=== PATIENT | female | born 1945 | race Caucasian/White ===

== ENCOUNTER 2017-07-15 04:22 | Emergency (ER) | payer MEDICARE ==
[~2017-07-15] VITALS: Ht 165.1 cm; Wt 88.9 kg
[~2017-07-15 04:22] MED LIST: AMLODIPINE BESYL5 MG PO; ATENOLOL100 MG PO; BETIMOL5 M1 OP; CARAFATE1 GM/10 ML PO; DAPSONE25 MG PO; IBUPROFEN800 MG PO; IRBESARTAN-HCT1 EAC1 PO; JANUMET 50-1,01 EACH PO; JANUMET XR 50-1 EAC1 PO; LANTUS SOL100 UNIT/1 SQ; LATANOPROST2.5 ML OP; NORCO 5-325 TA1 EACH PO; PROTONIX40 MG PO; SYNTHROID88 MCG PO; VITAMIN D5000 UNIT PO; VYTORIN 10-401 EACH PO; ZANTAC150 MG PO; [UNRECOGNIZED DRUG - OTHER] TP
--- NOTE | 2017-07-15 16:53 | EKG ---
[facility] [address] [facility] [place], [place] [address] Signed Sinus rhythm with 1st degree AV block ST elevation, consider inferior injury or acute infarct ACUTE SC / STEMI Consider right ventricular involvement in acute inferior infarct Abnormal ECG No previous ECGs available Confirmed by GEOVANNI DAWSON MD ([id number]) on 07/15/2017 4:53:02 PM Electronically Signed By: GEOVANNI DAWSON MD 07/15/17 1653 PATIENT NAME: ADE DUMONT Electrocardiogram DATE OF : 43 PHYSICIAN: GEOVANNI DAWSON MD REPORT #: [id number] REPORT IS CONFIDENTIAL AND NOT TO BE RELEASED WITHOUT AUTHORIZATION
== END 2017-07-15 05:17 | disposition short-term general hospital (02) ==
LOC: ED 04:22
DX: I21.3 ST elevation (STEMI) myocardial infarction of unspecified site (principal); E03.9 Hypothyroidism, unspecified; E11.9 Type 2 diabetes mellitus without complications; Z88.8 Allergy status to other drugs, medicaments and biological substances; Z88.1 Allergy status to other antibiotic agents; Z79.899 Other long term (current) drug therapy; Z79.4 Long term (current) use of insulin
CPT/HCPCS: 71045; 80053; 84484; 85025; 93005; 93010; 96374; 99285; J1644

== ENCOUNTER 2018-07-19 02:43 | Emergency (ER) | payer MEDICARE ==
[~2018-07-19] VITALS: Ht 165.1 cm; Wt 90.7 kg
--- OUTSIDE RECORDS SUMMARY | ~2018-07-19 | XMS | Encounter Summary ---
Demographics + + + | Address | [address] | | | [place] [address] | + + + | Home Phone | | + + + | Preferred Language | Unknown | + + + | Marital Status | Single | + + + | Tenriism Affiliation | PEN | + + + | Race | White | + + + | Ethnic Group | Not or | + + + Author + + + | Author | [facility] | + + + | Organization | [facility] | + + + | Address | Unknown | + + + | Phone | Unavailable | + + + Support + + + + + | Name | Relationship | Address | Phone | + + + + + | Kenton Arshad | [address] | [address] | | | | | [place] | | | | | [address] | | + + + + + Care Team Providers + +------+ + | Care Staffing Operations Manager Name | Role | Phone | + +------+ + | Kaleb Ryder DO | PCP | | + +------+ + Encounter Details +--------+ + + + + | Date | Type | Department | Care Team | Description | +--------+ + + + + | 05/21/ | Orders Only | Dermatology | Radha Barillas MD | | | 2014 | | Medical at [facility] 16th | [address] | | | | | Floor [address] | [place], [place] | | | | | Michelle Mail Code: | [address] | | | | | [facility] | [phone] | | | | | Health and Healing, | | | | | | 16th floor | | | | | | [place], [place] | | | | | | [address] | | | | | | [phone] | | | +--------+ + + + + Social History + +-------+ +--------+------+ | Tobacco Use | Types | Packs/Day | Years | Date | | | | | Used | | + +-------+ +--------+------+ | Never Smoker | | | | | + +-------+ +--------+------+ + + +---------+ + | Alcohol Use | Drinks/Week | oz/Week | Comments | + + +---------+ + | Yes | | | | + + +---------+ + + + + | Sex Assigned at | Date Recorded | | | | + + + | Not on file | | + + + + + + + | Job Start Date | Occupation | Industry | + + + + | Not on file | Not on file | Not on file | + + + + + + + + | Travel History | Travel Start | Travel End | + + + + + + | No recent travel history available. | + + documented as of this encounter Plan of Treatment Not on filedocumented as of this encounter Visit Diagnoses Not on filedocumented in this encounter"
--- OUTSIDE RECORDS SUMMARY | ~2018-07-19 | XMS | Encounter Summary ---
Demographics + + + | Address | [address] | | | [place] [address] | + + + | Home Phone | | + + + | Preferred Language | Unknown | + + + | Marital Status | Single | + + + | Mandaen Affiliation | PEN | + + + | Race | White | + + + | Ethnic Group | Not or | + + + Author + + + | Author | [facility] | + + + | Organization | [facility] | + + + | Address | Unknown | + + + | Phone | Unavailable | + + + Support + + + + + | Name | Relationship | Address | Phone | + + + + + | Kenton Arshad | [address] | [address] | | | | | [place] | | | | | [address] | | + + + + + Care Team Providers + +------+ + | Care Carrier Packer Name | Role | Phone | + +------+ + | Aleksey Kaleb | PCP | | + +------+ + Reason for Visit + + + | Reason | Comments | + + + | Prior Authorization | [facility]uxan | | Request | | + + + Encounter Details +--------+ + + + + | Date | Type | Department | Care Team | Description | +--------+ + + + + | 12/26/ | Documentati | Dermatology | Radha Barillas MD | Prior Authorization | | 2016 | on | Medical at [facility] [address] | [address] | Request (rituxan) | | | | Floor [address] | [place], [place] | | | | | Ave Mail Code: | [address] | | | | | [address] [facility] | [phone] | | | | | Health and Healing, | | | | | | 16 floor | | | | | | [place], [place] | | | | | | [address] | | | | | | [phone] | | | +--------+ + + + [...] + + +---------+ + | Yes | 1 Standard drinks | 0.6 | | | | or equivalent | | | + + +---------+ + [...]
--- OUTSIDE RECORDS SUMMARY | ~2018-07-19 | XMS | Encounter Summary ---
Demographics + + + | Address | [address] | | | [place] [address] | + + + | Home Phone | | + + + | Preferred Language | Unknown | + + + | Marital Status | Single | + + + | Restorationism Affiliation | PEN | + + + | Race | White | + + + | Ethnic Group | Not or | + + + Author + + + | Author | [facility] | + + + | Organization | [facility] | + + + | Address | Unknown | + + + | Phone | Unavailable | + + + Support + + + + + | Name | Relationship | Address | Phone | + + + + + | Kenton Arshad | [address] | [address] | | | | | [place] | | | | | [address] | | + + + + + Care Team Providers + +------+ + | Care Photolithographer Name | Role | Phone | + +------+ + | Kaleb Ryder DO | PCP | | + +------+ + Encounter Details +--------+ + + + + | Date | Type | Department | Care Team | Description | +--------+ + + + + | 09/17/ | Documentati | Dermatology | Kaleb Ryder DO | | | 2016 | on | Medical at [facility] 16th | [facility] | | | | | Floor [address] | Internal Medicin | | | | | Ave Mail Code: | [address] [facility] | | | | | [address] Center for | [place] [address] | | | | | Health and Healing, | [phone] | | | | | 16th floor | | | | | | [place], [place] | | | | | | [address] | | | | | | [phone] | | | +--------+ + + + [...]
--- OUTSIDE RECORDS SUMMARY | ~2018-07-19 | XMS | Encounter Summary ---
Demographics + + + | Address | [address] | | | [place] [address] | + + + | Home Phone | | + + + | Preferred Language | Unknown | + + + | Marital Status | Single | + + + | Anglican Affiliation | PEN | + + + | Race | White | + + + | Ethnic Group | Not or | + + + Author + + + | Author | [facility] | + + + | Organization | [facility] | + + + | Address | Unknown | + + + | Phone | Unavailable | + + + Support + + + + + | Name | Relationship | Address | Phone | + + + + + | Kenton Arshad | [address] | [address] | | | | | [place] | | | | | [address] | | + + + + + Care Team Providers + +------+ + | Care Ripening Room Attendant Name | Role | Phone | + +------+ + | Kaleb Ryder DO | PCP | | + +------+ + Encounter Details +--------+ + + + + | Date | Type | Department | Care Team | Description | +--------+ + + + + | 09/17/ | Documentati | Dermatology | Kaleb Ryder DO | | | 2016 | on | Medical at [facility] 16th | [facility] | | | | | Floor [address] | Internal Medicin | | | | | Ave Mail Code: | [address] [facility] | | | | | [address] Center for | [place] [address] | | | | | Health and Healing, | [phone] | | | | | 16th floor | | | | | | [place], [place] | | | | | | [address] | | | | | | [phone] | | | +--------+ + + + [...]
--- OUTSIDE RECORDS SUMMARY | ~2018-07-19 | XMS | Encounter Summary ---
Demographics + + + | Address | [address] | | | [place] [address] | + + + | Home Phone | | + + + | Preferred Language | Unknown | + + + | Marital Status | Single | + + + | Sikhism Affiliation | PEN | + + + | Race | White | + + + | Ethnic Group | Not or | + + + Author + + + | Author | [facility] | + + + | Organization | [facility] | + + + | Address | Unknown | + + + | Phone | Unavailable | + + + Support + + + + + | Name | Relationship | Address | Phone | + + + + + | Kenton Arshad | [address] | [address] | | | | | [place] | | | | | [address] | | + + + + + Care Team Providers + +------+ + | Care Furnace Repairer Helper Name | Role | Phone | + +------+ + | Kaleb Ryder DO | PCP | | + +------+ + Encounter Details +--------+ + + + + | Date | Type | Department | Care Team | Description | +--------+ + + + + | 12/07/ | Documentati | Dermatology | Radha Barillas MD | | | 2014 | on | Medical at [facility] 16th | [address] | | | | | Floor [address] | [place], [place] | | | | | Michelle Mail Code: | [address] | | | | | [address] [facility] | [phone] | | | | | Health and Healing, | | | | | | 16th floor | | | | | | [place], [place] | | | | | | [address] | | | | | | [phone] | | | +--------+ + + + [...] | Yes | 1 Standard drinks | 0.5 | | | | or equivalent | [...]
--- OUTSIDE RECORDS SUMMARY | ~2018-07-19 | XMS | Encounter Summary ---
Demographics + + + | Address | [address] | | | [place] [address] | + + + | Home Phone | | + + + | Preferred Language | Unknown | + + + | Marital Status | Single | + + + | Pentecostalism Affiliation | PEN | + + + | Race | White | + + + | Ethnic Group | Not or | + + + Author + + + | Author | [facility] | + + + | Organization | [facility] | + + + | Address | Unknown | + + + | Phone | Unavailable | + + + Support + + + + + | Name | Relationship | Address | Phone | + + + + + | Kenton Arshad | [address] | | | | | [place] | | | | | [address] | | + + + + + Care Team Providers + +------+ + | Care Flexographic Printing Machinist Name | Role | Phone | + +------+ + | Aleksey Kaleb | PCP | | + +------+ + Reason for Visit + + + | Reason | Comments | + + + | Examination Of Skin | f/up oral BP | + + + Encounter Details +--------+---------+ + + + | Date | Type | Department | Care Team | Description | +--------+---------+ + + + | 08/15/ | Office | Dermatology | Radha Barillas MD | Bullous pemphigoid | | 2016 | Visit | Medical at [facility] [address] | [address] | (Primary Dx); | | | | Floor [address] | [place], [place] | Medication | | | | Ave Mail Code: | [id number] | monitoring | | | | [facility] | [phone] | encounter; | | | | Health and Healing, | | Lichenification and | | | | 16th floor | | lichen simplex | | | | [place], [place] | | chronicus; | | | | [address] | | Seborrheic | | | | [phone] | | keratoses, inflamed; | | | | | | Personal history of | | | | | | malignant melanoma | | | | | | of skin; Skin exam | | | | | | for malignant | | | | | | neoplasm; Other | | | | | | specified conditions | | | | | | influencing health | | | | | | status(V49.89) | +--------+---------+ + + + Social History + +-------+ [...] + + documented as of this encounter Last Filed Vital Signs + +---------+ + + | Vital Sign | Reading | Time Taken | Comments | + +---------+ + + | Blood Pressure | 142/88 | 08/16/2015 1:35 PM | | | | | PDT | | + +---------+ + + | Pulse | 64 | 08/16/2015 1:35 PM | | | | | PDT | | + +---------+ + + | Temperature | - | - | | + +---------+ + + | Respiratory Rate | 14 | 08/16/2015 1:35 PM | | | | | PDT | | + +---------+ + + | Oxygen Saturation | - | - | | + +---------+ + + | Inhaled Oxygen | - | - | | | Concentration | | | | + +---------+ + + | Weight | - | - | | + +---------+ + + | Height | - | - | | + +---------+ + + | Body Mass Index | - | - | | + +---------+ + + documented in this encounter Patient Instructions Patient Instructions Radha Barillas MD - 08/16/2015 2:00 PM PDT1.) increased dapsone to 1 50 mg (1.5 tabs) per day 2.) get labs in 1 month (CBC and CMP to monitor for dapsone side effects) 3.) injection into spot on buttock 4.) repeat freezing of right forearm DAPSONE Dermatology patient information How does this medication work? Dapsone inhibits the movement of Neutrophils, a type of white blood cells, into your skin. What is this medication commonly used for? ? It is used to treat dermatitis herpetiformis ? It is used to treat bullous pemphigoid and pemphigus ? It is used to treat lichen planus ? It is used to treat bullous lupus ? It is used to treat neutrophilic dermatoses What are some things I need to know, or do, while I am on this medication? ? Dapsone can cause very low blood counts in people who are deficient in an enzyme called G mnpkpy-4-Dbybtqvdp-Dehydrogenase (G6PD). We will test your enzyme level before starting the medication. ? Use control you trust to avoid getting while on this medication. ? Tell your provider if you are . ? Talk to your provider before starting any other prescription and/or over the counter medi cations while using this drug. What are some side effects of this medication? ? Headaches, dizziness, and nausea are common. Take your medication with food and notify y our provider if the symptoms persist. ? Sensitivity to sunlight. Use sunscreen and avoid prolonged sun exposure. ? Weakness of the hands or feet. This is usually reversible when the medication is stopped . ? Low blood counts are possible, so we will monitor your blood cell levels while you are on this medication. ? If you feel feverish, weak, or develop symptoms of a cold that do not improve during the first few weeks of taking the Dapsone, stop the medication immediately and call the clinic. ? Notify your provider if you develop yellowing of the skin or eyes, or if you develop unus ual bruising. Please notify your provider with questions or concerns. Please also refer to the medicatio n package insert for additional information. and ca documented in this encounter Progress Notes Radha Barillas MD - 08/18/2015 8:49 AM PDTI have reviewed the above note and edited the h istory, ROS, exam and the assessment and plan in the above scribed note of my visit with nakia s patient recorded by Ericka Wilson. Radha Barillas MD MSCE Flight Engineer Instructor of Dermatology [facility] arstephiestacey Ericka - 0 08/16/2015 1:44 PM PDT I, Ericka Wilson ([facility]), am functioning as a scribe for Radha Barillas M.D., Professor, [employer]. DERMATOLOGY FOLLOW UP PATIENT VISIT Last Appointment in [facility] was 05/24/2015 with Radha Barillas MD. Dx/Rx: BP/MMP --s/p MMF 1 gram BID (start date 11/2014 d/c 04/2015 due to cost and did not see improvemen t) --s/p methotrexate 20mg q week (increased to 20 mg weekly July of 2014- d/c 11/2014) --fluocinonide ointment PRN --s/p minocycline 100mg BID (took from 05/2014 - July 2014, then d/c'd due to no improvemen t) --s/p IVIG x 3 doses. Skin improvement without MM improvement --rituxan June of 2014 -- had hives on face and stopped. Given in home town. -- started dapsone 06/2015 after normal G6PD at 100 mg daily. 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 female who presents for follow up for bullous pemphigoid/mu cous membrane pemphigoid overlap and a skin full body check. Since last visit and normal G6P D (05/24/2015) patient has been taking dapsone 100 mg daily. Tolerating this dose of dapsone well. She denies hand or foot weakness or changes in sensation. Her H and H was normal on last check. She does not feel tired. She reports that her oral blisters are still present and she has a hard time swallowing. She reports that maybe her throat is less sore. Patient has a history of melanoma. Her melanoma occurred in 1960. She reports that she wo re boots while riding horses and developed an area that bleed. It was treated with excision and skin graft. She has never had a recurrent. She reports active areas of BP on her posterior neck and her right buttock. No other areas active. Today she has a concerning spot on the right arm that was previously treated with LN2 at [facility] last office. She would like to have this spot retreated. No other skin or systemic complaints. ROS: +dysphagia, odynophagia, weight loss (stable since last appointment), low appetite. Initial visit Started May of 2013 initially on her lower legs, chest and back. Biopsy was done of R tib ia and H&E and DIF was consistent with bullous pemphigoid. States that eventually she de veloped lesion in her mouth and nose. This started approximately Fall 2013 after a dental cl eaning. She was on prednisone in the very beginning of her course 2 years ago. Doesn't remem jarred dosing. Denies being clear from the prednisone. Was transitioned to MTX. started on IVIG Dec 2013. States that her skin has improved but her mouth and throat has continued to break out. Uses fluocinonide ointment as needed on her skin. Has tried lidocaine for her mouth ulc ers, doesn't help very much. She denies any redness of her eyes, gritty feeling or erosions. Does get nose bleeds and ulcers in her nose. Does have dysphagia and odynophagia. Has lost 30 lbs over the last 2 years. Has hx of one genital erosion. Denies nausea, vomitting, GI pa in, fever, chills, malaise or other systemic symptoms. Oral biopsy 05/21/2014 confirm MMP PAST MEDICAL HISTORY: - diabetes mellitus - hypertension - hypothyroidism - h/o MRSA neck abscess - melanoma age 15 unknown depth - glaucoma - vit D deficiency - primary hyperparathyroidism - last DEXA T score -1.5 SOCIAL HISTORY: First grandchild born spring 2014 in [place] Lives in [facility] and enjoys the annual round up MEDICATIONS: Current Medication List Name Sig ATENOLOL 50 MG TABLET ATORVASTATIN 10 MG TABLET Take 10 mg by mouth once daily. VITAMIN D-3 ORAL Take 1,000 Units by mouth. CLONIDINE 0.2 MG/24 HR WEEKLY TRANSDERMAL PATCH CLONIDINE HCL 0.1 MG TABLET Take 0.1 mg by mouth two times daily. CLOTRIMAZOLE 10 MG KRUNAL Take 1 tablet by mouth three times daily. Allow to dissolve for 1 5-30 minutes. DAPSONE 100 MG TABLET Take 1 tablet by mouth once daily. DEXAMETHASONE 0.5 MG/5 ML ORAL ELIXIR Swish and spit for 2 minutes three times per day FLUOCINONIDE 0.05 % TOPICAL OINTMENT Apply to affected area two times daily. Apply a thin layer to affected area. INSULIN GLARGINE 100 UNIT/ML (3 ML) SUBCUTANEOUS PEN Inject 42 Units under the skin (SUBC) once daily at bedtime. LATANOPROST 0.005 % EYE DROPS 1 drop once daily in the evening. LEVOTHYROXINE 88 MCG TABLET Take 88 mcg by mouth once daily. RANITIDINE 300 MG TABLET Take 300 mg by mouth two times daily. SUCRALFATE 100 MG/ML ORAL SUSPENSION Take by mouth once daily. TIMOLOL MALEATE 0.5 % EYE DROPS 1 drop two times daily. ALLERGIES: No Known Allergies PHYSICAL EXAMINATION: BP 142/88 | Pulse 64 | RR 14 The patient is a well appearing female who is alert with normal mood and affect. Awake, a lert and oriented xs 3. Pleasant and cooperative mood. A skin examination was performed including the scalp, face, eyelids, ears, lips, neck, ches t, back, abdomen, buttocks, R+L arms and hands, R+L legs and feet, and nails. Findings were within normal limits except for the following: -- 3 lichenified papules on the posterior neck -- right buttock there is a 5 mm lichenified papule -- 1 cm bulla vertex scalp -- right forearm with stuck on white verrucous papule -- left foot, between 1st and 2nd toes is a 4 mm light brown papule with scattered brown ma cules within - patient reports decades of stability -- left medial foot with a well healed scar without evidence of recurrence -- Normal # of nevi, the signature nevus is a 2-4 mm medium brown symmetric macule with a r eticulated pigment network on dermoscopy -- the gingiva and buccal mucosa are erythematous and desquamating. There is no normal muc marcela on the gingiva or the buccal mucosa 05/21/2014 DIF: FINDINGS: There is moderately intense linear deposition of both IgG and C3 found along the basement membrane zone. Additionally, there is patchy linear deposition of fibrinogen found at the basement membrane zone as well. There is no shaggy morphology to the deposition of fibrinogen. There is no specific deposition of IgM or IgA identified in these sections. COMMENTS/DIAGNOSIS: The above findings are consistent with a diagnosis of pemphigoid. It is not possible to separate cicatricial vs bullous pemphigoid on immunopathologic specimens. There are no findings to support a diagnosis of lichen planus in these sections. ASSESSMENT AND PLAN: 1. BP/MMP overlap, with poorly controlled oral disease. She has failed several medications and is unable to afford to continue the MMF solution. She is now using dapsone 100mg daily for her oral disease, but with no improvement. She is using fluocinonide as needed for her s kin lesions prn. -- Increase dapsone from 100mg to 150 mg PO pending G6PD level today. -- Ok to continue topical fluocinonide twice a day to spots on your body. -- Labs from 08/05 - WNL. Will have repeat CBC and CMP in one month to monitor for dapsone s nery effects. External order slip given. If H and H still normal and no improvement in disea se, consider increase to 200 mg daily of dapsone 2. Hx of melanoma, unknown depth, left medial foot -- No evidence of recurrence -- UV min reviewed -- ABCDEs reviewed 3. Inflamed Seborrheic keratosis, right arm (previously frozen, but did not resolve) Procedure: Liquid Nitrogen application Prior to beginning the procedure, PARQ were discussed. Liquid nitrogen was applied for 6-1 0 seconds with 2 freeze/thaw cycles to a total of 1 lesion. The expected blistering or scab doug reaction, as well as the possibility of hyperpigmented or hypopigmented scars was expla ined to the patient. The patient was counseled to return for further evaluation if lesion f ails to fully resolve after healing. 4. 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 All equipment required was ready a nd available. The patient was positioned appropriately. After PARQ addressed and scar facto rs discussed, the area was prepped with an isopropyl alcohol pad. 0.2 mls of 10 mg/ml kenalo g was injected. Blood loss was minimal. Patient reports no pain after the procedure. RETURN VISIT: 3-4 months or sooner if needed Ericka Wilson CMA Department of Dermatology [facility] 08/16/2015 documented i n this encounter Plan of Treatment Not on filedocumented as of this encounter Procedures + +--------+ + + + | Procedure Name | Priori | Date/Time | Associated Diagnosis | Comments | | | ty | | | | + +--------+ + + + | WA DESTRUC BENIGN | Routin | 08/18/2015 | Seborrheic | | | LESION, UP TO 14 | e | 9:04 AM | keratoses, inflamed | | | LESIONS | | PDT | Other specified | | | | | | conditions | | | | | | influencing health | | | | | | status(V49.89) | | + +--------+ + + + | WA INJ INTO SKIN | Routin | 08/16/2015 | Lichenification | | | LESIONS, UP TO AND | e | 2:02 PM | and lichen simplex | | | INCLUDE 7 LESIONS | | PDT | chronicus | | + +--------+ + + + documented in this encounter Visit Diagnoses + + | Diagnosis | + + | Bullous pemphigoid - Primary Pemphigoid | + + | Medication monitoring encounter Encounter for therapeutic drug monitoring | + + | Lichenification and lichen simplex chronicus | + + | Seborrheic keratoses, inflamed | + + | Personal history of malignant melanoma of skin | + + | Skin exam for malignant neoplasm Screening for malignant neoplasm of the skin | + + | Other specified conditions influencing health status(V49.89) Other specified | | conditions influencing health status | + + documented in this encounter Administered Medications + +--------+ + +------+---------+ | Medication Order | MAR | Action | Dose | Rate | Site | | | Action | Date | | | | + +--------+ + +------+---------+ | Triamcinolone Acetonide 10 | Given | 08/16/2015 | 10 mg/mL | | Right | | Mg/ml Intralesional | | 14:17 | | | Buttock | | | | PDT | | | | + +--------+ + +------+---------+ +---+---+ | | | +---+---+ documented in this encounter"
--- OUTSIDE RECORDS SUMMARY | ~2018-07-19 | XMS | Encounter Summary ---
Demographics + + + | Address | [address] | | | [place] [address] | + + + | Home Phone | | + + + | Preferred Language | Unknown | + + + | Marital Status | | + + + | Christian Affiliation | [id number] | + + + | Race | Unknown | + + + | Ethnic Group | Unknown | + + + Author + + + | Author | [facility] | | | and [place] | + + + | Organization | [facility] | | | and [place] | + + + | Address | Unknown | + + + | Phone | Unavailable | + + + Support + + +---------+ + | Name | Relationship | Address | Phone | + + +---------+ + | Marcelo Arshad | ECON | Unknown | | + + +---------+ + Care Team Providers + +------+ + | Care Director Of Channel Marketing Name | Role | Phone | + +------+ + | Kaleb Ryder DO | PCP | | + +------+ + Reason for Visit + + + | Reason | Comments | + + + | Medication Refill | | + + + Encounter Details +--------+--------+ + + + | Date | Type | Department | Care Team | Description | +--------+--------+ + + + | 05/30/ | Refill | [facility] | Vern Valdivia MD | Medication Refill | | 2018 | | CARDIOLOGY [address] | | | | | | [place], | | | | | | [place] [address] | | | | | | [phone] | | | +--------+--------+ + + + Social History + +-------+ +--------+------+ | Tobacco Use | Types | Packs/Day | Years | Date | | | | | Used | | + +-------+ +--------+------+ | Never Smoker | | | | | + +-------+ +--------+------+ + +---+---+---+ | Smokeless Tobacco: | | | | | Never Used | | | | + +---+---+---+ + + + | Sex Assigned at [...] + + documented as of this encounter Functional Status + + + + | Functional Status | Response | Date of Assessment | + + + + | Are you deaf or do you have serious | No | 07/16/2017 | | difficulty hearing? | | | + + + + | Are you blind or do you have serious | No | 07/16/2017 | | difficulty seeing, even when wearing | | | | glasses? | | | + + + + | Do you have serious difficulty walking or | No | 07/16/2017 | | climbing stairs? (5 years old or older) | | | + + + + | Do you have difficulty dressing or bathing? | No | 07/16/2017 | | (5 years old or older) | | | + + + + | Because of a physical, mental, or emotional | No | 07/16/2017 | | condition, do you have difficulty doing | | | | errands alone such as visiting a doctor's | | | | office or shopping? [15 years old or | | | | older)] | | | + + + + + + + + | Cognitive Status | Response | Date of Assessment | + + + + | Because of a physical, mental, or emotional | No | 07/16/2017 | | condition, do you have serious difficulty | | | | concentrating, remembering, or making | | | | decisions? (5 years old or older) | | | + + + + documented as of this encounter Plan of Treatment Not on filedocumented as of this encounter Visit Diagnoses Not on filedocumented in this encounter"
--- OUTSIDE RECORDS SUMMARY | ~2018-07-19 | XMS | Encounter Summary ---
Demographics + + + | Address | [address] | | | [place] [address] | + + + | Home Phone | | + + + | Preferred Language | Unknown | + + + | Marital Status | | + + + | Gnosticist Affiliation | 1028 | + + + | Race | Unknown | + + + | Ethnic Group | Unknown | + + + Author + + + | Author | [facility] | | | and Tomana | + + + | Organization | [facility] | | | and [...] Team Providers + +------+ + | Care Storage Solutions Architect Name | Role | Phone | + +------+ + | Kaleb Ryder DO | PCP | | + +------+ + Reason for Visit + + + | Reason | Comments | + + + | Follow-up | | + + + Encounter Details +--------+---------+ + + + | Date | Type | Department | Care Team | Description | +--------+---------+ + + + | 04/26/ | Office | [facility] | Vern Valdivia MD | Dyslipidemia | | 2019 | Visit | CARDIOLOGY [address] | | (Primary Dx); | | | | [place], | | Essential | | | | [place] [address] | | hypertension | | | | [phone] | | | +--------+---------+ + + + Social History [...] this encounter Last Filed Vital Signs + + + + | Vital Sign | Reading | Time Taken | + + + + | Blood Pressure | 140/80 | 04/26/2018912 PDT | + + + + | Pulse | 74 | 04/26/2018912 PDT | + + + + | Temperature | - | - | + + + + | Respiratory Rate | 18 | 04/26/2018912 PDT | + + + + | Oxygen Saturation | - | - | + + + + | Inhaled Oxygen | - | - | | Concentration | | | + + + + | Weight | 90 kg (198 lb 6.6 | 04/26/2018912 PDT | | | oz) | | + + + + | Height | 165.1 cm (5' 5") | 04/26/2018912 PDT | + + + + | Body Mass Index | 33.02 | 04/26/2018912 PDT | + + + + documented in this encounter Functional Status + + + [...] + + documented as of this encounter Patient Instructions Patient Instructions Shreya Clarke RN - 04/26/2018 9:30 PDT Blood test: Non-fasting Date Due: today Where to go for labs: [facility]- [address] [facility] Blood test: Fasting- 12 hours prior to test, no food, no caffiene, water is ok Date Due: 8 weeks, middle of June Where to go for labs: Lab of your choice, please see lab orders, take them with you to the lab. Increase atorvastatin to 40 mg one daily Stop clopidogrel (Plavix) on August 08, 2018 Follow up appointment: 6 months Provider: Vern Valdivia MD Date: Check-In Time: documented in this encounter Progress Notes Vern Valdivia MD - 04/26/2018 0930 PDT PATIENT NAME: Matilda Arshad : 1945: AGE: 72 y.o. PRIMARY CARE: Kaleb Ryder DO CARDIOLOGY CLINIC PROGRESS NOTE Ms. Arshad presents for clinic follow-up. Since her previous visit of 12/28/17, she is doi ng well from a cardiac viewpoint without complaints of chest pain. Her blood pressure had b een elevated and after calling our office we added hydrochlorothiazide 25 mg daily and her b lood pressure control had improved. Her LDL cholesterol on 02/25/18 was 85 on her increased dose of atorvastatin 20 mg daily. She has not noticed worsening myalgia on the higher dose of atorvastatin. MEDICATIONS: Current Outpatient Prescriptions Medication Sig Dispense Refill aspirin 81 mg chewable tablet Take 1 tablet by mouth Daily. 90 tablet 3 atorvaSTATin (LIPITOR) 40 mg tablet Take 1 tablet by mouth nightly. 30 tablet 5 brimonidine (ALPHAGAN) 0.2% ophthalmic solution Cholecalciferol (VITAMIN D3) 2000 units CHEW Take 2,000 Units by mouth Daily. clopidogrel (PLAVIX) 75 mg tablet Take 1 tablet by mouth Daily. Stop clopidogrel on 08/08 60 tablet 0 hydroCHLOROthiazide 25 mg tablet Take 1 tablet by mouth Daily. 30 tablet 3 insulin aspart (NOVOLOG FLEXPEN) 100 units/mL injection pen Inject 5-10 Units under the skin 3 times daily (before meals). insulin glargine (LANTUS SOLOSTAR) 100 units/mL injection (pen) Inject 58 Units under t he skin nightly. latanoprost (XALATAN) 0.005% ophthalmic solution Place 1 drop into both eyes nightly. levothyroxine (SYNTHROID) 88 mcg tablet Take 88 mcg by mouth every morning (before chad kfast). metoprolol succinate (TOPROL-XL) 100 mg ER tablet Take 100 mg by mouth Daily. nitroglycerin (NITROSTAT) 0.4 mg SL tablet Take one tablet under tongue as needed for c hest pain, may repeat every 5 minutes up to 3 doses. If no relief after 3rd dose, call 911. 25 tablet 11 telmisartan (MICARDIS) 80 MG tablet Take 1 tablet by mouth Daily. 90 tablet 3 timolol maleate (TIMOPTIC) 0.5% ophthalmic solution Place 1 drop into both eyes 2 times daily. No current facility-administered medications for this visit. ALLERGIES Allergies Allergen Reactions Ciprofloxacin Rash Shellfish Other (See Comments) and Sensitivity Sneezed and turns red. PHYSICAL EXAM Vital signs: Vitals: 04/26/18 0913 BP: 140/80 Pulse: 74 Resp: 18 Admit Weight: Weight: 90 kg (198 lb 6.6 oz) Current weight: Weight: 90 kg (198 lb 6.6 o z) Body mass index is 33.02 kg/m. General: Alert, resting comfortably Chest: Clear Cardiovascular: Nondisplaced apical impulse, regular rhythm, S4 present, no S3, jugular kranthi ous pressure normal Gastrointestinal: Abdomen soft, non-tender, normal bowel sounds, no organomegaly nor masses . Extremities: No edema Neuro: within normal LABS: Appointment on 04/26/2018 Component Date Value Ref Range Status Na 04/26/2018 137 136 - 145 mmol/L Final K 04/26/2018 4.1 3.4 - 5.1 mmol/L Final Cl 04/26/2018 101 98 - 107 mmol/L Final CO2 04/26/2018 27 20 - 31 mmol/L Final Anion Gap 04/26/2018 9 3 - 16 mmol/L Final Glucose 04/26/2018 241* 60 - 106 mg/dL Final BUN 04/26/2018 14 9 - 23 mg/dL Final Creatinine 04/26/2018 1.15* 0.55 - 1.02 mg/dL Final eGFR if not 04/26/2018 46* >=60 mL/min/1.73m2 Final Ca 04/26/2018 10.8* 8.7 - 10.4 mg/dL Final BUN/Creatinine Ratio 04/26/2018 12.2 Final IMAGING: No results found. DIAGNOSES AND ASSESSMENTS: 1. Coronary atherosclerosis: Patient has no angina, she is status post RCA PCI in July 2017 . She continues on dual antiplatelet therapy 2. Dyslipidemia: LDL remains above target, will increase atorvastatin dose 3. Hypertension: Blood pressure control improved with addition of hydrochlorothiazide PLAN OR RECOMMENDATIONS: [facility] today Increase atorvastatin 40 mg daily Fasting lipid profile, ALT 8 weeks Discontinue clopidogrel August 08, 2018 Clinic follow-up 6 months or sooner as needed Recommend whole food plant-based diet, increase aerobic activity I appreciate the opportunity of participating in the care of this patient. Vern Valdivia MD,[facility], 04/27/2018 11:27 documented in this encoun ter Plan of Treatment + +--------+ + + | Name | Priori | Associated Diagnoses | Order Schedule | | | ty | | | + +--------+ + + | Lipid Panel | Routin | Dyslipidemia | Expected: | | | e | | 05/27/2018, Expires: | | | | | 04/26/2019 | + +--------+ + + | ALT | Routin | Dyslipidemia | Expected: | | | e | | 05/27/2018, Expires: | | | | | 04/27/2019 | + +--------+ + + documented as of this encounter Results Basic Metabolic Panel (04/26/2018 10:35 PDT) + + + + + + | Component | Value | Ref Range | Performed | Pathologist | | | | | At | Signature | + + + + + + | Na | 137 | 136 - 145 | [facility] | | | | | mmol/L | [facility] | | | | [facility] | [facility] | | | | | | LABORATORY | | + + + + + + | K | 4.1 | 3.4 - 5.1 | [facility] | | | | | mmol/L | [facility] | | | | | | [facility] | | | | | | [facility] - | | | | | | LABORATORY | | + + + + + + | Cl | 101 | 98 - 107 mmol/L | [facility] | | | | | | [facility] | | | | | | [facility] | | | | | [facility] - | | | | | | LAB[facility]ATORY | | + + + + + + | CO2 | 27 | 20 - 31 mmol/L | [facility] | | | | | | [facility] | | | | | | [facility] | | | | [facility] - | | | | | | LAB[facility]ATORY | | + + + + + + | Anion Gap | 9 | 3 - 16 mmol/L | [facility] | | | | | | [facility] | | | | | | [facility] | | | | [facility] - | | | | | | LAB[facility]ATORY | | + + + + + + | Glucose | 241 (H) | 60 - 106 mg/dL | [facility] | | | | | | [facility] | | [facility] | | | [facility] | | | | | | [facility] - | | | | | | LABORATORY | | + + + + + + | BUN | 14 | 9 - 23 mg/dL | [facility] | | | | | | [facility] | | | | | | [facility] | | | | | [facility] - | | | | | | LABORATORY | | + + + + + + | Creatinine | 1.15 (H) | 0.55 - 1.02 | [facility] | | | | | mg/dL | [facility] | [facility] | | | | | | [facility] - | | | | | | LABORATORY | | + + + + + + | eGFR if not | 46 (L) | >=60 | [facility] | | | | | mL/min/1.73m2 | [facility] | | [facility] | | | | | | [facility] - | | | | | | LABORATORY | | + + + + + + | Ca | 10.8 (H) | 8.7 - 10.4 | [facility] | | | | | mg/dL | [facility] | | | | | | [facility] | | | | | | [facility] - | | | | | | LABORATORY | | + + + + + + | BUN/Creatin | 12.2 | | [facility] | | | ine Ratio | | | [facility] | | | | | | [facility] | | | | | | [facility] - | | | | | | LABORATORY | | + + + + + + + + | Specimen | + + | Blood | + + + + + + + | Performing | Address | City/State/Zipcode | Phone Number | | Organization | | | | + + + + + | [facility] | [address] | [place] | [phone] | | [facility] | | [address] | | | - LABORATORY | | | | + + + + + documented in this encounter Visit Diagnoses + + | Diagnosis | + + | Dyslipidemia - Primary Other and unspecified hyperlipidemia | + + | Essential hypertension Unspecified essential hypertension | + + documented in this encounter
--- OUTSIDE RECORDS SUMMARY | ~2018-07-19 | XMS | Encounter Summary ---
Demographics + + + | Address | [address] | | | [place] [address] | + + + | Home Phone | | + + + | Preferred Language | Unknown | + + + | Marital Status | Single | + + + | Roman Catholic Affiliation | PEN | + + + | Race | White | + + + | Ethnic Group | Not or | + + + Author + + + | Author | [facility] | + + + | Organization | [facility] | + + + | Address | Unknown | + + + | Phone | Unavailable | + + + Support + + + + + | Name | Relationship | Address | Phone | + + + + + | Kenton Arshad | [address] | [address] | | | | | [place] | | | | | [address] | | + + + + + Care Team Providers + +------+ + | Care Motor And Generator Assembler Name | Role | Phone | + +------+ + | Kaleb Ryder DO | PCP | | + +------+ + Reason for Visit + + + | Reason | Comments | + + + | Discussion | | + + + Encounter Details +--------+ + + + + | Date | Type | Department | Care Team | Description | +--------+ + + + + | 12/03/ | Telephone | Dermatology | Radha Barillas MD | Discussion | | 2014 | | Medical at [facility] 16 | [address] | | | | | Floor [address] | [place], [place] | | | | | Ave Mail Code: | [address] | | | | | [address] [facility] | [phone] | | | | | Health and Healing, | | | | | | 16 floor | | | | | | [place], [place] | | | | | | [address] | | | | | | [phone] | | | +--------+ + + + [...]
--- OUTSIDE RECORDS SUMMARY | ~2018-07-19 | XMS | Encounter Summary ---
Demographics + + + | Address | [address] | | | [place] [address] | + + + | Home Phone | | + + + | Preferred Language | Unknown | + + + | Marital Status | Single | + + + | Anabaptism Affiliation | PEN | + + + | Race | White | + + + | Ethnic Group | Not or | + + + Author + + + | Author | [facility] | + + + | Organization | [facility] | + + + | Address | Unknown | + + + | Phone | Unavailable | + + + Support + + + + + | Name | Relationship | Address | Phone | + + + + + | Kenton Arshad | [address] | [address] | | | | | [place] | | | | | [address] | | + + + + + Care Team Providers + +------+ + | Care Health And Safety Specialist Name | Role | Phone | + +------+ + | Aleksey Kaleb DO | PCP | | + +------+ + Reason for Visit + + + | Reason | Comments | + + + | Test Results | | + + + Encounter Details +--------+ + + + + | Date | Type | Department | Care Team | Description | +--------+ + + + + | 05/29/ | Telephone | Dermatology | Radha Barillas MD | Test Results | | 2014 | | Medical at [facility] 16th | [address] | | | | | Floor [address] | [place], [place] | | | | | Ave Mail Code: | [address] | | | | | [facility] | [phone] | | | | | Health and Healing, | | | | | | 16th floor | | | | | | [place], [place] | | | | | | [address] | | | | | | [phone] | | | +--------+ + + + [...]
--- OUTSIDE RECORDS SUMMARY | ~2018-07-19 | XMS | Encounter Summary ---
Demographics + + + | Address | [address] | | | [place] [address] | + + + | Home Phone | | + + + | Preferred Language | Unknown | + + + | Marital Status | Single | + + + | Methodist Affiliation | PEN | + + + | Race | White | + + + | Ethnic Group | Not or | + + + Author + + + | Author | [facility] | + + + | Organization | [facility] | + + + | Address | Unknown | + + + | Phone | Unavailable | + + + Support + + + + + | Name | Relationship | Address | Phone | + + + + + | Kenton Arshad | [address] | [address] | | | | | [place] | | | | | [address] | | + + + + + Care Team Providers + +------+ + | Care Entry Level Financial Analyst Name | Role | Phone | + [...] | +--------+ + + + + | 12/11/ | Telephone | Dermatology | Radha Barillas MD | Discussion | | 2015 | | Medical at [facility] 16 | [address] | | | | | Floor [address] | [place], [place] | | | | | Ave Mail Code: | [address] | | | | | [facility] | [phone] | | | | | Health and Healing, | | | | | | 16 floor | | | | | | [place], [place] | | | | | | [address] | | | | | | [phone] | | | +--------+ + + + [...]
--- OUTSIDE RECORDS SUMMARY | ~2018-07-19 | XMS | Encounter Summary ---
Demographics + + + | Address | [address] | | | [place] [address] | + + + | Home Phone | | + + + | Preferred Language | Unknown | + + + | Marital Status | Single | + + + | Zoroastrianism Affiliation | PEN | + + + | Race | White | + + + | Ethnic Group | Not or | + + + Author + + + | Author | [facility] | + + + | Organization | [facility] | + + + | Address | Unknown | + + + | Phone | Unavailable | + + + Support + + + + + | Name | Relationship | Address | Phone | + + + + + | Kenton Arshad | [address] | [address] | | | | | [place] | | | | | [address] | | + + + + + Care Team Providers + +------+ + | Care Absorption Plant Operator Name | Role | Phone | + +------+ + | Kaleb Ryder | PCP | | + +------+ + Reason for Visit + + + | Reason | Comments | + + + | Care Coordination | | + + + Encounter Details +--------+ + + + + | Date | Type | Department | Care Team | Description | +--------+ + + + + | 07/10/ | Telephone | Dermatology | Radha Barillas MD | Care Coordination | | 2014 | | Medical at [facility] 16th | [address] | | | | | Floor [address] | [place], [place] | | | | | Ave Mail Code: | [address] | | | | | [address] [facility] | [phone] | | | | | Health and Healing, | | | | | | 16 floor | | | | | | [place], [place] | | | | | | [address] | | | | | | [phone] | | | +--------+ + + + [...]
--- OUTSIDE RECORDS SUMMARY | ~2018-07-19 | XMS | Encounter Summary ---
Demographics + + + | Address | [address] | | | [place] [address] | + + + | Home Phone | | + + + | Preferred Language | Unknown | + + + | Marital Status | Single | + + + | Quaker Affiliation | PEN | + + + | Race | White | + + + | Ethnic Group | Not or | + + + Author + + + | Author | [facility] | + + + | Organization | [facility] | + + + | Address | Unknown | + + + | Phone | Unavailable | + + + Support + + + + + | Name | Relationship | Address | Phone | + + + + + | Kenton Arshad | [address] | [address] | | | | | [place] | | | | | [address] | | + + + + + Care Team Providers + +------+ + | Care Flooring Installer Name | Role | Phone | + [...] | | 2015 | | Medical at [facility] 16 | [address] | | | | | Floor [address] | [place], [place] | | | | | Ave Mail Code: | [address] | | | | | [address] [facility] | [phone] | | | | | Health and Healing, | | | | | | 16 floor | | | | | | [place], [place] | | | | | | [address] | | | | | | [phone] | | | +--------+ + + + [...]
--- OUTSIDE RECORDS SUMMARY | ~2018-07-19 | XMS | Encounter Summary ---
Demographics + + + | Address | [address] | | | [place] [address] | + + + | Home Phone | | + + + | Preferred Language | Unknown | + + + | Marital Status | Single | + + + | Hinduism Affiliation | PEN | + + + [...] [place] | | | | | [address] | | + + + + + Care Team Providers + +------+ + | Care Commercial Leasing Agent Name | Role | Phone | + [...] | +--------+ + + + + | 11/05/ | Telephone | Dermatology | Radha Barillas MD | Discussion | | 2014 | | Medical at [facility] 16 | [address] | | | | | Floor [address] | [place], [place] | | | | | Ave Mail Code: | [address] | | | | | [facility] | [phone] | | | | | Health and Healing, | | | | | | 16 floor | | | | | | [place], [place] | | | | | | [address] | | | | | | [phone] | | | +--------+ + + + [...]
--- OUTSIDE RECORDS SUMMARY | ~2018-07-19 | XMS | Encounter Summary ---
Demographics + + + | Address | [address] | | | [place] [address] | + + + | Home Phone | | + + + | Preferred Language | Unknown | + + + | Marital Status | Single | + + + | Presybeterian Affiliation | PEN | + + + | Race | White | + + + | Ethnic Group | Not or | + + + Author + + + | Author | [facility] | + + + | Organization | [facility] | + + + | Address | Unknown | + + + | Phone | Unavailable | + + + Support + + + + + | Name | Relationship | Address | Phone | + + + + + | Kenton Arshad | [address] | [address] | | | | | [place] | | | | | [address] | | + + + + + Care Team Providers + +------+ + | Care Typewriters Functional Tester Name | Role | Phone | + +------+ + | Kaleb Ryder DO | PCP | | + +------+ + Encounter Details +--------+ + + + + | Date | Type | Department | Care Team | Description | +--------+ + + + + | 12/07/ | Documentati | Dermatology | Radha Barillas MD | | | 2014 | on | Medical at [facility] 16th | [address] | | | | | Floor [address] | [place], [place] | | | | | [place] Mail Code: | [address] | | | | | [facility] | [phone] | | | | | Health and Healing, | | | | | | 16th floor | | | | | | [place], [place] | | | | | | [address] | | | | | | [phone] | | | +--------+ + + + [...]
--- OUTSIDE RECORDS SUMMARY | ~2018-07-19 | XMS | Encounter Summary ---
Demographics + + + | Address | [address] | | | [place] [address] | + + + | Home Phone | | + + + | Preferred Language | Unknown | + + + | Marital Status | Single | + + + | Orthodox Affiliation | PEN | + + + | Race | White | + + + | Ethnic Group | Not or | + + + Author + + + | Author | [facility] | + + + | Organization | [facility] | + + + | Address | Unknown | + + + | Phone | Unavailable | + + + Support + + + + + | Name | Relationship | Address | Phone | + + + + + | Kenton Arshad | [address] | [address] | | | | | [place] | | | | | [address] | | + + + + + Care Team Providers + +------+ + | Care Signal Tower Director Name | Role | Phone | + +------+ + | Aleksey Kaleb | PCP | | + +------+ + Reason for Visit + + + | Reason | Comments | + + + | Examination Of Skin | follow-up bullous pemphigoid - problematic areas: arms and mouth | + + + Encounter Details +--------+---------+ + + + | Date | Type | Department | Care Team | Description | +--------+---------+ + + + | 08/17/ | Office | Dermatology | Radha Barillas MD | Bullous pemphigoid | | 2014 | Visit | Medical at [facility] [address] | [address] | (Primary Dx); Mucous | | | | Floor [address] | [place], [place] | membrane | | | | Ave Mail Code: | [id number] | pemphigoid; | | | | [address] for | [phone] | Encounter for | | | | Health and Healing, | | long-term (current) | | | | 16th floor | | use of other | | | | [place], [place] | | medications | | | | [address] | | | | | | [phone] | | | +--------+---------+ + + + [...] +---------+ + + | Blood Pressure | 152/92 | 08/17/2014 4:01 PM | | | | | PDT | | + +---------+ + + | Pulse | 84 | 08/17/2014 4:01 PM | | | | | PDT | | + +---------+ + + | Temperature | - | - | | + +---------+ + + | Respiratory Rate | - | - | | + [...] in this encounter Patient Instructions Patient Instructions Ree Aranda MD - 08/17/2014 4:36 PM PDTPLAN: --stop minocycline --continue methotrexate 20mg (4 on Wednesday, 4 on Wednesday) once per week. Options in the futu re include increasing dose to 25mg per week vs switching to injection form. Other medication s we can consider if methotrexate does not help include azathioprine or mycophenolate mofeti l. --continue folic acid 1mg once daily --start prednisone taper to see if we can get oral disease under better control. Take 4 tab lets daily for 1 week, then 3 tablets daily for 1 week, then 2 tablets daily for 1 week, the n 1 tablet daily for 1 week --start dexamethasone swish and spit 3 times per day --start clotrimazole troches 3 times a day while using the dexamethasone to prevent yeast g rowth in the mouth --ok to use topical fluocinonide twice a day to spots on your body. Return in 3-4 weeks. OK to double book on Wednesday in September. documented in this encounter Progress Notes Radha Barillas MD - 08/17/2014 6:29 PM PDTI personally interviewed the patient, performed the pertinent parts of the physical examination and personally formulated the plan with the resident. I agree with the residents documentation and have documented any additions or ex ceptions. Radha Barillas MD Baggage Security Checker of Dermatology [facility] Ree Carrillo MD - 0 08/17/2014 4:25 PM PDT DERMATOLOGY Follow Up PATIENT VISIT Last Office Visit in [facility] was on 05/21/14 at 2:15 pm with Radha Barillas MD. Dx/Rx: BP/MMP --methotrexate 20mg q week (increased to 20 mg weekly July of 2014) --minocycline 100mg BID (took from 05/2014 - July 2014, then d/c'd) --fluocinonide ointment PRN --s/p IVIG x 3 doses. Skin improvement without MM improvement -- rituxan June of 2014 -- had hives on face and stopped. Given in home town. HISTORY OF PRESENT ILLNESS: Matilda Arshad is a 68 y.o. female who presents for follow up for bullous pemphigoid/mu cous membrane pemphigoid overlap. She was last seen in 05/2014. At that visit, minocycline 10 0mg BID was added to methotrexate 15mg q weekly. She was set up to have rituximab infusions done locally (near [place]). While receiving her first infusion on 07/04/2014, she develope d hives, facial flushing and elevated blood pressure so infusion was discontinued prematurel y. She did not have any angioedema, shortness of breath or chest pain. She did not have any subsequent infusions as she was afraid of the hives/flushing recurring. Dr. Barillas was alerted of this occurrence and subsequently increased her methotrexate to 20mg once weekly. She has completed three weeks on this dose. She also has been taking the minocycline 100mg 1-2 time s daily. She has a difficult time swallowing the minocycline due to large size so occasional ly coughs it up. She feels that her scalp and nasal disease has cleared, however her mouth i s still very inflamed. She has many oral ulcers, pain with swallowing, bleeding gums with ea ting and brushing teeth. She also had a small skin break out of itchy bumps on her right arm and left elbow. She uses fluocinonide ointment which she does not think helps very much. Sh mynor is not using anything topically in her mouth. ROS: +dysphagia, odynophagia, weight loss, low appetite PAST MEDICAL HISTORY: - diabetes mellitus - hypertension - hypothyroidism - h/o MRSA neck abscess - melanoma age 16 unknown depth - glaucoma - vit D deficiency - primary hyperparathyroidism - last DEXA T score -1.5 SOCIAL HISTORY: First grandchild born 3 months ago in [place] MEDICATIONS: Current Medication List Name Sig ATENOLOL 100 MG TABLET Take 100 mg by mouth once daily. ATORVASTATIN 10 MG TABLET Take 10 mg by mouth once daily. VITAMIN D-3 ORAL Take 1,000 Units by mouth. CLONIDINE HCL 0.1 MG TABLET Take 0.1 mg by mouth two times daily. FLUOCINONIDE 0.05 % TOPICAL OINTMENT Apply to affected area two times daily. Apply a thin layer to affected area. FOLIC ACID 1 MG TABLET Take 1 tablet by mouth once daily. INSULIN GLARGINE 100 UNIT/ML (3 ML) SUBCUTANEOUS PEN Inject 42 Units under the skin (SUBC) once daily at bedtime. LEVOTHYROXINE 88 MCG TABLET Take 88 mcg by mouth once daily. METHOTREXATE SODIUM 2.5 MG TABLET 4 on Mondays, and 4 on Tuesdays. MINOCYCLINE 100 MG CAPSULE Take 1 capsule by mouth every twelve hours. RANITIDINE 300 MG TABLET Take 300 mg by mouth two times daily. SUCRALFATE 100 MG/ML ORAL SUSPENSION Take by mouth once daily. TIMOLOL MALEATE 0.5 % EYE DROPS 1 drop two times daily. ALLERGIES: No Known Allergies PHYSICAL EXAMINATION: BP 152/92 | Pulse 84 Well-developed, well-nourished female in no acute distress. Awake, alert and oriented. Pl easant and cooperative mood. A complete skin examination was performed including the scalp/hair, head/face, eyelids/conj unctivae, lips, teeth, gums, oropharynx, neck, chest, back, abdomen, buttocks, bilateral arm s and legs, bilateral hands and feet, and nails. 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 PTH: 96 (H) Calcium: 10.2 Vitamin D: 21 (L) 05/21/2014 DIF: FINDINGS: There is moderately intense [...] these sections. ASSESSMENT AND PLAN: 1. BP/MMP overlap. Oral disease is poorly controlled. She has taken 3 weeks of methotrexat e at increased dose of 20mg per week. Discussed that medication needs at least 8 weeks to ta ke effect. --discussed that the symptoms of hives and facial flushing that occured during her rituxima b infusion are not life threatening and should not preclude her from receiving the infusion again in the future. If we decide to try rituximab again in the future, will [facility]. --stop minocycline --continue methotrexate 20mg (4 on Wednesday, 4 on Wednesday) once per week. Options in the futu re include increasing dose to 25mg per week vs switching to injection form. --Other medications we can consider if methotrexate does not help include azathioprine or m ycophenolate mofetil. --continue folic acid 1mg once daily --start prednisone taper to see if we can get oral disease under better control. Take 4 tab lets daily for 1 week, then 3 tablets daily for 1 week, then 2 tablets daily for 1 week, the n 1 tablet daily for 1 week. Reviewed side effects: When used for short periods (2-3 weeks) , side effects are self-limited and reversible with discontinuation of the drug. These inclu de increased appetite, changes in mood or behavior, hyperglycemia, hypertension or hypokalem ia. With supraphysiologic doses for longer periods (>4 weeks), there is an increased risk fo r more serious complications. These include osteoporosis, bone necrosis, glaucoma, cataracts , gastritis, peptic ulcers, infections, growth retardation, delayed healing, striae, muscle atrophy. Another potential very serious risk with alf use is steroid withdrawal syndro me or adrenal crisis. --start dexamethasone swish and spit 3 times per day --start clotrimazole troches 3 times a day while using the dexamethasone to prevent yeast g rowth in the mouth --ok to use topical fluocinonide twice a day to spots on your body. --labs ok this month. Will check CBC and CMP again in 3 months. 2. Hx of melanoma, unknown depth. Not addressed today 3. Elevated PTH --currently being worked up by rail track maintainer. RETURN VISIT: Return in 3-4 weeks. OK to double book on Wednesday afternoon in September. REE ARANDA MD Resident, Department of Dermatology [facility] and [facility] [place] documented in this enc ounter Plan of Treatment Not on filedocumented as of this encounter Procedures + +--------+ + + + | Procedure Name | Priori | Date/Time | Associated Diagnosis | Comments | | | ty | | | | + +--------+ + + + | CBC, WITH | Routin | 08/09/2014 | | Results for this | | DIFFERENTIAL | e | | | procedure are in the | | | | | | results section. | + +--------+ + + + | COMPLETE METABOLIC | Routin | 08/09/2014 | | Results for this | | SET | e | | | procedure are in the | | (NA,K,CL,CO2,BUN,CRE | | | | results section. | | AT,GLUC,CA,AST,ALT,B | | | | | | TRACI TOTAL,ALK | | | | | | PHOS,ALB,PROT TOTAL) | | | | | + +--------+ + + + documented in this encounter Results COMPLETE METABOLIC SET (NA,K,CL,CO2,BUN,CREAT,GLUC,CA,AST,ALT,BILI TOTAL,ALK PHOS,ALB,PROT TOTAL) (08/09/2014) + +-------+ + + + | Component | Value | Ref Range | Performed | Pathologist | | | | | At | Signature | + +-------+ + + + | GLUCOSE, | 83 | 65 - 110 mg/dL | [facility] | | | PLASMA | | | LABORATORY | | | (LAB) | | | - | | | | | | [facility] | | + +-------+ + + + | BUN, PLASMA | 13 | mg/dL | [facility] | | | (LAB) | | | LABORATORY | | | | | | - | | | | | | [facility] | | + +-------+ + + + | CREATININE | 0.65 | mg/dL | [facility] | | | PLASMA | | | LABORATORY | | | (LAB) | | | - | | | | | | [facility] | | + +-------+ + + + | TOTAL | 6.2 | g/dL | [facility] | | | PROTEIN, | | | LABORATORY | | | PLASMA | | | - | | | (LAB) | | | [facility] | | + +-------+ + + + | ALBUMIN, | 3.8 | g/dL | [facility] | | | PLASMA | | | LABORATORY | | | (LAB) | | | - | | | | | | [facility] | | + +-------+ + + + | CALCIUM, | 10.2 | mg/dL | [facility] | | | PLASMA | | | LABORATORY | | | (LAB) | | | - | | | | | | [facility] | | + +-------+ + + + | BILIRUBIN | 1 | Transcutaneous | [facility] | | | TOTAL | | Bilirubinometer | LABORATORY | | | | | | - | | | | | | [facility] | | + +-------+ + + + | ALK PHOS | 91 | U/L | [facility] | | | | | | LABORATORY | | | | | | - | | | | | | [facility] | | + +-------+ + + + | AST(SGOT) | 42 | U/L | [facility] | | | | | | LABORATORY | | | | | | - | | | | | | [facility] | | + +-------+ + + + | SODIUM, | 43 | mmol/L | [facility] | | | PLASMA | | | LABORATORY | | | (LAB) | | | - | | | | | | [facility] | | + +-------+ + + + | POTASSIUM, | 4.3 | mmol/L | [facility] | | | PLASMA | | | LABORATORY | | | (LAB) | | | - | | | | | | [facility] | | + +-------+ + + + | CHLORIDE, | 105 | mmol/L | [facility] | | | PLASMA | | | LABORATORY | | | (LAB) | | | - | | | | | | [facility] | | + +-------+ + + + | TOTAL CO2, | 27 | mmol/L | [facility] | | | PLASMA | | | LABORATORY | | | (LAB) | | | - | | | | | | [facility] | | + +-------+ + + + | ALT (SGPT) | 43 | U/L | [facility] | | | | | | LABORATORY | | | | | | - | | | | | | [facility] | | + +-------+ + + + + + | Specimen | + + | Blood - Blood | + + + +---------+ + + | Performing | Address | City/State/Zipcode | Phone Number | | Organization | | | | + +---------+ + + | [facility] | | | [phone] | | LABORATORY - | | | | | [facility] | | | | + +---------+ + + CBC, WITH DIFFERENTIAL (08/09/2014) + +-------+ + + + | Component | Value | Ref Range | Performed | Pathologist | | | | | At | Signature | + +-------+ + + + | WHITE CELL | 5.5 | K/cu mm | [facility] | | | COUNT | | | LABORATORY | | | | | | - | | | | | | [facility] | | + +-------+ + + + | RED CELL | 3.93 | M/cu mm | [facility] | | | COUNT | | | LABORATORY | | | | | | - | | | | | | [facility] | | + +-------+ + + + | HEMOGLOBIN | 12.6 | 12.1999 - 15 | [facility] | | | | | g/dL | LABORATORY | | | | | | - | | | | | | [facility] | | + +-------+ + + + | HEMATOCRIT | 37.3 | % | [facility] | | | | | | LABORATORY | | | | | | - | | | | | | [facility] | | + +-------+ + + + | MCV | 95.1 | fL | [facility] | | | | | | LABORATORY | | | | | | - | | | | | | [facility] | | + +-------+ + + + | MCH | 32 | pg | [facility] | | | | | | LABORATORY | | | | | | - | | | | | | [facility] | | + +-------+ + + + | MCHC | 34 | g/dL | [facility] | | | | | | LABORATORY | | | | | | - | | | | | | [facility] | | + +-------+ + + + | PLATELET | 205 | K/cu mm | [facility] | | | COUNT | | | LABORATORY | | | | | | - | | | | | | [facility] | | + +-------+ + + + | NEUTROPHIL | 69.1 | % | [facility] | | | % | | | LABORATORY | | | | | | - | | | | | | [facility] | | + +-------+ + + + | LYMPHOCYTE | 22 | % | [facility] | | | % | | | LABORATORY | | | | | | - | | | | | | [facility] | | + +-------+ + + + | MONOCYTE % | 3 | % | [facility] | | | | | | LABORATORY | | | | | | - | | | | | | [facility] | | + +-------+ + + + | EOS % | 5.1 | % | [facility] | | | | | | LABORATORY | | | | | | - | | | | | | [facility] | | + +-------+ + + + | BASO % | 0.8 | % | [facility] | | | | | | LABORATORY | | | | | | - | | | | | | [facility] | | + +-------+ + + + + + | Specimen | + + | Blood - Blood | + + + +---------+ + + | Performing | Address | City/State/Zipcode | Phone Number | | Organization | | | | + +---------+ + + | [facility] | | | [phone] | | LABORATORY - | | | | | [facility] | | | | + +---------+ + + documented in this encounter Visit Diagnoses + + | Diagnosis | + + | Bullous pemphigoid - Primary Pemphigoid | + + | 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
--- OUTSIDE RECORDS SUMMARY | ~2018-07-19 | XMS | Encounter Summary ---
Demographics + + + | Address | [address] | | | [place] [address] | + + + | Home Phone | | + + + | Preferred Language | Unknown | + + + | Marital Status | | + + + | Bahai Affiliation | [id number] | + + + | Race | Unknown | + + + | Ethnic Group | Unknown | + + + Author + + + | Author | [facility] | | | and [place] | + + + | Organization | [facility] | | | and [place] | [...] Team Providers + +------+ + | Care Dialysis Biomed Technician Name | Role | Phone | + +------+ + | Kaleb Ryder DO | PCP | | + +------+ + Reason for Visit +---------+ + | Reason | Comments | +---------+ + | Results | | +---------+ + Encounter Details +--------+ + + + + | Date | Type | Department | Care Team | Description | +--------+ + + + + | 04/28/ | Telephone | [facility] | Vern Valdivia MD | Results | | 2019 | | CARDIOLOGY [address] | | | | | | [place], | | | | | | [place] [address] | | | | | | [phone] | | | +--------+ + + + [...]
--- OUTSIDE RECORDS SUMMARY | ~2018-07-19 | XMS | Encounter Summary ---
Demographics + + + | Address | [address] | | | [place] [address] | + + + | Home Phone | | + + + | Preferred Language | Unknown | + + + | Marital Status | Single | + + + | Mandaeism Affiliation | PEN | + + + | Race | White | + + + | Ethnic Group | Not or | + + + Author + + + | Author | [facility] | + + + | Organization | [facility] | + + + | Address | Unknown | + + + | Phone | Unavailable | + + + Support + + + + + | Name | Relationship | Address | Phone | + + + + + | Kenton Arshad | [address] | [address] | | | | | [place] | | | | | [address] | | + + + + + Care Team Providers + +------+ + | Care Animal Biologist Name | Role | Phone | + [...] at [facility] [address] | [address] | | | | | Floor [address] | [place], [place] | | | | | Ave Mail Code: | [address] | | | | | [facility] | [phone] | | | | | Health and Healing, | | | | | | 16 floor | | | | | | [place], [place] | | | | | | [address] | | | | | | [phone] | | | +--------+ + + + [...]
--- OUTSIDE RECORDS SUMMARY | ~2018-07-19 | XMS | Encounter Summary ---
Demographics + + + | Address | [address] | | | [place] [address] | + + + | Home Phone | | + + + | Preferred Language | Unknown | + + + | Marital Status | Single | + + + | Zoroastrian Affiliation | PEN | + + + | Race | White | + + + | Ethnic Group | Not or | + + + Author + + + | Author | [facility] | + + + | Organization | [facility] | + + + | Address | Unknown | + + + | Phone | Unavailable | + + + Support + + + + + | Name | Relationship | Address | Phone | + + + + + | Kenton Arshad | [address] | [address] | | | | | [place] | | | | | [address] | | + + + + + Care Team Providers + +------+ + | Care Cloth Laminating Supervisor Name | Role | Phone | + [...] | +--------+ + + + + | 05/26/ | Telephone | Dermatology | Radha Barillas MD | Test Results | | 2016 | | Medical at [facility] [address] | [address] | | | | | Floor [address] | [place], [place] | | | | | Ave Mail Code: | [address] | | | | | [facility] | [phone] | | | | | Health and Healing, | | | | | | 16th floor | | | | | | [place], [place] | | | | | | [address] | | | | | | [phone] | | | +--------+ + + + [...]
--- OUTSIDE RECORDS SUMMARY | ~2018-07-19 | XMS | Encounter Summary ---
Demographics + + + | Address | [address] | | | [place] [address] | + + + | Home Phone | | + + + | Preferred Language | Unknown | + + + | Marital Status | | + + + | Jew Affiliation | 1028 | + + + | Race | Unknown | + + + | Ethnic Group | Unknown | + + + Author + + + | Author | [facility] | | | and [place] | + + + | Organization | [facility] | | | and Tomana [...] Team Providers + +------+ + | Care Software Applications Developer Name | Role | Phone | + +------+ + | Kaleb Ryder DO | PCP | | + +------+ + Encounter Details +--------+ + + + + | Date | Type | Department | Care Team | Description | +--------+ + + + + | 07/14/ | Abstract | [facility] | Vern Valdivia MD | | | 2018 | | CARDIOLOGY [address] | | | | | | [address], | | | | | | [place] [address] | | | | | | [phone] | | | +--------+ + + + [...] | + +--------+ + + + | EXTERNAL LAB: BUN | Routin | 07/08/2018 | | Results for this | | | e | | | procedure are in the | | | | | | results section. | + +--------+ + + + | EXTERNAL LAB: | Routin | 07/08/2018 | | Results for this | | GLUCOSE | e | | | procedure are in the | | | | | | results section. | + +--------+ + + + | EXTERNAL LAB: MARTHA | Routin | 07/08/2018 | | Results for this | | | e | | | procedure are in the | | | | | | results section. | + +--------+ + + + | EXTERNAL LAB: CRISTOPHER | Routin | 07/08/2018 | | Results for this | | | e | | | procedure are in the | | | | | | results section. | + +--------+ + + + | EXTERNAL LAB: | Routin | 07/08/2018 | | Results for this | | ALKALINE PHOSPHATASE | e | | | procedure are in the | | | | | | results section. | + +--------+ + + + | EXTERNAL LAB: | Routin | 07/08/2018 | | Results for this | | BILIRUBIN, TOTAL | e | | | procedure are in the | | | | | | results section. | + +--------+ + + + | EXTERNAL LAB: | Routin | 07/08/2018 | | Results for this | | ALBUMIN | e | | | procedure are in the | | | | | | results section. | + +--------+ + + + | EXTERNAL LAB: | Routin | 07/08/2018 | | Results for this | | PROTEIN, TOTAL | e | | | procedure are in the | | | | | | results section. | + +--------+ + + + | EXTERNAL LAB: | Routin | 07/08/2018 | | Results for this | | CALCIUM | e | | | procedure are in the | | | | | | results section. | + +--------+ + + + | EXTERNAL LAB: CARBON | Routin | 07/08/2018 | | Results for this | | DIOXIDE | e | | | procedure are in the | | | | | | results section. | + +--------+ + + + | EXTERNAL LAB: | Routin | 07/08/2018 | | Results for this | | CHLORIDE | e | | | procedure are in the | | | | | | results section. | + +--------+ + + + | EXTERNAL LAB: | Routin | 07/08/2018 | | Results for this | | POTASSIUM | e | | | procedure are in the | | | | | | results section. | + +--------+ + + + | EXTERNAL LAB: SODIUM | Routin | 07/08/2018 | | Results for this | | | e | | | procedure are in the | | | | | | results section. | + +--------+ + + + | EXTERNAL LAB: SHO | Routin | 07/08/2018 | | Results for this | | | e | | | procedure are in the | | | | | | results section. | + +--------+ + + + | EXTERNAL LAB: ADRIANA | Routin | 07/08/2018 | | Results for this | | | e | | | procedure are in the | | | | | | results section. | + +--------+ + + + | EXTERNAL LAB: | Routin | 07/08/2018 | | Results for this | | TRIGLYCERIDES | e | | | procedure are in the | | | | | | results section. | + +--------+ + + + | EXTERNAL LAB: | Routin | 07/08/2018 | | Results for this | | CHOLESTEROL, HDL | e | | | procedure are in the | | | | | | results section. | + +--------+ + + + | EXTERNAL LAB: | Routin | 07/08/2018 | | Results for this | | CHOLESTEROL, TOTAL | e | | | procedure are in the | | | | | | results section. | + +--------+ + + + | EXTERNAL LAB: | Routin | 07/08/2018 | | Results for this | | CHOLESTEROL, LDL | e | | | procedure are in the | | | | | | results section. | + +--------+ + + + | EXTERNAL LAB: EGFR | Routin | 07/08/2018 | | Results for this | | | e | | | procedure are in the | | | | | | results section. | + +--------+ + + + | EXTERNAL LAB: | Routin | 07/08/2018 | | Results for this | | CREATININE | e | | | procedure are in the | | | | | | results section. | + +--------+ + + + | LIPID PANEL | Routin | 07/08/2018 | | Results for this | | | e | | | procedure are in the | | | | | | results section. | + +--------+ + + + | HEMOGLOBIN A1C | Routin | 07/08/2018 | | Results for this | | | e | | | procedure are in the | | | | | | results section. | + +--------+ + + + documented in this encounter Results Lipid Panel (07/08/2018) + +-------+ + + + | Component | Value | Ref Range | Performed | Pathologist | | | | | At | Signature | + +-------+ + + + | BUN/Creatin | 21.0 | 6.0 - 28.6 | | | | ine Ratio | | | | | + +-------+ + + + | Globulin | 3.1 | 1.8 - 3.5 | | | + +-------+ + + + | Albumin/Elida | 1.3 | 1.1 - 2.4 | | | | bulin Ratio | | | | | + +-------+ + + + | MCH, POC | 33 | 27 - 33 | | | + +-------+ + + + | MCHC, POC | 34 | 30 - 36 | | | + +-------+ + + + | % Basophils | 1.3 | 0.0 - 2.0 % | | | + +-------+ + + + + + | Specimen | + + | Blood | + + Hemoglobin A1C (07/08/2018) + +-------+ + + + | Component | Value | Ref Range | Performed | Pathologist | | | | | At | Signature | + +-------+ + + + | Hemoglobin | 12.3 | % | | | | A1c | | | | | + +-------+ + + + + + | Specimen | + + | Blood | + + External Lab: BUN (07/08/2018) + +-------+ + + + | Component | Value | Ref Range | Performed | Pathologist | | | | | At | Signature | + +-------+ + + + | BUN, | 21 | 6 - 23 | | | | External | | | | | + +-------+ + + + External Lab: Glucose (07/08/2018) + +---------+ + + + | Component | Value | Ref Range | Performed | Pathologist | | | | | At | Signature | + +---------+ + + + | Glucose, | 244 (A) | 70 - 100 | | | | External | | | | | + +---------+ + + + External Lab: ALT (07/08/2018) + +-------+ + + + | Component | Value | Ref Range | Performed | Pathologist | | | | | At | Signature | + +-------+ + + + | ALT, | 28 | 7 - 52 | | | | External | | | | | + +-------+ + + + External Lab: AST (07/08/2018) + +-------+ + + + | Component | Value | Ref Range | Performed | Pathologist | | | | | At | Signature | + +-------+ + + + | AST, | 20 | 13 - 39 | | | | External | | | | | + +-------+ + + + External Lab: Alkaline Phosphatase (07/08/2018) + +-------+ + + + | Component | Value | Ref Range | Performed | Pathologist | | | | | At | Signature | + +-------+ + + + | ALP, | 71 | 31 - 130 | | | | External | | | | | + +-------+ + + + External Lab: Bilirubin, Total (07/08/2018) + +-------+ + + + | Component | Value | Ref Range | Performed | Pathologist | | | | | At | Signature | + +-------+ + + + | Bilirubin, | 0.7 | 0 - 1.2 | | | | Total, | | | | | | External | | | | | + +-------+ + + + External Lab: Albumin (07/08/2018) + +-------+ + + + | Component | Value | Ref Range | Performed | Pathologist | | | | | At | Signature | + +-------+ + + + | Albumin, | 4.0 | 3.5 - 5 | | | | External | | | | | + +-------+ + + + External Lab: Protein, Total (07/08/2018) + +-------+ + + + | Component | Value | Ref Range | Performed | Pathologist | | | | | At | Signature | + +-------+ + + + | Protein, | 7.1 | 6 - 8.3 | | | | Total, | | | | | | External | | | | | + +-------+ + + + External Lab: Calcium (07/08/2018) + + + + + + | Component | Value | Ref Range | Performed | Pathologist | | | | | At | Signature | + + + + + + | Calcium, | 11.1 (A) | 8.5 - 10.3 | | | | External | | | | | + + + + + + External Lab: Carbon Dioxide (07/08/2018) + +-------+ + + + | Component | Value | Ref Range | Performed | Pathologist | | | | | At | Signature | + +-------+ + + + | Carbon | 26 | 19 - 31 | | | | Dioxide, | | | | | | External | | | | | + +-------+ + + + External Lab: Chloride (07/08/2018) + +-------+ + + + | Component | Value | Ref Range | Performed | Pathologist | | | | | At | Signature | + +-------+ + + + | Chloride, | 103 | 95 - 112 | | | | External | | | | | + +-------+ + + + External Lab: Potassium (07/08/2018) + +-------+ + + + | Component | Value | Ref Range | Performed | Pathologist | | | | | At | Signature | + +-------+ + + + | Potassium, | 4.3 | 3.6 - 5.1 | | | | External | | | | | + +-------+ + + + External Lab: Sodium (07/08/2018) + +-------+ + + + | Component | Value | Ref Range | Performed | Pathologist | | | | | At | Signature | + +-------+ + + + | Sodium, | 142 | 132 - 143 | | | | External | | | | | + +-------+ + + + External Lab: CBC (07/08/2018) + +-------+ + + + | Component | Value | Ref Range | Performed | Pathologist | | | | | At | Signature | + +-------+ + + + | WBC, | 7.9 | 4.5 - 11 | | | | External | | | | | + +-------+ + + + | HGB, | 14.4 | 12 - 16 | | | | External | | | | | + +-------+ + + + | HCT, | 42.2 | | | | | External | | | | | + +-------+ + + + | PLT, | 217 | 140 - 440 | | | | External | | | | | + +-------+ + + + | Neutrophils | 52.0 | 39 - 80 | | | | %, | | | | | | External | | | | | + +-------+ + + + | Lymphocytes | 35.2 | 24 - 44 | | | | %, | | | | | | External | | | | | + +-------+ + + + | Monocytes | 7.4 | 0 - 12 | | | | %, External | | | | | + +-------+ + + + | Eosinophils | 4.1 | 0 - 6 | | | | %, | | | | | | External | | | | | + +-------+ + + + | RBC, | 4.42 | 3.8 - 5.1 | | | | External | | | | | + +-------+ + + + | MCV, | 96 | 81 - 99 | | | | External | | | | | + +-------+ + + + | RDW, | 13.4 | 10.5 - 15 | | | | External | | | | | + +-------+ + + + External Lab: ADRIANA (07/08/2018) + +-------+ + + + | Component | Value | Ref Range | Performed | Pathologist | | | | | At | Signature | + +-------+ + + + | TSH, | 2.75 | 0.27 - 4.2 | | | | External | | | | | + +-------+ + + + + + | Specimen | + + | Blood | + + External Lab: Triglycerides (07/08/2018) + +---------+ + + + | Component | Value | Ref Range | Performed | Pathologist | | | | | At | Signature | + +---------+ + + + | Triglycerid | 218 (A) | 30 - 150 | | | | es, | | | | | | External | | | | | + +---------+ + + + + + | Specimen | + + | Blood | + + External Lab: Cholesterol, HDL (07/08/2018) + +-------+ + + + | Component | Value | Ref Range | Performed | Pathologist | | | | | At | Signature | + +-------+ + + + | HDL | 30.4 | mg/dl | | | | Cholesterol | | | | | | , External | | | | | + +-------+ + + + + + | Specimen | + + | Blood | + + External Lab: Cholesterol, Total (07/08/2018) + +-------+ + + + | Component | Value | Ref Range | Performed | Pathologist | | | | | At | Signature | + +-------+ + + + | Cholesterol | 151 | mg/dl | | | | , Total, | | | | | | External | | | | | + +-------+ + + + + + | Specimen | + + | Blood | + + External Lab: Cholesterol, LDL (07/08/2018) + +-------+ + + + | Component | Value | Ref Range | Performed | Pathologist | | | | | At | Signature | + +-------+ + + + | LDL | 77 | | | | | Cholesterol | | | | | | , External | | | | | + +-------+ + + + + + | Specimen | + + | Blood | + + External Lab: eGFR (07/08/2018) + +-------+ + + + | Component | Value | Ref Range | Performed | Pathologist | | | | | At | Signature | + +-------+ + + + | eGFR, | 54 | | | | | External | | | | | + +-------+ + + + + + | Specimen | + + | Blood | + + External Lab: Creatinine (07/08/2018) + +-------+ + + + | Component | Value | Ref Range | Performed | Pathologist | | | | | At | Signature | + +-------+ + + + | Creatinine, | 1.00 | 0.7 - 1.18 | | | | External | | | | | + +-------+ + + + + + | Specimen | + + | Blood | + + documented in this encounter Visit Diagnoses Not on filedocumented in this encounter"
--- OUTSIDE RECORDS SUMMARY | ~2018-07-19 | XMS | Encounter Summary ---
Demographics + + + | Address | [address] | | | [place] [address] | + + + | Home Phone | | + + + | Preferred Language | Unknown | + + + | Marital Status | Single | + + + | Muslim Affiliation | PEN | + + + | Race | White | + + + | Ethnic Group | Not or | + + + Author + + + | Author | [facility] | + + + | Organization | [facility] | + + + | Address | Unknown | + + + | Phone | Unavailable | + + + Support + + + + + | Name | Relationship | Address | Phone | + + + + + | Kenton Arshad | [address] | [address] | | | | | [place] | | | | | [address] | | + + + + + Care Team Providers + +------+ + | Care Line Appliance Assembler Name | Role | Phone | + +------+ + | Benmelinda Kaleb | PCP | | + +------+ + Reason for Visit + + + | Reason | Comments | + + + | Examination Of Skin | Bullous Pemphigoid | + + + Encounter Details +--------+---------+ + + + | Date | Type | Department | Care Team | Description | +--------+---------+ + + + | 05/21/ | Office | Dermatology | Radha Barillas MD | Bullous pemphigoid | | 2015 | Visit | Medical at [facility] 16 | [address] | (Primary Dx); | | | | Floor [address] | [place], [place] | Encounter for | | | | Ave Mail Code: | [address] | long-term (current) | | | | [facility] for | [phone] | use of other | | | | Health and Healing, | | medications | | | | 16 floor | | | | | | [place], [place] | | | | | | [address] | | | | | | [phone] | | | +--------+---------+ + + + [...] +---------+ + + | Blood Pressure | 140/86 | 05/21/2014 1:39 PM | | | | | PDT | | + +---------+ + + | Pulse | 60 | 05/21/2014 1:39 PM | | | | | PDT | | + +---------+ + + | Temperature | - | - | | + +---------+ + + | Respiratory Rate | 16 | 05/21/2014 1:39 PM | | | | | PDT [...] in this encounter Patient Instructions Patient Instructions Ericka Wilson - 05/21/2014 1:48 PM PDT Instructions: - We will work on getting you rituximab - start minocycline 100mg twice daily - continue methotrexate 15mg weekly with folic acid daily - stop IVIG SUNSCREEN APPLICATION AND UV PROTECTION Exposure to ultraviolet radiation is the leading cause of premature aging, and skin cance rs including melanoma. The [place] [employer] (AAD) recommends you wear a wide-brimmed hat, sun gla sses and sun protective clothing. If you must be in the sun, it is recommended to use a Bro ad spectrum sunscreen (blocking both UVA and UVB) with a sun protection factor (SPF) of 30+ (even on cloudy days) and reapply every two hours, or after swimming or heavy perspiration. Sunscreens should be applied generously and evenly. One fluid ounce (or the equivalent o f a full shot glass) is the approximate amount of sunscreen required for each person each ti me sunscreen is applied. Sunscreens have an expiration date and once that date is reached, they may lose effective ness and should be discarded. Sunscreen is also important for blocking reflected UVR (Ultraviolet Radiation). Sand, con crete, snow, water, and other surfaces reflect UVR which has the same effect to your skin as direct sunlight. THE "ABCDE" RULE AND MELANOMA DETECTION Asymmetry - compare one half of the growth to the other half to determine if the halves are equal in size. Border - If the mole's border is irregular, notched, scalloped, or indistinct, it should be checked by a doctor. Color - Variation of color (e.g., more than one color or shade) within a mole is a suspicio us finding. Diameter - Any mole that has a diameter larger than a pencil's eraser should be checked by a doctor. Evolving - If a mole is changing in size, shape, color, elevation, surface texture or becom es itchy or painful, it should be checked by a doctor. Additional sunscreen and melanoma information is available at the following websites: http://www.[facility]/xd/health/services/dermatology/for-patients/health_info.cfm - [facility] Derm atology http://www.aad.org/public/sun/smart.html - AAD Website documented in this encounter Progress Notes Radha Barillas MD - 05/21/2014 5:38 PM PDTATTENDING PHYSICIAN ATTESTATION I saw and examined the patient and discussed the case with the Fellow/Resident. I agree wi th their findings and plan as written. 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 Consider PNP, b ut lips not involved and denies "B" symptoms other than weight loss, which she reports is 2/ 2 not being able to eat 2/2 pain. Biopsy of oral mucosa for DIF. If also consistent with B P, will proceed with rituxan. Continue methotrexate until then. Mild increase in transamin ases, so hold dose. Start minocycline for possible extra anti-inflammatory help. I was present for shave biopsy of the mucosa. Follow up with depend on results and if we c an get rituxan covered. 42 minutes were spent with the patient, greater than half of which was in counseling re: ri sk and benefits of additional therapeutic options. Radha aBrillas MD Wire Splicer of Dermatology [facility] oLuli frederick MD - 05/21/2014 1:47 PM PDT DERMATOLOGY NEW PATIENT VISIT Primary Care Provider: Kaleb Ryder DO Referring Provider: No Referring Provider Per Patient CHIEF COMPLAINT: bullous pemphigoid HISTORY OF PRESENT ILLNESS: Matilda Arshad is a 68 y.o. female who presents with bullous pemphigoid. Symptom onset /first noted: 2 years ago (May 2013). Started initially on her lower legs, chest and back . Biopsy was done of R tibia and H&E and DIF was consistent with bullous pemphigoid. States that eventually she developed lesion in her mouth and nose. This started approximately Fall 2013 after a dental cleaning. She was on prednisone in the very beginning of her course 2 ye ars ago. Doesn't remember dosing. Denies being clear from the prednisone. Was transitioned t o MTX. Currently on 15mg of MTX weekly with folic acid daily. It has been at this dose for m any months. Has not been higher than this. States that she was still breaking out despite th e MTX and therefore she was started on IVIG Dec 2013. Has had 3 doses thus far. States that her skin has improved but her mouth and throat has continued to breakout. Uses fluocinonide ointment as needed on her skin. Has tried lidocaine for her mouth ulcers, doesn't help very much. She denies any redness of her eyes, gritty feeling or erosions. Does get nose bleeds a nd ulcers in her nose. Does have dysphagia and odynophagia. Has lost 30 lbs over the last 2 years. Has hx of one genital erosion. Denies nausea, vomitting, GI pain, fever, chills, melissa ise or other systemic symptoms. Also notes a hx of Melanoma on her L medial ankle when she was 16. She is unsure of the dep th but states that it was excised. States it started as a bleeding papule. Denies any other atypical nevi or skin cancers. Occasionally wears sunscreens. Does examine her skin periodic ally. Bravo skin type II. The patient's dermatology intake form was reviewed, signed, and dated. Her relevant PMH, F H, and SH includes: PAST MEDICAL HISTORY: - diabetes mellitus - hypertension - hypothyroidism - h/o MRSA neck abscess - melanoma age 16 unknown depth - glaucoma - vit D deficiency - primary hyperparathyroidism - last DEXA T score -1.5 FAMILY HISTORY: No history of melanoma or non-melanoma skin cancer. SOCIAL HISTORY: EtOH: has no history of alcohol use. Tobacco: has never smoked MEDICATIONS: Current Medication List Name Sig ATENOLOL [...] FOLIC ACID 1 MG TABLET Take 1 mg by mouth once daily. FOLIC ACID 1 MG TABLET Take 1 tablet by mouth once daily. INSULIN GLARGINE 100 UNIT/ML (3 ML) SUBCUTANEOUS PEN Inject 42 Units under the skin (SUBC) once daily at bedtime. LEVOTHYROXINE 88 MCG TABLET Take 88 mcg by mouth once daily. METHOTREXATE SODIUM 2.5 MG TABLET 4 on Mondays, and 2 on Tuesdays. MINOCYCLINE 100 MG CAPSULE Take 1 capsule by mouth every twelve hours. RANITIDINE 300 MG TABLET Take 300 mg by mouth two times daily. SUCRALFATE 100 MG/ML ORAL SUSPENSION Take by mouth once daily. TIMOLOL MALEATE 0.5 % EYE DROPS 1 drop two times daily. ALLERGIES: No Known Allergies REVIEW OF SYSTEMS: Please see HPI and PMH. In addition, she denies fever, chills, sweats, weight loss or loss of appetite, and has no further skin complaints. PHYSICAL EXAMINATION: BP 140/86 | Pulse 60 | RR 16 Well-developed, well-nourished female in no acute distress. Awake, alert and oriented. Pl easant and cooperative mood. A complete skin examination was performed including the scalp/hair, head/face, eyelids/conj unctivae, lips, teeth, gums, oropharynx, neck, chest, back, abdomen, buttocks, bilateral arm s and legs, bilateral hands and feet, and nails. Findings were within normal limits except for the following: - occipital scalp with eroded erythematous papules - nasal bridge with ill defined erythematous thin plaque with some superficial erosions - R nasal mucosa with erosion - eyes clear - upper and lower gingiva with moderate-severe erythema and scattered erosions/ulcerations, R>L buccal mucosa with moderate erythema and ulcerations, tongue clear - upper back, chest and arms with healing pink papules (areas of prior lesions), no intact bullae - R and L tibia with healing pink papules - R medial ankle with well healed scar with no nodularity or re-pigmentation - trunk and extremities with multiple well circumscribed uniformly pigmented <6mm macules a nd thin papules CBC and CMP reviewed under media tab 02/22 - CBC normal, CMP with AST 59 and ALT 71 otherwis e within normal limits ASSESSMENT AND PLAN: 1. Biopsy proven bullous pemphigoid. Her cutaneous skin are relatively well controlled, h owever, still has severe disease in her nasal and oral mucosa. Currently on 15mg weekly of M TX and IVIG (3 doses). Given her skin has responded but not her mucosal lesions would like t o ensure that her mouth is also bullous pemphigoid and not cicatricial pemphigoid or erosive lichen planus and therefore a biopsy for DIF will be obtained. Given her significant weight loss due to dysphagia/odynophagia would like to get her into better control and therefore d iscussed various tx options including increasing her MTX to 25mg weekly, starting MCN, start ing dapsone, or starting rituximab. - stop IVIG given she has not seen very much improvement especially in her mouth - will do biopsy of R buccal mucosa for DIF - if bx positive for BP, we will plan to start rituximab, will work on getting her this ([facility] - where she is getting her IVIG, her PCP is Kaleb Ryder DO Internal Med pending sale to [facility] #[id number], [address] [place] [address]) - start minocycline 100mg BID - continue methotrexate 15mg qweekly with folic acid daily Procedure Note - Biopsy by Shave Technique Prior to beginning the procedure the team paused to verify the patient's identity, as well as the procedure to be performed and the biopsy site. All equipment required was ready and available. The patient was positioned appropriately. After PARQ addressed and scar factors discussed, the area was prepped with an isopropyl alcohol pad. Anesthesia was obtained by griffiths bcutaneous infusion of buffered 1% lidocaine with 1:100,000 epinephrine. A shave biopsy was performed and hemostasis obtained with 25% aluminum chloride and pressure. Blood loss was minimal. The site was dressed with white petrolatum jelly and a bandage. Verbal and written wound care instructions were given to the patient. Patient reports no pain after the proce dure Discussed RBA of minocycline. The most common side effects are dizziness, headache, vertigo , GI upset and hyperpigmentation (of skin, mucosa, nails and/or teeth). Deposition of tetrac yclines in the teeth and bones occurs in children, causing discoloration and hypoplasia of t he teeth (deciduous and permanent) and occasionally temporarily stunting growth. Although ra re, minocycline can cause allergic reactions, including DRESS that often includes pneumoniti s as well as hepatitis. Discussed the RBA of methotrexate. The most common side effects are leukopenia, nausea, vom itting, elevated liver enzymes, photosensitivty, and oral ulcers. These are most often rever sible with discontinuation of the drug. Explained the most important side effects are pancy topenia, hepatotoxicity and infections. Pancytopenia typically develops early in treatment a nd is unpredictable. The risk for hepatotoxicity increases with the cumulative dose, previou s or current excessive alcohol intake, persistent abnormal liver chemistries, a history of l iver disease (including hepatitis B and C viral infections), family history of inheritable l iver disease, diabetes mellitus, obesity, and a history of significant exposure to hepatotox ic drugs or chemicals. Less common side effects include pneumonitis, pulmonary fibrosis, acc elerated rheumatoid (cutaneous) nodulosis and reversible lymphoproliferative disorders.The i mportance of interval bloodwork while on this medication was addressed. 2. Hx of melanoma, unknown depth -- NER --reviewed ABCDEs of melanoma --Encouraged routine use of sunscreen and skin-protective clothing --Recommend monthly self-examination when possible --RTC for any new or changing lesions RETURN VISIT: Will call her with bx results, plan to start rituximab and will f/u with her after her [facility] Department of Dermatology [facility] 05/21/2014 documented in this e ncounter Plan of Treatment Not on filedocumented as of this encounter Procedures + +--------+ + + + | Procedure Name | Priori | Date/Time | Associated Diagnosis | Comments | | | ty | | | | + +--------+ + + + | LA BIOPSY OF SKIN | Routin | 05/21/2014 | Bullous pemphigoid | | | LESION | e | 5:43 PM | | | | | | PDT | | | + +--------+ + + + | IMMUNOFLUORESCENCE | Routin | 05/21/2014 | Bullous pemphigoid | Results for this | | STUDY | e | | | procedure are in the | | | | | | results section. | + +--------+ + + + documented in this encounter Results IMMUNOFLUORESCENCE STUDY (05/21/2014) + + + + + + | Component | Value | Ref Range | Performed | Pathologist | | | | | At | Signature | + + + + + + | IMMUNOFLUOR | SOURCE OF SPECIMEN:A Rt. | | [facility] | | | ESCENCE | buccal mucosa, scissor | | DERMATOPATH | | | STUDY | biopsy DIF | | OLOGY | | | | CLINICAL INFORMATION:On | | | | | | May 21, 2014, a snip | | | | | | biopsy was taken from | | | | | | the right buccal mucosa | | | | | | fordirect | | | | | | immunofluorescence | | | | | | studies from a patient | | | | | | with bullous | | | | | | pemphigoidwho now has | | | | | | ulcerations and their | | | | | | gingiva and buccal | | | | | | mucosa to R/O | | | | | | BullousPemphigoid vs | | | | | | Cicatricial Pemphigoid | | | | | | or Lichen | | | | | | Planus. TISSUE | | | | | | PROCESSING:On May 21, | | | | | | 2014, a 2 x 1mm red | | | | | | fragment of tissue was | | | | | | received in | | | | | | directimmunofluorescence | | | | | | holding | | | | | | solution. After | | | | | | washing, the tissue was | | | | | | frozenin OCT, and | | | | | | cryosectioned onto five | | | | | | separate slides. The | | | | | | sections werethen | | | | | | stained with fluorescein | | | | | | isothiocyanate | | | | | | conjugated anti-human | | | | | | IgG,IgA, IgM, C3, and | | | | | | fibrinogen, | | | | | | respectively. | | | | | | FINDINGS:There is | | | | | | moderately intense | | | | | | linear deposition of | | | | | | both IgG and C3 | | | | | | foundalong the basement | | | | | | membrane | | | | | | zone. Additionally, | | | | | | there is patchy | | | | | | lineardeposition of | | | | | | fibrinogen found at the | | | | | | basement membrane zone | | | | | | as well.There is no | | | | | | shaggy morphology to the | | | | | | deposition of | | | | | | fibrinogen. There is | | | | | | nospecific deposition of | | | | | | IgM or IgA identified | | | | | | in these | | | | | | sections. | | | | | | COMMENTS/DIAGNOSIS:The | | | | | | above findings are | | | | | | consistent with a | | | | | | diagnosis of | | | | | | pemphigoid. It isnot | | | | | | possible to separate | | | | | | cicatricial vs bullous | | | | | | pemphigoid | | | | | | onimmunopathologic | | | | | | specimens. There are | | | | | | no findings to support a | | | | | | diagnosisof lichen | | | | | | planus in these | | | | | | sections. | | | | | | Testing was performed | | | | | | with an appropriate | | | | | | positive and negative | | | | | | control foreach | | | | | | imunoreactant.[facility]:[id number] | | | | | | 015 My | | | | | | electronic signature | | | | | | indicates that I have | | | | | | personally reviewed | | | | | | alldiagnostic slides, | | | | | | the gross and/or | | | | | | microscopic portion of | | | | | | thisreport and | | | | | | formulated the final | | | | | | diagnosis. | | | | | | Rendering | | | | | | Diagnostician: Mariana | | | | | | H Juan Alberto | | | | | | Fawadi | | | | | | rosemarie Signed 05/28/2014 | | | | | | 12:59PM | | | | + + + + + + + + | Specimen | + + | Biopsy | + + + + + + + | Performing | Address | City/State/Zipcode | Phone Number | | Organization | | | | + + + + + | [facility] | Mailcode [facility], [address] | [place] [address] | | | DERMATOPATHOLOGY | [address] | | | + + + + + documented in this encounter Visit Diagnoses + + | Diagnosis | + + | Bullous pemphigoid - Primary Pemphigoid | + + | Encounter for long-term (current) use of other medications | + + documented in this encounter
--- OUTSIDE RECORDS SUMMARY | ~2018-07-19 | XMS | Encounter Summary ---
Demographics + + + | Address | [address] | | | [place] [address] | + + + | Home Phone | | + + + | Preferred Language | Unknown | + + + | Marital Status | Single | + + + | Cheondoism Affiliation | PEN | + + + | Race | White | + + + | Ethnic Group | Not or | + + + Author + + + | Author | [facility] | + + + | Organization | [facility] | + + + | Address | Unknown | + + + | Phone | Unavailable | + + + Support + + + + + | Name | Relationship | Address | Phone | + + + + + | Kenton Arshad | [address] | [address] | | | | | [place] | | | | | [address] | | + + + + + Care Team Providers + +------+ + | Care Application Software Developer Name | Role | Phone | [...] | +--------+ + + + + | 05/24/ | Telephone | Dermatology | Radha Barillas MD | Discussion | | 2014 | | Medical at [facility] 16 | [address] | | | | | Floor [address] | [place], [place] | | | | | Ave Mail Code: | [address] | | | | | [facility] | [phone] | | | | | Health and Healing, | | | | | | 16 floor | | | | | | [place], [place] | | | | | | [address] | | | | | | [phone] | | | +--------+ + + + [...]
--- OUTSIDE RECORDS SUMMARY | ~2018-07-19 | XMS | Encounter Summary ---
Demographics + + + | Address | [address] | | | [place] [address] | + + + | Home Phone | | + + + | Preferred Language | Unknown | + + + | Marital Status | Single | + + + | Baptist Affiliation | PEN | + + + [...] [place] | | | | | [address] | | + + + + + Care Team Providers + +------+ + | Care Senior Art Director Name | Role | Phone | [...] | 2016 | on | Medical at [facility] 16 | [address] | Request (rituxan) | | | | Floor [address] | [place], [place] | | | | | Ave Mail Code: | [address] | | | | | [facility] | [phone] | | | | | Health and Healing, | | | | | | 16 floor | | | | | | [place], [place] | | | | | | [address] | | | | | | [phone] | | | +--------+ + + + [...]
--- OUTSIDE RECORDS SUMMARY | ~2018-07-19 | XMS | Encounter Summary ---
Demographics + + + | Address | [address] | | | [place] [address] | + + + | Home Phone | | + + + | Preferred Language | Unknown | + + + | Marital Status | Single | + + + | Denominational Affiliation | PEN | + + + [...] | + + + + + | Kenotn Arshad | [address] | [address] | | | | | [place] | | | | | [address] | | + + + + + Care Team Providers + +------+ + | Care Magnetic Grinder Operator Name | Role | Phone | [...] | 2016 | Visit | Medical at [facility] 16th | [address] | (Primary Dx); | | | | Floor [address] | [place], [place] | Medication | | | | Ave Mail Code: | [address] | monitoring | | | | [facility] Center for | [phone] | encounter; | | | | Health and Healing, | | Lichenification and | | | | 16th floor | | 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 We will test your enzyme level [...] by Ericka Wilson. Radha Barillas MD MSCE Social Work Instructor of Dermatology [facility] [email or web address] Ericka - 0 08/16/2015 1:44 PM PDT I, Ericka Wilson ([facility]), am functioning as a scribe for Radha Barillas M.D., Professor, [employer] of Dermatology. DERMATOLOGY FOLLOW UP PATIENT VISIT Last Appointment in [facility] was 05/24/2015 with Radha Barillas MD. Dx/Rx: [...] that was previously treated with LN2 at [facility] last office. She would like to [...] HISTORY: First grandchild born spring 2014 [place] [facility] [place] [facility] and enjoys the annual round up MEDICATIONS: [...] needed Ericka Wilson CMA Department of Dermatology [facility] 08/16/2015 documented i n this encounter Plan of Treatment Not on filedocumented as of this encounter Procedures + +--------+ + + + | Procedure Name | Priori | Date/Time | Associated Diagnosis | Comments | | | ty | | | | + +--------+ + + + | CA DESTRUC BENIGN | Routin | 08/18/2015 | Seborrheic | | | LESION, UP TO 14 | e | 9:04 AM | keratoses, inflamed | | | LESIONS | | PDT | Other specified | | | | | | conditions | | | | | | influencing health | | | | | | status(V49.89) | | + +--------+ + + + | CA INJ INTO SKIN | Routin | 08/16/2015 [...]
--- OUTSIDE RECORDS SUMMARY | ~2018-07-19 | XMS | Encounter Summary ---
Demographics + + + | Address | [address] | | | [place] [address] | + + + | Home Phone | | + + + | Preferred Language | Unknown | + + + | Marital Status | Single | + + + | Baptism Affiliation | PEN | + + + | Race | White | + + + | Ethnic Group | Not or | + + + Author + + + | Author | [facility] | + + + | Organization | [facility] | + + + | Address | Unknown | + + + | Phone | Unavailable | + + + Support + + + + + | Name | Relationship | Address | Phone | + + + + + | Kenton Arshad | [address] | [address] | | | | | [place] | | | | | [address] | | + + + + + Care Team Providers + +------+ + | Care Human Intelligence Name | Role | Phone | + +------+ + | Kaleb Ryder DO | PCP | | + +------+ + Reason for Visit + + + | Reason | Comments | + + + | BP - Bullous | | | pemphigoid | | + + + Encounter Details +--------+---------+ + + + | Date | Type | Department | Care Team | Description | +--------+---------+ + + + | 09/21/ | Office | Dermatology | Radha Barillas MD | Bullous pemphigoid | | 2015 | Visit | Medical at [facility] 16th | [address] | (Primary Dx); Mucous | | | | Floor [address] | [place], [place] | membrane | | | | Ave Mail Code: | [address] | pemphigoid; Weight | | | | [facility] | [phone] | loss; | | | | [facility], | | Gastroesophageal | | | | 16th floor | | reflux disease with | | | | [place], [place] | | esophagitis; | | | | [address] | | Dysphagia; Encounter | | | | [phone] | | for long-term | | | | | | (current) use of | | | | | | other medications | +--------+---------+ + + + Social History [...] Filed Vital Signs + + + + + | Vital Sign | Reading | Time Taken | Comments | + + + + + | Blood Pressure | 128/84 | 09/21/2014 1:02 PM | | | | | PDT | | + + + + + | Pulse | 76 | 09/21/2014 1:02 PM | | | | | PDT | | + + + + + | Temperature | - | - | | + + + + + | Respiratory Rate | 14 | 09/21/2014 1:02 PM | | | | | PDT | | + + + + + | Oxygen Saturation | - | - | | + + + + + | Inhaled Oxygen | - | - | | | Concentration | | | | + + + + + | Weight | 81.6 kg (180 lb) | 09/21/2014 1:02 PM | | | | | PDT | | + + + + + | Height | - | - | | + + + + + | Body Mass Index | - | - | | + + + + + documented in this encounter Patient Instructions Patient Instructions Radha Barillas MD - 09/21/2014 1:34 PM PDTPLAN: --continue methotrexate 20mg (4 on Wednesday, 4 on Wednesday) once per week. --continue folic acid 1mg once daily -- please use the dexamethasone swish and spit 2-3 times per day -- continue clotrimazole troches 3 times a day while using the dexamethasone to prevent yea st growth in the mouth --ok to use topical fluocinonide twice a day to spots on your body. -- we discussed a re-trial of rituxan. I will place these orders and I will contact you Return based on rituxan infusion 1 :36 PM PDT documented in this encounter Progress Notes Radha Barillas MD - 09/21/2014 6:53 PM PDTI have reviewed the above note and edited the h istory, ROS, exam and the assessment and plan in the above scribed note of my visit with thi s patient recorded by Giacomo Malagon. Radha Barillas MD MSCE [facility] Dacono eterson Malagon MA - 1:08 PM PDT I, Peterson Malagon CMA, am functioning as a scribe for Radha Barillas M.D. [facility], Department of Dermatology DERMATOLOGY FOLLOW UP PATIENT VISIT Last Office Visit in [facility] was on 08/17/14 at 4:00 pm with Radha Barillas MD. Dx/Rx: BP/MMP --methotrexate 20mg q week (increased to 20 mg weekly July of 2014) --fluocinonide ointment PRN --s/pminocycline 100mg BID (took from 05/2014 - July 2014, then d/c'd) --s/p IVIG x 3 doses. Skin improvement without MM improvement -- rituxan June of 2014 -- had hives on face and stopped. Given in home town. HISTORY OF PRESENT ILLNESS: Matilda Arshad is a 68 y.o. female who presents for follow up for bullous pemphigoid/mu cous membrane pemphigoid overlap. When she was last in she was started on a Prednisone taper , taking 4 tablets daily for 1 week, then 3 tablets daily for 1 week, then 2 tablets daily f or 1 week, then 1 tablet daily for 1 week. Finished last September 16. Feels this impr vasquez her condition slightly although it did not clear her completely and she did not have a lot of improvement in her mouth. In regards to her methotrexate, she only had enough to take 5 tablets this week vs the 8 she is prescribed to take, (4 tabs q Wed and 4 tabs q Tu). Co ntinues to take her folic acid Wed-Wed, skipping the days she takes methotrexate. Patient frank s tried dexamethasone and clotrimazole troches. Does not feel there was much benefit from th nayely so she does not use them consistently. Today she would like to discuss her concerns for her long standing persistent sore throat. Reports she has had a continuous sore throat for the past 3 years. Causes difficulty swallow ing foods. When she takes her medication she has to take 2 pills at time throughout the day due to dyspepsia, but not dyspharia. Her main question regarding these symptoms is if they c ould be a sign of cancer. Denies feeling of throat feeling more constricted. Describes throa t to be more irritated, raw and painful. Has had an EGD in August of 2013 that did not reveal any signs of malignancy, but did support severe GERD. She reports that she is not taking h er GERD medications. No other skin or systemic complaints. From Previous Note: She was last seen in 05/2014. At that visit, minocycline 100mg BID was added to methotrexate 15mg q weekly. She was set up to have rituximab infusions done locally (near [place]). Wh ile receiving her first infusion on 07/04/2014, she developed hives, facial flushing and elev ated blood pressure so infusion was discontinued prematurely. She did not have any angioedem a, shortness of breath or chest pain. She did not have any subsequent infusions as she was a fraid of the hives/flushing recurring. Dr. Barillas was alerted of this occurrence and hunter henderson increased her methotrexate to 20mg once weekly. She has completed three weeks on this do se. She also has been taking the minocycline 100mg 1-2 times daily. She has a difficult time swallowing the minocycline due to large size so occasionally coughs it up. She feels that h er scalp and nasal disease has cleared, however her mouth is still very inflamed. She has ma ny oral ulcers, pain with swallowing, bleeding gums with eating and brushing teeth. She also had a small skin break out of itchy bumps on her right arm and left elbow. She uses fluocin onide ointment which she does not think helps very much. She is not using anything topically in her mouth. ROS: +dysphagia, odynophagia, weight loss (stable since last appointment), low appetite PAST MEDICAL HISTORY: - diabetes mellitus - hypertension - hypothyroidism - h/o MRSA neck abscess - melanoma age 16 unknown depth - glaucoma - vit D deficiency - primary hyperparathyroidism - last DEXA T score -1.5 SOCIAL HISTORY: First grandchild born spring 2014 in [place] MEDICATIONS: Current Medication List Name Sig ATENOLOL [...] Allow to dissolve for 1 5-30 minutes. DEXAMETHASONE 0.5 MG/5 ML ORAL ELIXIR Swish [...] 1 capsule by mouth every twelve hours. PREDNISONE 10 MG TABLET 4 tablets daily for 1 week, then 3 tablets daily for 1 week, then t o 2 tablets daily for 1 week, then 1 tablet daily for 1 week RANITIDINE 300 MG TABLET Take 300 mg by mouth two times daily. SUCRALFATE 100 MG/ML ORAL SUSPENSION Take by mouth once daily. TIMOLOL MALEATE 0.5 % EYE DROPS 1 drop two times daily. ALLERGIES: No Known Allergies PHYSICAL EXAMINATION: BP 128/84 | Pulse 76 | RR 14 Well-developed, well-nourished female in no acute distress. Awake, alert and oriented. Pl easant and cooperative mood. A skin examination was performed including the hair, face, eyelids, lips, teeth, gums, orop harynx, neck, buttocks, bilateral forearms and lower legs, bilateral hands, and nails. Find ings were within normal limits except for the following: --diffuse, severe erosion under tongue, along lower gingiva, bilateral buccal mucosa, upper gingiva --conjunctiva appear normal --scalp clear --bilateral shins [...] disease is poorly controlled. She has taken ~2.5 months of methotr exate at increased dose of 20mg per week without improvement. She is not consistently using topicals, but does not feel that they are helpful. She took a prednisone taper without any improvement in her oral disease. - discussed options including increased methotrexate (I feel this is unlikely to help given that she has no response at 20 mg weekly), changing methotrexate to subcut (she refuses to give herself another injection, so this is out), cellcept (she is concerned about the cost b /c she is in the donut hole and she is concerned about being able to swallow them). She wou ld prefer to not be on any pills and would like a cure. We again discussed rituxan as an op tion. --Discussed that the symptoms of hives and facial flushing that occured during her rituxima b infusion are not life threatening and should not preclude her from receiving the infusion again in the future. Will administer at infusion center at [facility]. --Will order Rituximab infusion. Patient does not want this to begin until after the we ek oct due to the [place]. --Continue methotrexate to 20mg (4 on Wednesday, 4 on Wednesday) once per week. Will continue until 1 month after starting Rituximab. --Continue folic acid 1mg once daily --Continue dexamethasone swish and spit 3 times per day prn as tolerated --Continue clotrimazole troches 3 times a day while using the dexamethasone to prevent yeas t growth in the mouth as tolerated --Ok to use topical fluocinonide twice a day to spots on your body. --Labs from August. Will check CBC and CMP again with PCP lab draw this month 2. Hx of melanoma, unknown depth. Not addressed today 3. Elevated PTH --currently being worked up by equine intern. 4. Dyspepsia -- encouraged her to restart her medications 5. ?dysphagia -- likely 2/2 GERD based on prior EDG. No evidence of malignancy on EDG 1 ye ar ago. Continue to monitor RETURN VISIT: Will depend on rituxan timing. 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
--- OUTSIDE RECORDS SUMMARY | ~2018-07-19 | XMS | Encounter Summary ---
Demographics + + + | Address | [address] | | | [place] [address] | + + + | Home Phone [...] + + + | Author | [facility] | + + + | Organization | [facility] | + + + | Address | Unknown | + + + | Phone | Unavailable | + + + Support + + + + + | Name | Relationship | Address | Phone | + + + + + | Kenton Arshad | [address] | [address] | | | | | [place] | | | | | [address] | | + + + + + Care Team Providers + +------+ + | Care Cereal Chemist Name | Role | Phone | + +------+ + | Aleksey Kaleb DO | PCP | | + +------+ + Reason for Visit + + + | Reason | Comments | + + + | Discussion | Pharm calling about triamcinolone acetonide 0.1 % topical cream | | | (NEED DAY AMOUNT SUPPLY) | + + + Encounter Details +--------+ + + + + | Date | Type | Department | Care Team | Description | +--------+ + + + + | 11/21/ | Telephone | Dermatology | Radha Barillas MD | Discussion (Pharm | | 2016 | | Medical at [facility] 16 | [address] | calling about | | | | Floor [address] | [place], [place] | triamcinolone | | | | Ave Mail Code: | [address] | acetonide 0.1 % | | | | [facility] | [phone] | topical cream (NEED | | | | [facility], | | DAY AMOUNT SUPPLY)) | | | | 16th floor | | | | | | [place], [place] | | | | | | [address] | | | | | | [phone] | | | +--------+ + + + [...]
--- OUTSIDE RECORDS SUMMARY | ~2018-07-19 | XMS | Encounter Summary ---
Demographics + + + | Address | [address] | | | [place] [address] | + + + | Home Phone | | + + + | Preferred Language | Unknown | + + + | Marital Status | Single | + + + | Buddhist Affiliation | PEN | + + + | Race | White | + + + | Ethnic Group | Not or | + + + Author + + + | Author | [facility] | + + + | Organization | [facility] | + + + | Address | Unknown | + + + | Phone | Unavailable | + + + Support + + + + + | Name | Relationship | Address | Phone | + + + + + | Kenton Arshad | [address] | [address] | | | | | [place] | | | | | [address] | | + + + + + Care Team Providers + +------+ + | Care Yarn Mercerizer Operator Name | Role | Phone | + +------+ + | Kaleb Ryder DO | PCP | | + +------+ + Reason for Visit + + + | Reason | Comments | + + + | Refill Request | methotrexate 2.5 mg tabs | + + + Encounter Details +--------+--------+ + + + | Date | Type | Department | Care Team | Description | +--------+--------+ + + + | 06/25/ | Refill | Dermatology | Radha Barillas MD | Refill Request | | 2014 | | Medical at [facility] 16 | [address] | (methotrexate 2.5 mg | | | | Floor [address] | [place], [place] | tabs) | | | | Ave Mail Code: | [address] | | | | | [facility] [place] for | [phone] | | | | | [facility]aling, | | | | | | 16 floor | | | | | | [place], [place] | | | | | | [address] | | | | | | [phone] | | | +--------+--------+ + + + [...] | + +--------+ + + + | HEP C | Routin | 06/20/2014 | | Results for this | | PCR,QUALITATIVE | e | | | procedure are in the | | | | | | results section. | + +--------+ + + + | CBC, WITH | Routin | 06/20/2014 | | Results for this | | DIFFERENTIAL | e | | | procedure are in the | | | | | | results section. | + +--------+ + + + | COMPLETE METABOLIC | Routin | 06/20/2014 | | Results for this | | SET | e | | | procedure are in the | | (NA,K,CL,CO2,BUN,CRE | | | | results section. | | AT,GLUC,CA,AST,ALT,B | | | | | | TRACI TOTAL,ALK | | | | | | PHOS,ALB,PROT TOTAL) | | | | | + +--------+ + + + | HEPATITIS B SURFACE | Routin | 06/20/2014 | | Results for this | | AB QUAL, SERUM | e | | | procedure are in the | | | | | | results section. | + +--------+ + + + | HEPATITIS B SURFACE | Routin | 06/20/2014 | | Results for this | | AG, SERUM | e | | | procedure are in the | | | | | | results section. | + +--------+ + + + | HEPATITIS B CORE AB, | Routin | 06/20/2014 | | Results for this | | SERUM | e | | | procedure are in the | | | | | | results section. | + +--------+ + + + documented in this encounter Results HEPATITIS B SURFACE AG, SERUM (06/20/2014) + + + + + + | Component | Value | Ref Range | Performed | Pathologist | | | | | At | Signature | + + + + + + | HEPATITIS B | negative | | [facility] | | | SURFACE | | | LAB - | | | AG, SERUM | | | [place] | | + + + + + + + + | Specimen | + + | Blood - Blood | + + + + + + + | Performing | Address | City/State/Zipcode | Phone Number | | Organization | | | | + + + + + | [facility] - | [address] | [place] | [phone] | | [place] | | | | + + + + + HEPATITIS B SURFACE AB QUAL, SERUM (06/20/2014) + + + + + + | Component | Value | Ref Range | Performed | Pathologist | | | | | At | Signature | + + + + + + | HEPATITIS B | negative | | [facility] | | | SURFACE | | | LAB - | | | AG, SERUM | | | [place] | | + + + + + + + + | Specimen | + + | Blood - Blood | + + + + + + + | Performing | Address | City/State/Zipcode | Phone Number | | Organization | | | | + + + + + | [facility] - | [address] | [place], [place] | [phone] | | [place] | | | | + + + + + HEPATITIS B CORE AB, SERUM (06/20/2014) + + + + + + | Component | Value | Ref Range | Performed | Pathologist | | | | | At | Signature | + + + + + + | HEPATITIS B | negative | | [facility] | | | CORE AB, | | | LAB - | | | SERUM | | | [place] | | + + + + + + + + | Specimen | + + | Blood - Blood | + + + + + + + | Performing | Address | City/State/Zipcode | Phone Number | | Organization | | | | + + + + + | [facility] - | [address] | [place] | [phone] | | [place] | | | | + + + + + HEP C PCR,QUALITATIVE (06/20/2014) + +-------+ + + + | Component | Value | Ref Range | Performed | Pathologist | | | | | At | Signature | + +-------+ + + + | HEP C AB | 0 | | [facility] | | | | | | LAB - | | | | | | [place] | | + +-------+ + + + + + | Specimen | + + | | + + + + + + + | Performing | Address | City/State/Zipcode | Phone Number | | Organization | | | | + + + + + | [facility] - | [address] | [place], [place] | [phone] | | [place] | | | | + + + + + COMPLETE METABOLIC SET (NA,K,CL,CO2,BUN,CREAT,GLUC,CA,AST,ALT,BILI TOTAL,ALK PHOS,ALB,PROT TOTAL) (06/20/2014) + +---------+ + + + | Component | Value | Ref Range | Performed | Pathologist | | | | | At | Signature | + +---------+ + + + | GLUCOSE, | 120 (A) | 65 - 110 mg/dL | [facility] | | | PLASMA | | | LAB - | | | (LAB) | | | [place] | | + +---------+ + + + | BUN, PLASMA | 13 | mg/dL | [facility] | | | (LAB) | | | LAB - | | | | | | [place] | | + +---------+ + + + | CREATININE | 0.93 | mg/dL | [facility] | | | PLASMA | | | LAB - | | | (LAB) | | | [place] | | + +---------+ + + + | TOTAL | 6.4 | g/dL | [facility] | | | PROTEIN, | | | LAB - | | | PLASMA | | | [place] | | | (LAB) | | | | | + +---------+ + + + | ALBUMIN, | 3.8 | g/dL | [facility] | | | PLASMA | | | LAB - | | | (LAB) | | | [place] | | + +---------+ + + + | CALCIUM, | 10.4 | mg/dL | [facility] | | | PLASMA | | | LAB - | | | (LAB) | | | [place] | | + +---------+ + + + | BILIRUBIN | 0.8 | Transcutaneous | [facility] | | | TOTAL | | Bilirubinometer | LAB - | | | | | | [place] | | + +---------+ + + + | ALK PHOS | 103 | U/L | [facility] | | | | | | LAB - | | | | | | [place] | | + +---------+ + + + | AST(SGOT) | 31 | U/L | [facility] | | | | | | LAB - | | | | | | [place] | | + +---------+ + + + | SODIUM, | 140 | mmol/L | [facility] | | | PLASMA | | | LAB - | | | (LAB) | | | [place] | | + +---------+ + + + | POTASSIUM, | 4.1 | mmol/L | [facility] | | | PLASMA | | | LAB - | | | (LAB) | | | [place] | | + +---------+ + + + | CHLORIDE, | 107 | mmol/L | [facility] | | | PLASMA | | | LAB - | | | (LAB) | | | [place] | | + +---------+ + + + | TOTAL CO2, | 25 | mmol/L | [facility] | | | PLASMA | | | LAB - | | | (LAB) | | | [place] | | + +---------+ + + + | ALT (SGPT) | 28 | U/L | [facility] | | | | | | LAB - | | | | | | [place] | | + +---------+ + + + + + | Specimen | + + | Blood - Blood | + + + + + + + | Performing | Address | City/State/Zipcode | Phone Number | | Organization | | | | + + + + + | [facility] - | [address] | [place] | [phone] | | [place] | | | | + + + + + CBC, WITH DIFFERENTIAL (06/20/2014) + +-------+ + + + | Component | Value | Ref Range | Performed | Pathologist | | | | | At | Signature | + +-------+ + + + | WHITE CELL | 8.1 | K/cu mm | [facility] | | | COUNT | | | LAB - | | | | | | [place] | | + +-------+ + + + | RED CELL | 4.5 | M/cu mm | [facility] | | | COUNT | | | LAB - | | | | | | [place] | | + +-------+ + + + | HEMOGLOBIN | 13.9 | 12.1999 - 15 | [facility] | | | | | g/dL | LAB - | | | | | | [place] | | + +-------+ + + + | HEMATOCRIT | 44 | % | [facility] | | | | | | LAB - | | | | | | [place] | | + +-------+ + + + | MCV | 97.8 | fL | [facility] | | | | | | LAB - | | | | | | [place] | | + +-------+ + + + | MCH | 31 | pg | [facility] | | | | | | LAB - | | | | | | [place] | | + +-------+ + + + | MCHC | 32 | g/dL | [facility] | | | | | | LAB - | | | | | | [place] | | + +-------+ + + + | PLATELET | 217 | K/cu mm | [facility] | | | COUNT | | | LAB - | | | | | | [place] | | + +-------+ + + + | NEUTROPHIL | 63.3 | % | [facility] | | | % | | | LAB - | | | | | | [place] | | + +-------+ + + + | LYMPHOCYTE | 25 | % | [facility] | | | % | | | LAB - | | | | | | [place] | | + +-------+ + + + | MONOCYTE % | 7.4 | % | [facility] | | | | | | LAB - | | | | | | [place] | | + +-------+ + + + | EOS % | 3.9 | % | [facility] | | | | | | LAB - | | | | | | [place] | | + +-------+ + + + | BASO % | 0.4 | % | [facility] | | | | | | LAB - | | | | | | [place] | | + +-------+ + + + | RDW | 14.6 | % | [facility] | | | | | | LAB - | | | | | | [place] | | + +-------+ + + + | NEUTROPHIL | 5.13 | K/cu mm | [facility] | | | # | | | LAB - | | | | | | [place] | | + +-------+ + + + | LYMPHOCYTE | 2.03 | K/cu mm | [facility] | | | # | | | LAB - | | | | | | [place] | | + +-------+ + + + | MONOCYTE # | 0.6 | K/cu mm | [facility] | | | | | | LAB - | | | | | | [place] | | + +-------+ + + + | EOS # | 0.32 | K/cu mm | [facility] | | | | | | LAB - | | | | | | [place] | | + +-------+ + + + | BASO # | 0.03 | | [facility] | | | | | | LAB - | | | | | | [place] | | + +-------+ + + + | IG# | 0.00 | 0.00 - 0.03 | [facility] | | | | | K/cu mm | LAB - | | | | | | [place] | | + +-------+ + + + + + | Specimen | + + | Blood - Blood | + + + + + + + | Performing | Address | City/State/Zipcode | Phone Number | | Organization | | | | + + + + + | [facility] - | [address] | [place] | [phone] | | [place] | | | | + + + + + documented in this encounter Visit Diagnoses + + | Diagnosis | + + | Bullous pemphigoid - Primary Pemphigoid | + + documented in this encounter"
--- OUTSIDE RECORDS SUMMARY | ~2018-07-19 | XMS | Encounter Summary ---
Demographics + + + | Address | [address] | | | [place] [address] | + + + | Home Phone [...] [place] | | | | | [address] | | + + + + + Care Team Providers + +------+ + | Care Section Beamer Name | Role | Phone | + +------+ + | Kaleb Ryder | PCP | | + +------+ + Reason for Visit + + + | Reason | Comments | + + + | Discussion | calling back | + + + Encounter Details +--------+ + + + + | Date | Type | Department | Care Team | Description | +--------+ + + + + | 05/01/ | Telephone | Dermatology | Radha Barillas MD | Discussion (calling | | 2015 | | Medical at [facility] 16th | [address] | back) | | | | Floor [address] | [place], [place] | | | | | Ave Mail Code: | [address] | | | | | [facility] for | [phone] | | | | | [facility] and Healing, | | | | | | 16 floor | | | | | | [place], [place] | | | | | | [address] | | | | | | [phone] | | | +--------+ + + + [...]
--- OUTSIDE RECORDS SUMMARY | ~2018-07-19 | XMS | Encounter Summary ---
Demographics + + + | Address | [address] | | | [place] [address] | + + + | Home Phone | | + + + | Preferred Language | Unknown | + + + | Marital Status | Single | + + + | Sikh Affiliation | PEN | + + + | Race | White | + + + | Ethnic Group | Not or | + + + Author + + + | Author | [facility] | + + + | Organization | [facility] | + + + | Address | Unknown | + + + | Phone | Unavailable | + + + Support + + + + + | Name | Relationship | Address | Phone | + + + + + | Kenton Arshad | [address] | [address] | | | | | [place] | | | | | [address] | | + + + + + Care Team Providers + +------+ + | Care Automation Test Engineer Name | Role | Phone | + +------+ + | Kaleb Ryder DO | PCP | | + +------+ + Encounter Details +--------+ + + + + | Date | Type | Department | Care Team | Description | +--------+ + + + + | 08/13/ | Documentati | Dermatology | Radha Barillas MD | | | 2014 | on | Medical at [facility] 16th | [address] | | | | | Floor [address] | [place], [place] | | | | | Michelle Mail Code: | [address] | | | | | [facility] [facility] | [phone] | | | | | Health and Healing, | | | | | | 16th floor | | | | | | [place], [place] | | | | | | [address] | | | | | | [phone] | | | +--------+ + + + [...]
--- OUTSIDE RECORDS SUMMARY | ~2018-07-19 | XMS | Encounter Summary ---
Demographics + + + | Address | [address] | | | [place] [address] | + + + | Home Phone [...] [place] | | | | | [address] | | + + + + + Care Team Providers + +------+ + | Care Coke Drawer Name | Role | Phone | + [...] | | 2014 | | Medical at [facility] 16th | [address] | | | | | Floor [address] | [place], [place] | | | | | Ave Mail Code: | [address] | | | | | [facility]16[facility] | [phone] | | | | | Health and Healing, | | | | | | 16 floor | | | | | | [place], [place] | | | | | | [address] | | | | | | [phone] | | | +--------+ + + + [...]
--- OUTSIDE RECORDS SUMMARY | ~2018-07-19 | XMS | Encounter Summary ---
Demographics + + + | Address | [address] | | | [place] [address] | + + + | Home Phone [...] Author + + + | Author | [facility] | + + + | Organization | [facility] | + + + | Address | Unknown | + + + | Phone | Unavailable | + + + Support + + + + + | Name | Relationship | Address | Phone | + + + + + | Kenton Arshad | [address] | [address] | | | | | [place] | | | | | [address] | | + + + + + Care Team Providers + +------+ + | Care Release Specialist Name | Role | Phone | [...] | | 2014 | | Medical at [facility] 16th | [address] | | | | | Floor [address] | [place], [place] | | | | | Ave Mail Code: | [address] | | | | | [address] [facility] | [phone] | | | | | Health and Healing, | | | | | | 16th floor | | | | | | [place], [place] | | | | | | [address] | | | | | | [phone] | | | +--------+ + + + [...]
--- OUTSIDE RECORDS SUMMARY | ~2018-07-19 | XMS | Clinical Summary ---
Demographics + + + | Address | [address] | | | [place] [address] | + + + | Home Phone | | + + + | Preferred Language | Unknown | + + + | Marital Status | Single | + + + | Scientologist Affiliation | PEN | + + + | Race | White | + + + | Ethnic Group | Not or | + + + Author + + + | Author | [facility] | + + + | Organization | [facility] | + + + | Address | Unknown | + + + | Phone | Unavailable | + + + Support + + + + + | Name | Relationship | Address | Phone | + + + + + | Kenton Arshad | ECON | [address] | | | | | [place], [place] | | | | | [address] | | + + + + + Care Team Providers + +------+ + | Care Clinical Liaison Name | Role | Phone | + +------+ + | Kaleb Ryder DO | PP | | + +------+ + Source Comments [facility] is fully live on both [facility] Ambulatory and [facility] InPatient.[facility] Allergies No Known Allergies Medications + + + +---------+------+------+-------+ | Medication | Sig | Dispensed | Refills | Star | End | Statu | | | | | | t | Date | s | | | | | | Date | | | + + + +---------+------+------+-------+ | ranitidine 300 mg | Take 300 mg by mouth | | 0 | | | Activ | | oral tablet | two times daily. | | | | | e | + + + +---------+------+------+-------+ | sucralfate | Take by mouth once | | 0 | | | Activ | | (CARAFATE) 100 mg/mL | daily. | | | | | e | | oral suspension | | | | | | | + + + +---------+------+------+-------+ | atorvastatin 10 mg | Take 10 mg by mouth | | 0 | | | Activ | | oral tablet | once daily. | | | | | e | + + + +---------+------+------+-------+ | levothyroxine | Take 88 mcg by mouth | | 0 | | | Activ | | (SYNTHROID) 88 mcg | once daily. | | | | | e | | oral tablet | | | | | | | + + + +---------+------+------+-------+ | Insulin Glargine | Inject 42 Units | | 0 | | | Activ | | (LANTUS SOLOSTAR) | under the skin | | | | | e | | 100 unit/mL (3 mL) | (SUBC) once daily at | | | | | | | subcutaneous insulin | bedtime. | | | | | | | pen | | | | | | | + + + +---------+------+------+-------+ | timolol 0.5 % | 1 drop two times | | 0 | | | Activ | | ophthalmic drops | daily. | | | | | e | + + + +---------+------+------+-------+ | fluocinonide 0.05 | Apply to affected | | 0 | | | Activ | | % topical ointment | area two times | | | | | e | | | daily. Apply a thin | | | | | | | | layer to affected | | | | | | | | area. | | | | | | + + + +---------+------+------+-------+ | CALCIUM | Take 1,000 Units by | | 0 | | | Activ | | CARBONATE/VITAMIN D3 | mouth. | | | | | e | | (VITAMIN D-3 ORAL) | | | | | | | + + + +---------+------+------+-------+ | clotrimazole 10 mg | Take 1 tablet by | 90 | 1 | 07/1 | | Activ | | mucous membrane | mouth three times | Sarita | | 0/20 | | e | | trocheIndications: | daily. Allow to | | | 15 | | | | Mucous membrane | dissolve for 15-30 | | | | | | | pemphigoid | minutes. | | | | | | + + + +---------+------+------+-------+ | latanoprost 0.005 | 1 drop once daily in | | 0 | | | Activ | | % ophthalmic drops | the evening. | | | | | e | + + + +---------+------+------+-------+ | cloNIDine 0.2 | | | 0 | 02/1 | | Activ | | mg/24 hr transdermal | | | | 8/20 | | e | | patch weekly | | | | 16 | | | + + + +---------+------+------+-------+ | atenolol 50 mg | | | 0 | 03/1 | | Activ | | oral tablet | | | | 1/20 | | e | | | | | | 16 | | | + + + +---------+------+------+-------+ | dapsone 100 mg | Take 1 1/2 pills | 60 | 1 | 07/0 | | Activ | | oral tablet | daily. | tablet | | /20 | | e | | | | | | 16 | | | + + + +---------+------+------+-------+ | triamcinolone | Apply to affected | 80 g | 2 | 10/1 | | Activ | | acetonide 0.1 % | area two times | | | 4/20 | | e | | topical cream | daily. Apply twice | | | 16 | | | | | daily to itchy skin | | | | | | | | until smooth. 30 day | | | | | | | | supply. | | | | | | + + + +---------+------+------+-------+ Active Problems + + + | Problem | Noted Date | + + + | Personal history of malignant melanoma of skin | 08/18/2015 | + + + | Bullous pemphigoid | 10/03/2014 | + + + Immunizations + + + + | Name | Administration Dates | Next Due | + + + + | Triamcinolone | 08/16/2015 | | | Acetonide 10 Mg/ml | | | + + + + Social History + [...] recent travel history available. | + + Last Filed Vital Signs + + + + + | Vital Sign | Reading | Time Taken | Comments | + + + + + | Blood Pressure | 130/86 | 11/22/2015 2:25 PM | | | | | PDT | | + + + + + | Pulse | 66 | 11/22/2015 2:25 PM | | | | | PDT | | + + + + + | Temperature | - | - | | + + + + + | Respiratory Rate | 16 | 11/22/2015 2:25 PM | | | | | PDT [...] | | + + + + + Plan of Treatment + + + + + | Health Maintenance | Due Date | Last Done | Comments | + + + + + | Pneumococcal | | | | | vaccination ( | 0 | | | | - PCV13) | | | | + + + + + | Influenza (Flu) | | | | | vaccination (Season | 9 | | | | Ended) | | | | + + + + + Results Not on filefrom Last 3 Months Insurance + +--------+ +--------+ + +--------+ | Payer | Benefi | Subscriber | Effect | Phone | Address | Type | | | t Plan | ID | дмитрий | | | | | | / | | Dates | | | | | | Group | | | | | | + +--------+ +--------+ + +--------+ | MEDICARE | MEDICA | xxxxxxxxxx | 05/10/19 | [phone] | [address] | Medica | | | RE A & | | 10-Pre | 1 [phone] | re | | | B | | sent | | [place] | | | | | | | | [address] | | + +--------+ +--------+ + +--------+ | MUTUAL OF [place] | MUTUAL | [id number] | Effect | [phone] | MUTUAL OF | Indemn | | MEDICARE SUPPL | OF | | дмитрий | 0 | [place] | ity | | | [place] | | for | | PLAZA | | | | MEDICA | | all | | [place] | | | | RE | | dates | | [phone] | | | | SUPPL | | | | | | + +--------+ +--------+ + +--------+ + +--------+ +--------+ + + | Guarantor Name | Accoun | Relation to | Date | Phone | Billing Address | | | t Type | Patient | of | | | | | | | | | | + +--------+ +--------+ + + | Matilda Arshad | Person | Self | [birth year] | [address] | | | al/Fam | | 1946 | [phone] | [place] | | | zane | | | [address] (Home) | [address] | + +--------+ +--------+ + +"
--- OUTSIDE RECORDS SUMMARY | ~2018-07-19 | XMS | Encounter Summary ---
Demographics + + + | Address | [address] | | | [place] [address] | + + + | Home Phone | | + + + | Preferred Language | Unknown | + + + | Marital Status | Single | + + + | Scientology Affiliation | PEN | + + + | Race | White | + + + | Ethnic Group | Not or | + + + Author + + + | Author | [facility] | + + + | Organization | [facility] | + + + | Address | Unknown | + + + | Phone | Unavailable | + + + Support + + + + + | Name | Relationship | Address | Phone | + + + + + | Kenton Arshad | [address] | [address] | | | | | [place] | | | | | [address] | | + + + + + Care Team Providers + +------+ + | Care Straw Hat Washer Operator Name | Role | Phone | [...] | +--------+ + + + + | 06/25/ | Telephone | Dermatology | Radha Barillas MD | Discussion | | 2014 | | Medical at [facility] 16 | [address] | | | | | Floor [address] | [place], [place] | | | | | Ave Mail Code: | [address] | | | | | [facility] | [phone] | | | | | Health and Healing, | | | | | | 16 floor | | | | | | [place], [place] | | | | | | [address] | | | | | | [phone] | | | +--------+ + + + [...]
--- OUTSIDE RECORDS SUMMARY | ~2018-07-19 | XMS | Encounter Summary ---
Demographics + + + | Address | [address] | | | [place] [address] | + + + | Home Phone | | + + + | Preferred Language | Unknown | + + + | Marital Status | Single | + + + | Mormonism Affiliation | PEN | + + + | Race | White | + + + | Ethnic Group | Not or | + + + Author + + + | Author | [facility] | + + + | Organization | [facility] | + + + | Address | Unknown | + + + | Phone | Unavailable | + + + Support + + + + + | Name | Relationship | Address | Phone | + + + + + | Kenton Arshad | [address] | [address] | | | | | [place] | | | | | [address] | | + + + + + Care Team Providers + +------+ + | Care Manager Building Name | Role | Phone | + +------+ + PCP | Unavailable | + +------+ + Encounter Details +--------+ + + + + | Date | Type | Department | Care Team | Description | +--------+ + + + + | 05/10/ | Hospital | Dermatopathology | | | | 2013 | Encounter | [address] | | | | | | Mail Code: CH16D | | | | | | [facility] | | | | | | and Healing, 5th | | | | | | floor [place], [place] | | | | | | [address] | | | | | | [phone] | | | +--------+ + + + + Social History + +-------+ +--------+------+ | Tobacco Use | Types | Packs/Day | Years | Date | | | | | Used | | + +-------+ +--------+------+ | Never Assessed | | | | | + +-------+ +--------+------+ + + + | Sex Assigned at [...] + + | IMMUNOFLUORESCENCE | Routin | 05/10/2013 | | Results for this | | STUDY | e | | | procedure are in the | | | | | | results section. | + +--------+ + + + | DERM PATHOLOGY | Routin | 05/10/2013 | | Results for this | | | e | | | procedure are in the | | | | | | results section. | + +--------+ + + + documented in this encounter Results IMMUNOFLUORESCENCE STUDY (05/10/2013) + + + + + + | Component | Value | Ref Range | Performed | Pathologist | | | | | At | Signature | + + + + + + | IMMUNOFLUOR | SOURCE OF SPECIMEN:A | | [facility] | | | ESCENCE | Direct | | DERMATOPATH | | | STUDY | Immunofluorescence | | OLOGY | | | | CLINICAL | | | | | | INFORMATION:On May 10, | | | | | | 2013, a punch biopsy was | | | | | | taken from perilesional | | | | | | skin of thepretibial | | | | | | area for direct | | | | | | immunofluorescence | | | | | | studies to R/O | | | | | | BullousPemphigoid. | | | | | | TISSUE PROCESSING:On | | | | | | May 12, 2013, a 4 x 5mm | | | | | | horowitz cylinder of tissue | | | | | | was received in | | | | | | directimmunofluorescence | | | | | | holding | | | | | | solution. After | | | | | | washing, the tissue was | | | | | | frozenOCT, and | | | | | | cryosectioned onto five | | | | | | separate slides. The | | | | | | sections were | | | | | | thenstained with | | | | | | fluorescein | | | | | | isothiocyanate | | | | | | conjugated anti-human | | | | | | IgG, IgA,IgM, C3, and | | | | | | fibrinogen, | | | | | | respectively. | | | | | | FINDINGS:There is | | | | | | moderately intense | | | | | | linear deposition of | | | | | | both IgG and C3 found | | | | | | atthe basement membrane | | | | | | zone. There is no | | | | | | specific deposition of | | | | | | IgA, IgM,or fibrinogen | | | | | | identified in these | | | | | | sections. | | | | | | COMMENTS/DIAGNOSIS:The | | | | | | above findings are | | | | | | consistent with a | | | | | | diagnosis of bullous | | | | | | pemphigoid.The | | | | | | immunopathologic | | | | | | differential diagnosis | | | | | | includes epidermolysis | | | | | | bullosaacquisita, | | | | | | cicatricial pemphigoid | | | | | | or bullous | | | | | | lupus. Testing | | | | | | was performed with an | | | | | | appropriate positive and | | | | | | negative control | | | | | | foreach | | | | | | immunoreactant. | | | | | | M:jyi05/18/13 | | | | | | My electronic signature | | | | | [...] Mariana | | | | | | Ginny Avendano | | | | | | Bairon | | | | | | rosemarie Signed 05/22/2013 | | | | | | 10:31PM | | | | + + + + + + + + | Specimen | + + | | + + + + + + + | Performing | Address | City/State/Zipcode | Phone Number | | Organization | | | | + + + + + | [facility] | Mailcode CH[address], [address] | [place] [address] | | | [facility] | [address] | | | + + + + + DERM PATHOLOGY (05/10/2013) + + + + + + | Component | Value | Ref Range | Performed | Pathologist | | | | | At | Signature | + + + + + + | DERMATOPATH | SOURCE OF SPECIMEN:A Rt. | | [facility] | | | OLOGY(WET | pretibial, punch | | DERMATOPATH | | | MNT) | biopsy CLINICAL | | OLOGY | | | | DESCRIPTION:r/o bullous | | | | | | pemphigoid. | | | | | | GROSS | | | | | | DESCRIPTION:Received in | | | | | | formalin is a specimen | | | | | | labeled Pavithra, | | | | | | Matilda:A: Specimen is | | | | | | labeled "R pretibial" | | | | | | and consists of a 4mm | | | | | | punch of yellowskin, cut | | | | | | to a depth of 7mm. The | | | | | | surgical margin is inked | | | | | | black; the tissueis | | | | | | bisected; and entirely | | | | | | submitted in cassette | | | | | | A1. MICROSCOPIC | | | | | | DESCRIPTION:There is a | | | | | | subepidermal vesicle, | | | | | | beneath which is a | | | | | | relatively | | | | | | sparse,superficial | | | | | | perivascular and | | | | | | interstitial, mixed | | | | | | infiltrate of | | | | | | lymphocytesand | | | | | | occasional eosinophils. | | | | | | There is also solar | | | | | | elastosis. | | | | | | DIAGNOSIS:BULLOUS | | | | | | PEMPHIGOID. | | | | | | KPW:mm4/09/21 My | | | | | | [...] | | | | | | Diagnostician: Jaime | | | | | | Lei | | | | | | M.D.PathologistElectroni | | | | | | rosemarie Signed | | | | | | 05/16/2013 5:03PM | | | | + + + + + + + + | Specimen | + + | | + + + + + + + | Performing | Address | City/State/Zipcode | Phone Number | | Organization | | | | + + + + + | [facility] | [address] | [place] [address] | | | DERMATOPATHOLOGY | [address] | | | + + + + + documented in this encounter Visit Diagnoses Not on filedocumented in this encounter
--- OUTSIDE RECORDS SUMMARY | ~2018-07-19 | XMS | Encounter Summary ---
Demographics + + + | Address | [address] | | | [place] [address] | + + + | Home Phone | | + + + | Preferred Language | Unknown | + + + | Marital Status | Single | + + + | Anabaptist Affiliation | PEN | + + + | Race | White | + + + | Ethnic Group | Not or | + + + Author + + + | Author | [facility] | + + + | Organization | [facility] | + + + | Address | Unknown | + + + | Phone | Unavailable | + + + Support + + + + + | Name | Relationship | Address | Phone | + + + + + | Kenton Arshad | [address] | [address] | | | | | [place] | | | | | [address] | | + + + + + Care Team Providers + +------+ + | Care Surveillance Sensor Officer Name | Role | Phone | + [...] | | 2014 | | Medical at [facility] 16 | [address] | (methotrexate 2.5 mg | | | | Floor [address] | [place], [place] | tabs) | | | | Ave Mail Code: | [address] | | | | | [address] [facility] | [phone] | | | | | Health and Healing, | | | | | | 16 floor | | | | | | [place], [place] | | | | | | [address] | | | | | | [phone] | | | +--------+--------+ + + + [...] [address] | [place] | [phone] | | [place] | | | | [...] [address] | [place], [place] | [phone] | | [place] | | | | [...] [address] | [place] | [phone] | | [place] | | | | [...] [address] | [place], [place] | [phone] | | [place] | | | | [...] [address] | [place] | [phone] | | [place] | | | | [...] + + | LOREN [facility] - | [address] | [place] | [phone] | | [place] | | | | + + + + + documented in this encounter Visit Diagnoses + + | Diagnosis | + + | Bullous pemphigoid - Primary Pemphigoid | + + documented in this encounter"
--- OUTSIDE RECORDS SUMMARY | ~2018-07-19 | XMS | Encounter Summary ---
Demographics + + + | Address | [address] | | | [place] [address] | + + + | Home Phone | | + + + | Preferred Language | Unknown | + + + | Marital Status | Single | + + + | Caodaism Affiliation | PEN | + + + | Race | White | + + + | Ethnic Group | Not or | + + + Author + + + | Author | [facility] | + + + | Organization | [facility] | + + + | Address | Unknown | + + + | Phone | Unavailable | + + + Support + + + + + | Name | Relationship | Address | Phone | + + + + + | Kenton Arshad | [address] | [address] | | | | | [place] | | | | | [address] | | + + + + + Care Team Providers + +------+ + | Care Job Press Feeder Name | Role | Phone | + +------+ + | Aleksey Kaleb DO | PCP | | + +------+ + Encounter Details +--------+ + + + + | Date | Type | Department | Care Team | Description | +--------+ + + + + | 06/04/ | Document-Sc | UNKNOWN DEPARTMENT | Unknown . | | | 2014 | anned | [address] [facility] | | | | | | [address] | | | | | | [place], [place] | | | | | | [address] | | | +--------+ + + + [...] | + +--------+ + + + | ORDERS OTHER | | 06/04/2014 | | Results for this | | | | 12:00 AM | | procedure are in the | | | | PDT | | results section. | + +--------+ + + + documented in this encounter Results ORDERS OTHER (06/04/2014 12:00 AM PDT) + + + | Narrative | Performed At | + + + | | | | | | + + + + + | Procedure Note | + + | Joel Jones - 06/04/2014 12:47 PM PDT | + + documented in this encounter Visit Diagnoses Not on filedocumented in this encounter"
--- OUTSIDE RECORDS SUMMARY | ~2018-07-19 | XMS | Encounter Summary ---
Demographics + + + | Address | [address] | | | [place] [address] | + + + | Home Phone [...] Author | [facility] | + + + | Organization | [facility] | + + + | Address | Unknown | + + + | Phone | Unavailable | + + + Support + + + + + | Name | Relationship | Address | Phone | + + + + + | Kenton Arshad | [address] | [address] | | | | | [place] | | | | | [address] | | + + + + + Care Team Providers + +------+ + | Care Therapeutic Recreation Leader Name | Role | Phone | + +------+ + | Aleksey Kaleb DO | PCP | | + +------+ + Encounter Details +--------+ + + + + | Date | Type | Department | Care Team | Description | +--------+ + + + + | 06/04/ | Document-Sc | UNKNOWN DEPARTMENT | Unknown . | | | 2014 | anned | [address] [facility] | | | | | | [address] | | | | | | [place], [place] | | | | | | [address] | | | +--------+ + + + [...]
--- OUTSIDE RECORDS SUMMARY | ~2018-07-19 | XMS | Encounter Summary ---
Demographics + + + | Address | [address] | | | [place] [address] | + + + | Home Phone | | + + + | Preferred Language | Unknown | + + + | Marital Status | Single | + + + | Taoism Affiliation | PEN | + + + [...] [place] | | | | | [address] | | + + + + + Care Team Providers + +------+ + | Care Director Of Payroll Name | Role | Phone | + +------+ + | Kaleb Ryder DO | PCP | | + +------+ + Reason for Visit + + + | Reason | Comments | + + + | Refill Request | minocycline hcl 100 mg caps | + + + Encounter Details +--------+--------+ + + + | Date | Type | Department | Care Team | Description | +--------+--------+ + + + | 06/25/ | Refill | Dermatology | Radha Barillas MD | Refill Request | | 2014 | | Medical at [facility] 16 | [address] | (minocycline hcl 100 | | | | Floor [address] | [place], [place] | mg caps) | | | | Ave Mail Code: | [address] | | | | | CH69D [facility] | [phone] | | | | | Health and Healing, | | | | | | 16 floor | | | | | | [place], [place] | | | | | | [address] | | | | | | [phone] | | | +--------+--------+ + + + [...]
--- OUTSIDE RECORDS SUMMARY | ~2018-07-19 | XMS | Encounter Summary ---
Demographics + + + | Address | [address] | | | [place] [address] | + + + | Home Phone | | + + + | Preferred Language | Unknown | + + + | Marital Status | Single | + + + | Advent Affiliation | PEN | + + + | Race | White | + + + | Ethnic Group | Not or | + + + Author + + + | Author | [facility] | + + + | Organization | [facility] | + + + | Address | Unknown | + + + | Phone | Unavailable | + + + Support + + + + + | Name | Relationship | Address | Phone | + + + + + | Kenton Arshad | [address] | [address] | | | | | [place] | | | | | [address] | | + + + + + Care Team Providers + +------+ + | Care Unix Administrator Name | Role | Phone | + [...] | | 2014 | | Medical at [facility] 16th | [address] | | | | | Floor [address] | [place], [place] | | | | | Ave Mail Code: | [address] | | | | | [facility] | [phone] | | | | | Health and Healing, | | | | | | 16 floor | | | | | | [place], [place] | | | | | | [address] | | | | | | [phone] | | | +--------+ + + + [...]
--- OUTSIDE RECORDS SUMMARY | ~2018-07-19 | XMS | Encounter Summary ---
Demographics + + + | Address | [address] | | | [place] [address] | + + + | Home Phone | | + + + | Preferred Language | Unknown | + + + | Marital Status | | + + + | Restorationist Affiliation | [id number] | + + + | Race | Unknown | + + + | Ethnic Group | Unknown | + + + Author + + + | Author | [facility] | | | and Tomana | + + + | Organization | [facility] | | | and [...] Team Providers + +------+ + | Care Entomology Teacher Name | Role | Phone | + [...] | (Primary Dx); | | | | [place], | | Essential | | | | [place] [address] | | hypertension | | | | [phone] | | | +--------+---------+ + + + [...] Due: today Where to go for labs: [facility]- [address] [facility] Blood test: Fasting- 12 hours prior to [...] with addition of hydrochlorothiazide PLAN OR RECOMMENDATIONS: [facility] today Increase atorvastatin 40 mg daily Fasting lipid profile, ALT 8 weeks Discontinue clopidogrel August 08, 2018 Clinic follow-up 6 months or sooner as needed Recommend whole food plant-based diet, increase aerobic activity I appreciate the opportunity of participating in the care of this patient. Vern Valdivia MD,[facility], 04/27/2018 11:27 documented in this encoun ter [...] mL/min/1.73m2 | [facility] | | | [facility] | | | MEDICAL | | | [...] [address] | [place] | [phone] | | [facility] | | [address] | | | - LABORATORY | | | | + + + + + documented in this encounter Visit Diagnoses + + | Diagnosis | + + | Dyslipidemia - Primary Other and unspecified hyperlipidemia | + + | Essential hypertension Unspecified essential hypertension | + + documented in this encounter
--- OUTSIDE RECORDS SUMMARY | ~2018-07-19 | XMS | Encounter Summary ---
Demographics + + + | Address | [address] | | | [place] [address] | + + + | Home Phone | | + + + | Preferred Language | Unknown | + + + | Marital Status | Single | + + + | Holiness Affiliation | PEN | + + + | Race | White | + + + | Ethnic Group | Not or | + + + Author + + + | Author | [facility] | + + + | Organization | [facility] | + + + | Address | Unknown | + + + | Phone | Unavailable | + + + Support + + + + + | Name | Relationship | Address | Phone | + + + + + | Kenton Arshad | [address] | [address] | | | | | [place] | | | | | [address] | | + + + + + Care Team Providers + +------+ + | Care Plastic Panel Installer Name | Role | Phone | [...] | | 2016 | | Medical at [facility] 16 | [address] | calling about | | | | Floor [address] | [place], [place] | triamcinolone | | | | Ave Mail Code: | [address] | acetonide 0.1 % | | | | [facility] | [phone] | topical cream (NEED | | | | Health and Healing, | | DAY AMOUNT SUPPLY)) | | | | 16th floor | | | | | | [place], [place] | | | | | | [address] | | | | | | [phone] | | | +--------+ + + + [...]
--- OUTSIDE RECORDS SUMMARY | ~2018-07-19 | XMS | Encounter Summary ---
Demographics + + + | Address | [address] | | | [place] [address] | + + + | Home Phone | | + + + | Preferred Language | Unknown | + + + | Marital Status | Single | + + + | Adventist Affiliation | PEN | + + + [...] [place] | | | | | [address] | | + + + + + Care Team Providers + +------+ + | Care Automotive Services Manager Name | Role | Phone | + +------+ + | Kaleb Ryder DO | PCP | | + +------+ + Encounter Details +--------+ + + + + | Date | Type | Department | Care Team | Description | +--------+ + + + + | 02/12/ | Documentati | Dermatology | Radha Barillas MD | | | 2015 | on | Medical at [facility] 16th | [address] | | | | | Floor [address] | [place], [place] | | | | | Michelle Mail Code: | [address] | | | | | [facility] [facility] | [phone] | | | | | Health and Healing, | | | | | | 16th floor | | | | | | [place], [place] | | | | | | [address] | | | | | | [phone] | | | +--------+ + + + [...]
--- OUTSIDE RECORDS SUMMARY | ~2018-07-19 | XMS | Encounter Summary ---
Demographics + + + | Address | [address] | | | [place] [address] | + + + | Home Phone [...] Author + + + | Author | [facility] | + + + | Organization | [facility] | + + + | Address | Unknown | + + + | Phone | Unavailable | + + + Support + + + + + | Name | Relationship | Address | Phone | + + + + + | Kenton Arshad | [address] | [address] | | | | | [place] | | | | | [address] | | + + + + + Care Team Providers + +------+ + | Care Telephone Order Supervisor Name | Role | Phone | [...] | +--------+ + + + + | 08/07/ | Documentati | Dermatology | Radha Barillas MD | Test Results | | 2016 | on | Medical at [facility] 16th | [address] | | | | | Floor [address] | [place], [place] | | | | | Ave Mail Code: | [address] | | | | | [facility] | [phone] | | | | | Health and Healing, | | | | | | 16 floor | | | | | | [place], [place] | | | | | | [address] | | | | | | [phone] | | | +--------+ + + + [...]
--- OUTSIDE RECORDS SUMMARY | ~2018-07-19 | XMS | Encounter Summary ---
Demographics + + + | Address | [address] | | | [place] [address] | + + + | Home Phone | | + + + | Preferred Language | Unknown | + + + | Marital Status | Single | + + + | Voodoo Affiliation | PEN | + + + [...] [place] | | | | | [address] | | + + + + + Care Team Providers + +------+ + | Care Art Objects Repairer Name | Role | Phone | + +------+ + | Aleksey Kaleb | PCP | | + +------+ + Reason for Visit + + + | Reason | Comments | + + + | Discussion | medication question | + + + Encounter Details +--------+ + + + + | Date | Type | Department | Care Team | Description | +--------+ + + + + | 07/06/ | Telephone | Dermatology | Radha Barillas MD | Discussion | | 2014 | | Medical at [facility] 16 | [address] | (medication question | | | | Floor [address] | [place], [place] | ) | | | | Ave Mail Code: | [address] | | | | | [facility] [facility] | [phone] | | | | | Health and Healing, | | | | | | 16th floor | | | | | | [place], [place] | | | | | | [address] | | | | | | [phone] | | | +--------+ + + + [...]
--- OUTSIDE RECORDS SUMMARY | ~2018-07-19 | XMS | Encounter Summary ---
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 Radha Barillas MD MSCE Assistant Property Manager of Dermatology [facility] Ibapah eterson Malagon MA - 1:08 PM PDT I, Peterson Malagon CMA, am functioning as a scribe for Radha Barillas M.D. Assistant Property Manager, Department of Dermatology DERMATOLOGY FOLLOW UP PATIENT VISIT Last Office Visit in [facility] was on 08/17/14 at 4:00 pm [...] to have rituximab infusions done locally (near [place]). Wh ile receiving her first infusion on [...] HISTORY: First grandchild born spring 2014 in [place] MEDICATIONS: Current Medication List Name Sig ATENOLOL [...] future. Will administer at infusion center at [facility]. --Will order Rituximab infusion. Patient does not [...] Elevated PTH --currently being worked up by hat and cap parts cutter hand. 4. Dyspepsia -- encouraged her to restart her medications 5. ?dysphagia -- likely 2/2 GERD based on prior EDG. No evidence of malignancy on EDG 1 ye ar ago. Continue to monitor RETURN VISIT: Will depend on rituxan timing. Peterson Malagon CMA Department of Dermatology [facility] 09/21/14 documented in t his encounter [...]
--- OUTSIDE RECORDS SUMMARY | ~2018-07-19 | XMS | Encounter Summary ---
Demographics + + + | Address | [address] | | | [place] [address] | + + + | Home Phone | | + + + | Preferred Language | Unknown | + + + | Marital Status | Single | + + + | Orthodoxy Affiliation | PEN | + + + [...] [place] | | | | | [address] | | + + + + + Care Team Providers + +------+ + | Care Bank Clerk Name | Role | Phone | + +------+ + | Kaleb Ryder DO | PCP | | + +------+ + Encounter Details +--------+ + + + + | Date | Type | Department | Care Team | Description | +--------+ + + + + | 02/12/ | Documentati | Dermatology | Radha Barillas MD | | | 2015 | on | Medical at [facility] 16th | [address] | | | | | Floor [address] | [place], [place] | | | | | Michelle Mail Code: | [address] | | | | | [facility] | [phone] | | | | | Health and Healing, | | | | | | 16th floor | | | | | | [place], [place] | | | | | | [address] | | | | | | [phone] | | | +--------+ + + + [...]
--- OUTSIDE RECORDS SUMMARY | ~2018-07-19 | XMS | Encounter Summary ---
Demographics + + + | Address | [address] | | | [place] [address] | + + + | Home Phone [...] [place] | | | | | [address] | | + + + + + Care Team Providers + +------+ + | Care Receiving Lead Name | Role | Phone | + +------+ + | Kaleb Ryder DO | PCP | | + +------+ + Encounter Details +--------+ + + + + | Date | Type | Department | Care Team | Description | +--------+ + + + + | 12/05/ | Documentati | Dermatology | Radha Barillas MD | | | 2014 | on | Medical at [facility] 16th | [address] | | | | | Floor [address] | [place], [place] | | | | | Michelle Mail Code: | [address] | | | | | [facility] | [phone] | | | | | Health and Healing, | | | | | | 16th floor | | | | | | [place], [place] | | | | | | [address] | | | | | | [phone] | | | +--------+ + + + [...]
--- OUTSIDE RECORDS SUMMARY | ~2018-07-19 | XMS | Encounter Summary ---
Demographics + + + | Address | [address] | | | [place] [address] | + + + | Home Phone | | + + + | Preferred Language | Unknown | + + + | Marital Status | Single | + + + | Nondenominational Affiliation | PEN | + + + [...] [place] | | | | | [address] | | + + + + + Care Team Providers + +------+ + | Care Mixing Machine Tender Cork Rod Name | Role | Phone | + [...] | +--------+ + + + + | 12/01/ | Telephone | Dermatology | Radha Barillas MD | Discussion | | 2015 | | Medical at [facility] 16 | [address] | | | | | Floor [address] | [place], [place] | | | | | Ave Mail Code: | [address] | | | | | [facility] | [phone] | | | | | Health and Healing, | | | | | | 16 floor | | | | | | [place], [place] | | | | | | [address] | | | | | | [phone] | | | +--------+ + + + [...]
--- OUTSIDE RECORDS SUMMARY | ~2018-07-19 | XMS | Encounter Summary ---
Demographics + + + | Address | [address] | | | [place] [address] | + + + | Home Phone | | + + + | Preferred Language | Unknown | + + + | Marital Status | | + + + | Moravian Affiliation | 1028 | + + + | Race | Unknown | + + + | Ethnic Group | Unknown | + + + Author + + + | Author | [facility] | | | and Tomana | + + + | Organization | [facility] | | | and Tomana [...] Providers + +------+ + | Care Human Resources Administrator Name | Role | Phone | [...] | | | | | | [place] [address] | | | | | | [phone] | | | +--------+ + + + [...]
--- OUTSIDE RECORDS SUMMARY | ~2018-07-19 | XMS | Encounter Summary ---
Demographics + + + | Address | [address] | | | [place] [address] | + + + | Home Phone | | + + + | Preferred Language | Unknown | + + + | Marital Status | Single | + + + | Jain Affiliation | PEN | + + + | Race | White | + + + | Ethnic Group | Not or | + + + Author + + + | Author | [facility] | + + + | Organization | [facility] | + + + | Address | Unknown | + + + | Phone | Unavailable | + + + Support + + + + + | Name | Relationship | Address | Phone | + + + + + | Kenton Arshad | [address] | [address] | | | | | [place] | | | | | [address] | | + + + + + Care Team Providers + +------+ + | Care Deployment Manager Name | Role | Phone | [...] | | 2015 | | Medical at [facility] 16 | [address] | | | | | Floor [address] | [place], [place] | | | | | Ave Mail Code: | [address] | | | | | [facility] [facility] | [phone] | | | | | Health and Healing, | | | | | | 16 floor | | | | | | [place], [place] | | | | | | [address] | | | | | | [phone] | | | +--------+ + + + [...]
--- OUTSIDE RECORDS SUMMARY | ~2018-07-19 | XMS | Encounter Summary ---
Demographics + + + | Address | [address] | | | [place] [address] | + + + | Home Phone [...] Author + + + | Author | [facility] | + + + | Organization | [facility] | + + + | Address | Unknown | + + + | Phone | Unavailable | + + + Support + + + + + | Name | Relationship | Address | Phone | + + + + + | Kenton Arshad | [address] | [address] | | | | | [place] | | | | | [address] | | + + + + + Care Team Providers + +------+ + | Care Commercial Loan Specialist Name | Role | Phone | [...] | | 2015 | | Medical at [facility] 16th | [address] | back) | | | | Floor [address] | [place], [place] | | | | | Ave Mail Code: | [address] | | | | | [facility] | [phone] | | | | | Health and Healing, | | | | | | 16 floor | | | | | | [place], [place] | | | | | | [address] | | | | | | [phone] | | | +--------+ + + + [...]
--- OUTSIDE RECORDS SUMMARY | ~2018-07-19 | XMS | Encounter Summary ---
Demographics + + + | Address | [address] | | | [place] [address] | + + + | Home Phone [...] [place] | | | | | [address] | | + + + + + Care Team Providers + +------+ + | Care Electrical Systems Design Engineer Name | Role | Phone | [...] 2014 | | Medical at [facility] 16 | [address] | | | | | Floor [address] | [place], [place] | | | | | Ave Mail Code: | [address] | | | | | [facility] | [phone] | | | | | Health and Healing, | | | | | | 16 floor | | | | | | [place], [place] | | | | | | [address] | | | | | | [phone] | | | +--------+ + + + [...]
--- OUTSIDE RECORDS SUMMARY | ~2018-07-19 | XMS | Clinical Summary ---
Demographics + + + | Address | [address] | | | [place] [address] | + + + | Home Phone | | + + + | Preferred Language | Unknown | + + + | Marital Status | | + + + | Latter Day Affiliation | 1028 | + + + | Race | Unknown | + + + | Ethnic Group | Unknown | + + + Author + + + | Author | [facility] | + + + | Organization | [facility] | + + + | Address | Unknown | + + + | Phone | Unavailable | + + + Support + + + + + | Name | Relationship | Address | Phone | + + + + + | Kenton Dumont | [address] | [address] | | | | | [place] | | | | | [address] | | + + + + + Care Team Providers + +------+ + | Care Supervisor Cellars Name | Role | Phone | + +------+ + | Dev Alaniz MD | PP | Unavailable | + +------+ + Allergies + + + + + + | Active Allergy | Reactions | Severity | Noted | Comments | | | | | Date | | + + + + + + | Ciprofloxacin | Rash | Medium | 06/18/19 | | | | | | 13 | | + + + + + + Current Medications + + +-------+---------+------+------+-------+ | Prescription | Sig. | Disp. | Refills | Star | End | Statu | | | | | | t | Date | s | | | | | | Date | | | + + +-------+---------+------+------+-------+ | | Take 1 tablet by | | | | | Activ | | irbesartan-hydrochlo | mouth daily. | | | | | e | | rothiazide (AVALIDE) | | | | | | | | 300-12.5 MG per | | | | | | | | tablet | | | | | | | + + +-------+---------+------+------+-------+ | timolol (BETIMOL) | Apply 1 drop to eye | | | | | Activ | | 0.5 % ophthalmic | 2 (two) times daily. | | | | | e | | solution | | | | | | | + + +-------+---------+------+------+-------+ | latanoprost | Apply 1 drop to eye | | | | | Activ | | (XALATAN) 0.005 % | nightly. | | | | | e | | ophthalmic solution | | | | | | | + + +-------+---------+------+------+-------+ | levothyroxine | Take 88 mcg by mouth | | | | | Activ | | (SYNTHROID, | daily. | | | | | e | | LEVOTHROID) 88 MCG | | | | | | | | tablet | | | | | | | + + +-------+---------+------+------+-------+ | insulin glargine | Inject 35 Units into | | | | | Activ | | (LANTUS) 100 UNIT/ML | the skin nightly. | | | | | e | | injection | | | | | | | + + +-------+---------+------+------+-------+ | | Take 1 tablet by | | | | | Activ | | ezetimibe-simvastati | mouth nightly. | | | | | e | | n (VYTORIN) 10-40 MG | | | | | | | | per tablet | | | | | | | + + +-------+---------+------+------+-------+ | | Take 1 tablet by | | | | | Activ | | sitagliptan-metformi | mouth 2 (two) times | | | | | e | | n (PATTI) 50-1000 | daily with meals. | | | | | | | MG per tablet | | | | | | | + + +-------+---------+------+------+-------+ | ibuprofen | Take 200 mg by mouth | | | | | Activ | | (ADVIL,MOTRIN) 200 | every 6 (six) hours | | | | | e | | MG tablet | as needed. | | | | | | + + +-------+---------+------+------+-------+ Active Problems + + + | Problem | Noted Date | + + + | DM type 2 (diabetes mellitus, type 2) | 06/17/2012 | + + + | HTN (hypertension) | 06/17/2012 | + + + | Dyslipidemia | 06/17/2012 | + + + | Unspecified hypothyroidism | 06/17/2012 | + + + | Skin and mouth lesions | 06/17/2012 | + + + Social History + +-------+ +--------+------+ | Tobacco Use | Types | Packs/Day | Years | Date | | | | | Used | | + +-------+ +--------+------+ | Never Smoker | | | | | + +-------+ +--------+------+ + + +---------+ + | Alcohol Use | Drinks/We | oz/Week | Comments | | | ek | | | + + +---------+ + | No | | | | + + +---------+ + + + + | Sex Assigned at | Date Recorded | | | | + + + | Not on file | | + + + Last Filed Vital Signs + + + + | Vital Sign | Reading | Time Taken | + + + + | Blood Pressure | 152/78 | 06/20/2012 11:19 AM PDT | + + + + | Pulse | 69 | 06/20/2012 11:19 AM PDT | + + + + | Temperature | 35.2 C (95.4 F) | 06/20/2012 11:19 AM PDT | + + + + | Respiratory Rate | 16 | 06/20/2012 11:19 AM PDT | + + + + | Oxygen Saturation | 98% | 06/20/2012 11:19 AM PDT | + + + + | Inhaled Oxygen | - | - | | Concentration | | | + + + + | Weight | 93.4 kg (205 lb 14.6 | 06/17/2012 9:57 PM PDT | | | oz) | | + + + + | Height | 165.1 cm (5' 5") | 06/17/2012 1:03 AM PDT | + + + + | Body Mass Index | 34.27 | 06/17/2012 9:57 PM PDT | + + + + Plan of Treatment Not on file Results Not on filefrom Last 3 Months Insurance + +--------+ +------+-------+ + | Payer | Benefi | Subscriber | Type | Phone | Address | | | t Plan | ID | | | | | | / | | | | | | | Group | | | | | + +--------+ +------+-------+ + | [employer] [place] | MUTUAL | [id number] | | | | | | [place] | | | | | | | [place] | | | | | + +--------+ +------+-------+ + | MEDICARE | MEDICA | [id number] | | | [address] | | | RE | | | | [place] [address] | | | IP-OP | | | | | + +--------+ +------+-------+ + + +--------+ +--------+ + + | Guarantor Name | Accoun | Relation to | Date | Phone | Billing Address | | | t Type | Patient | of | | | | | | | | | | + +--------+ +--------+ + + | MATILDA DUMONT | Person | Self | [birth year] | Home: | [address] | | | al/Fam | | 1946 | [phone] | [place] | | | zane | | | [address] | [address] | + +--------+ +--------+ + +
--- OUTSIDE RECORDS SUMMARY | ~2018-07-19 | XMS | Encounter Summary ---
Demographics + + + | Address | [address] | | | [place] [address] | + + + | Home Phone | | + + + | Preferred Language | Unknown | + + + | Marital Status | Single | + + + | Confucianism Affiliation | PEN | + + + [...] [place] | | | | | [address] | | + + + + + Care Team Providers + +------+ + | Care Geospatial Technician Name | Role | Phone | + +------+ + | Kaleb Ryder DO | PCP | | + +------+ + Encounter Details +--------+ + + + + | Date | Type | Department | Care Team | Description | +--------+ + + + + | 08/07/ | Documentati | Dermatology | Kaleb Ryder DO | | | 2016 | on | Medical at [facility] 16th | [facility] | | | | | Floor [address] | Internal Medicin | | | | | Ave Mail Code: | [address] [facility] | | | | | [facility] Center for | [place] [address] | | | | | Health and Healing, | [phone] | | | | | 16th floor | | | | | | [place], [place] | | | | | | [address] | | | | | | [phone] | | | +--------+ + + + [...]
--- OUTSIDE RECORDS SUMMARY | ~2018-07-19 | XMS | Encounter Summary ---
Demographics + + + | Address | [address] | | | [place] [address] | + + + | Home Phone | | + + + | Preferred Language | Unknown | + + + | Marital Status | Single | + + + | Restoration Affiliation | PEN | + + + [...] [place] | | | | | [address] | | + + + + + Care Team Providers + +------+ + | Care Systems Programmer Analyst Name | Role | Phone | [...] | | 2014 | | Medical at [facility] 16 | [address] | | | | | Floor [address] | [place], [place] | | | | | Ave Mail Code: | [address] | | | | | [facility] | [phone] | | | | | Health and Healing, | | | | | | 16 floor | | | | | | [place], [place] | | | | | | [address] | | | | | | [phone] | | | +--------+ + + + [...]
--- OUTSIDE RECORDS SUMMARY | ~2018-07-19 | XMS | Encounter Summary ---
Demographics + + + | Address | [address] | | | [place] [address] | + + + | Home Phone | | + + + | Preferred Language | Unknown | + + + | Marital Status | Single | + + + | Latter-Day Affiliation | PEN | + + + [...] [place] | | | | | [address] | | + + + + + Care Team Providers + +------+ + | Care Assistant Dean Of Students Name | Role | Phone | + +------+ + | Kaleb Ryder | PCP | | + +------+ + Reason for Visit + + + | Reason | Comments | + + + | Medication requested | | + + + Encounter Details +--------+ + + + + | Date | Type | Department | Care Team | Description | +--------+ + + + + | 03/15/ | Telephone | Dermatology | Radha Barillas MD | Medication requested | | 2015 | | Medical at [facility] 16 | [address] | | | | | Floor [address] | [place], [place] | | | | | Ave Mail Code: | [address] | | | | | [facility] | [phone] | | | | | Health and Healing, | | | | | | 16th floor | | | | | | [place], [place] | | | | | | [address] | | | | | | [phone] | | | +--------+ + + + [...]
--- OUTSIDE RECORDS SUMMARY | ~2018-07-19 | XMS | Encounter Summary ---
Demographics + + + | Address | [address] | | | [place] [address] | + + + | Home Phone | | + + + | Preferred Language | Unknown | + + + | Marital Status | Single | + + + | Yazidi Affiliation | PEN | + + + | Race | White | + + + | Ethnic Group | Not or | + + + Author + + + | Author | [facility] | + + + | Organization | [facility] | + + + | Address | Unknown | + + + | Phone | Unavailable | + + + Support + + + + + | Name | Relationship | Address | Phone | + + + + + | Kenton Arshad | [address] | [address] | | | | | [place] | | | | | [address] | | + + + + + Care Team Providers + +------+ + | Care Drilling Assistant Name | Role | Phone | + +------+ + | Kaleb Ryder DO | PCP | | + +------+ + Encounter Details +--------+ + + + + | Date | Type | Department | Care Team | Description | +--------+ + + + + | 10/03/ | Solution Advisor | Rheumatology at | [place], | Bullous pemphigoid | | 2015 | | [address] | [address] | (Primary Dx) | | | | [address] | [facility] | | | | | [facility] | [place], [place] | | | | | Mailcode: OP09 | [address] | | | | | [address], | [phone] | | | | | 4th Floor | | | | | | [place], [place] | | | | | | [address] | | | | | | [phone] | | | +--------+ + + + [...]
--- OUTSIDE RECORDS SUMMARY | ~2018-07-19 | XMS | Encounter Summary ---
Demographics + + + | Address | [address] | | | [place] [address] | + + + | Home Phone | | + + + | Preferred Language | Unknown | + + + | Marital Status | Single | + + + | Hindu Affiliation | PEN | + + + | Race | White | + + + | Ethnic Group | Not or | + + + Author + + + | Author | [facility] | + + + | Organization | [facility] | + + + | Address | Unknown | + + + | Phone | Unavailable | + + + Support + + + + + | Name | Relationship | Address | Phone | + + + + + | Kenton Arshad | [address] | [address] | | | | | [place] | | | | | [address] | | + + + + + Care Team Providers + +------+ + | Care Audio Visual Tech Name | Role | Phone | + +------+ + | Kaleb Ryder DO | PCP | | + +------+ + Encounter Details +--------+ + + + + | Date | Type | Department | Care Team | Description | +--------+ + + + + | 08/13/ | Documentati | Dermatology | Radha Barillas MD | | | 2014 | on | Medical at [facility] 16th | [address] | | | | | Floor [address] | [place], [place] | | | | | Michelle Mail Code: | [address] | | | | | 16D [facility] | [phone] | | | | | Health and Healing, | | | | | | 16th floor | | | | | | [place], [place] | | | | | | [address] | | | | | | [phone] | | | +--------+ + + + [...]
--- OUTSIDE RECORDS SUMMARY | ~2018-07-19 | XMS | Encounter Summary ---
Demographics + + + | Address | [address] | | | [place] [address] | + + + | Home Phone [...] + + + | Author | [facility] | + + + | Organization | [facility] | + + + | Address | Unknown | + + + | Phone | Unavailable | + + + Support + + + + + | Name | Relationship | Address | Phone | + + + + + | Kenton Arshad | [address] | [address] | | | | | [place] | | | | | [address] | | + + + + + Care Team Providers + +------+ + | Care Health Physicist Name | Role | Phone | + +------+ + | Aleksey Kaleb | PCP | | + +------+ + Encounter Details +--------+------+ + + + | Date | Type | Department | Care Team | Description | +--------+------+ + + + | 05/23/ | Lab | Laboratory at [facility] | | Long-term use of | | 2015 | | [address] | | high-risk medication | | | | [place], [place] | | | | | | [address] | | | | | | [phone] | | | +--------+------+ + + + Social History + +-------+ [...] | + +--------+ + + + | G-6-PD (G6PD, | Routin | 05/24/2015 | Long-term use of | Results for this | | QUANT), BLOOD | e | 3:23 PM | high-risk medication | procedure are in the | | | | PDT | | results section. | + +--------+ + + + documented in this encounter Results G-6-PD (G6PD, QUANT), BLOOD (05/24/2015 3:23 PM PDT) + + + + + + | Component | Value | Ref Range | Performed | Pathologist | | | | | At | Signature | + + + + + + | G-6-PD | 11.7Comment: Performed | 9.9 - 16.6 U/g | [facility] | | | | by [employer],[address] | Hb | REG UNIV | | | | [facility] | | PTH - [facility] | | | | [address] | | | | | | [phone] | | | | | | Joseph forbes, | | | | | | Ann WARNER. Director | | | | + + + + + + + + | Specimen | + + | Blood - Blood | + + + + + + + | Performing | Address | City/State/Zipcode | Phone Number | | Organization | | | | + + + + + | [facility] | [address] | [place], [place] | | | UNIV PTH - [facility] | | [address] | | + + + + + documented in this encounter Visit Diagnoses + + | Diagnosis | + + | Long-term use of high-risk medication | + + documented in this encounter"
--- OUTSIDE RECORDS SUMMARY | ~2018-07-19 | XMS | Encounter Summary ---
Demographics + + + | Address | [address] | | | [place] [address] | + + + | Home Phone | | + + + | Preferred Language | Unknown | + + + | Marital Status | Single | + + + | Evangelical Affiliation | PEN | + + + | Race | White | + + + | Ethnic Group | Not or | + + + Author + + + | Author | [facility] | + + + | Organization | [facility] | + + + | Address | Unknown | + + + | Phone | Unavailable | + + + Support + + + + + | Name | Relationship | Address | Phone | + + + + + | Kenton Arshad | [address] | [address] | | | | | [place] | | | | | [address] | | + + + + + Care Team Providers + +------+ + | Care Specimen Processor Name | Role | Phone | + +------+ + | Aleksey Kaleb DO | PCP | | + +------+ + Encounter Details +--------+ + + + + | Date | Type | Department | Care Team | Description | +--------+ + + + + | 04/12/ | Hospital | Registration HOV | | | | 2014 | Encounter | [address] | | | | | | [facility] | | | | | | [place], [place] | | | | | | [address] | | | +--------+ + + + [...]
--- OUTSIDE RECORDS SUMMARY | ~2018-07-19 | XMS | Encounter Summary ---
Demographics + + + | Address | [address] | | | [place] [address] | + + + | Home Phone | | + + + | Preferred Language | Unknown | + + + | Marital Status | | + + + | Evangelical Affiliation | [phone] | + + + | Race | Unknown | + + + | Ethnic Group | Unknown | + + + Author + + + | Author | [facility] | | | and Tomana | + + + | Organization | [facility] | | | and [...] Team Providers + +------+ + | Care Standards Analyst Name | Role | Phone | [...] [address] | | | | | | [place], | | | | | | [place] [address] | | | | | | [phone] | | | +--------+--------+ + + + [...]
--- OUTSIDE RECORDS SUMMARY | ~2018-07-19 | XMS | Encounter Summary ---
Demographics + + + | Address | [address] | | | [place] [address] | + + + | Home Phone [...] [place] | | | | | [address] | | + + + + + Care Team Providers + +------+ + | Care Education And Training Manager Name | Role | Phone | [...] | 2016 | on | Medical at [facility] 16th | [address] | | | | | Floor [address] | [place], [place] | | | | | Ave Mail Code: | [address] | | | | | [facility] | [phone] | | | | | Health and Healing, | | | | | | 16 floor | | | | | | [place], [place] | | | | | | [address] | | | | | | [phone] | | | +--------+ + + + [...]
--- OUTSIDE RECORDS SUMMARY | ~2018-07-19 | XMS | Encounter Summary ---
Demographics + + + | Address | [address] | | | [place] [address] | + + + | Home Phone [...] Author + + + | Author | [facility] | + + + | Organization | [facility] | + + + | Address | Unknown | + + + | Phone | Unavailable | + + + Support + + + + + | Name | Relationship | Address | Phone | + + + + + | Kenton Arshad | [address] | [address] | | | | | [place] | | | | | [address] | | + + + + + Care Team Providers + +------+ + | Care Speech And Drama Teacher Name | Role | Phone | + +------+ + | Aleksey Kaleb DO | PCP | | + +------+ + Reason for Visit + + + | Reason | Comments | + + + | Follow-up visit | BP follow up | + + + Consultation (Routine) +--------+ + + + + + | Status | Reason | Specialty | Diagnoses / | Referred By | Referred To | | | | | Procedures | Contact | Contact | +--------+ + + + + + | Closed | Specialty | Dermatology | Procedures | Drm Med | Drm Med Ch | | | Services | | eval & | [facility] | [address] | | | Required | | treat | [address] | [address] | | | | | | Mail Code: | Mail Code: | | | | | | [facility] | [facility] Center | | | | | | [facility] | | | | | | Health and | and Healing, | | | | | | Healing, | 16th floor | | | | | | 16th floor | [place], [place] | | | | | | [place], [place] | [address] | | | | | | [address] | Phone: | | | | | | Phone: | [phone] | | | | | | [phone] | Fax: | | | | | | Fax: | [phone] | | | | | | [phone] | | +--------+ + + + + + Encounter Details +--------+---------+ + + + | Date | Type | Department | Care Team | Description | +--------+---------+ + + + | 11/21/ | Office | Dermatology | Radha Barillas MD | Benign mucous | | 2016 | Visit | Medical at [facility] 16 | [address] | membrane pemphigoid | | | | Floor [address] | [place], [place] | (Primary Dx) | | | | Ave Mail Code: | [address] | | | | | [facility] | [phone] | | | | | Health and Healing, | | | | | | 16 floor | | | | | | [place], [place] | | | | | | [address] | | | | | | [phone] | | | +--------+---------+ + + + [...] +---------+ + + | Blood Pressure | 130/86 | 11/22/2015 2:25 PM | | | | | PDT | | + +---------+ + + | Pulse | 66 | [...] in this encounter Patient Instructions Patient Instructions Aletha Monzon MD - 11/22/2015 3:06 PM PDTIMURAN (Azathiopr ine) Dermatology patient information How does this medication work? Azathioprine suppresses your immune system by decreasing the amount of B-cells and T-cells (part of the family of white blood cells) your body makes. What is this medication commonly used for? ? It is used to treat lupus, vasculitis, dermatomyositis, severe atopic dermatitis, and oth er inflammatory disorders. What are some things I need to know, or do, while I am on this medication? ? Notify your provider if you develop fevers or nausea and vomiting as these can be signs o f a serious allergic reaction or infection. ? This medication may take up to 12 weeks to achieve noticeable benefit ? Use control you trust to avoid getting while on this medication. ? should be avoided while taking this medication. ? You will need regular blood work while you are on this medication to monitor your blood c ells. o If you have not had blood work in 6 months, please contact your provider. ? Live vaccinations should be avoided while taking this medication. ? Discuss your vaccine history with your provider as there may be reason to update some vac cines (such as pneumonia (Pneumovax), Hepatitis B, or the Herpes Zoster (Zostavax) vaccine i n some cases) before starting this medication. ? Talk to your provider before starting any other prescription and/or over the counter medi cations while using this drug. What are some side effects of this medication? ? Upset stomach, nausea, abdominal pain, and diarrhea. Make sure you are taking this medic ation with food. If symptoms persist, contact your provider. ? Notify your provider if vomiting occurs. ? Notify your provider if you develop fever, rash, easy bruising or bleeding, or signs of a n infection. ? Prolonged use of this medication may increase your risk of developing a cancer. Please notify your provider with questions or concerns. Please also refer to the medicatio n package insert for additional information. documented in this encounter Progress Notes Radha Barillas MD - 11/23/2015 1:45 PM PDTI personally interviewed the patient, performed the pertinent parts of the physical examination and personally formulated the plan with the resident. I agree with the residents documentation and have documented any additions or ex ceptions. Radha Barillas MD MSCE Spreader Box Operator of Dermatology [facility] letha Monzon MD - 11/22/2015 2:50 PM PDTIAletha MD, resident of dermatology, have rev iewed this note for accuracy. aylie Pate LPN - 11/22/2015 2:27 PM PDTFormatting of this note might be different from the origina lMegan Quintana LPN, am functioning as a scribe for Radha Barillas M.D., Professor, [facility] ent of Dermatology. DERMATOLOGY FOLLOW UP PATIENT VISIT Last Appointment in [facility] was on 08/16/15 at 2:00 pm with Radha Barillas MD. Dx/Rx: BP/MMP --s/p [...] daily. 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 female who presents for follow up for bullous pemphigoid/mu cous membrane pemphigoid overlap and a skin full body check. Since last visit she has been t aking dapsone 150 mg daily. Tolerating this dose of dapsone well. She denies hand or foot we akness or changes in sensation. Her H and H was normal on last check. She does not feel ti red. She reports that her oral blisters are still present and she occasionally has a hard time s wallowing She's had some weight gain. She denies eye discomfort or dryness, no sores in her nose or in her vagina. She reports active areas of BP on her posterior neck and her bilateral forearms. She doesn 't regualarly apply fluocinonide because she doesn't want to get her pillows messy. She followed up with endocrinology and they do not think that anything needs to be done abo ut her PTH/parathyroids. No other skin or systemic complaints. ROS: +dysphagia, odynophagia, weight gain and normal appetite Initial visit Started May of 2013 initially [...] HISTORY: First grandchild born spring 2014 in [place] Lives in [facility] and enjoys the annual round up MEDICATIONS: Current Medication List Name Sig ATENOLOL 50 MG TABLET ATORVASTATIN 10 MG TABLET Take 10 mg by mouth once daily. VITAMIN D-3 ORAL Take 1,000 Units by mouth. CLONIDINE 0.2 MG/24 HR WEEKLY TRANSDERMAL PATCH CLOTRIMAZOLE 10 MG KRUNAL Take 1 tablet by mouth three times daily. Allow to dissolve for 1 5-30 minutes. DAPSONE 100 MG TABLET Take 1 1/2 pills daily. FLUOCINONIDE 0.05 % TOPICAL OINTMENT Apply [...] ALLERGIES: No Known Allergies PHYSICAL EXAMINATION: BP 130/86 | Pulse 66 | RR 16 The patient is a well appearing female [...] normal limits except for the following: -- the gingiva and buccal mucosa are erythematous and desquamating. There is no normal muc marcela on the gingiva or the buccal mucosa -- ill-defined lichenified scaly plaques on the posterior neck with similar papules on left dorsal arm and left chest 05/21/2014 DIF: FINDINGS: There is moderately intense [...] 1. BP/MMP overlap, with poorly controlled oral disease and intermittent, minor cutaneous e ruption. She has failed several medications and is now using dapsone 150mg daily for her ora l disease, but with little to no improvement. -- Discussed with her transitioning to imuran (azathioprine) and/or pursuit of Rituxan via rheumatology in [place] or [facility]. Will work on pursuing rituxan and trying to find an MD near her home. On review, she had nothing life threatening when being administered the R ituxan. Will discuss possibility of lowering the infusion rate to help mitigate the sensatio n. -- Discontinue dapsone -- Will transition to TAC 0.1% cream and discontinue the fluocinonide ointment. Discussed the RBA of azathioprine (Imuran) and provided handout in AV[facility]. The most side effec ts are nausea, vomiting and diarrhea. Other rare but more serious side effects include mary carmen gnancy (SCCs, lymphomas), myelosuppression (neutropenia, agranulocytosis and pancytopenia), infections, teratogenicity, gastritis, pancreatitis and a hypersensitivity syndrome. The ri sk for myelosuppression correlates with thiopurine methyltransferase (TPMT) activity thus th is medication is contraindicated in patients with reduced or absent TPMT activity. 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
--- OUTSIDE RECORDS SUMMARY | ~2018-07-19 | XMS | Encounter Summary ---
Demographics + + + | Address | [address] | | | [place] [address] | + + + | Home Phone | | + + + | Preferred Language | Unknown | + + + | Marital Status | Single | + + + | Catholic Affiliation | PEN | + + [...] [place] | | | | | [address] | | + + + + + Care Team Providers + +------+ + | Care Webmethods Consultant Name | Role | Phone | + [...] | +--------+ + + + + | 02/22/ | Telephone | Dermatology | Radha Barillas MD | Discussion | | 2015 | | Medical at [facility] 16 | [address] | | | | | Floor [address] | [place], [place] | | | | | Ave Mail Code: | [address] | | | | | [facility] | [phone] | | | | | Health and Healing, | | | | | | 16 floor | | | | | | [place], [place] | | | | | | [address] | | | | | | [phone] | | | +--------+ + + + [...]
--- OUTSIDE RECORDS SUMMARY | ~2018-07-19 | XMS | Encounter Summary ---
Demographics + + + | Address | [address] | | | [place] [address] | + + + | Home Phone [...] + + | Author | [facility] | + + + | Organization | [facility] | + + + | Address | Unknown | + + + | Phone | Unavailable | + + + Support + + + + + | Name | Relationship | Address | Phone | + + + + + | Kenton Arshad | [address] | [address] | | | | | [place] | | | | | [address] | | + + + + + Care Team Providers + +------+ + | Care Maintenance Manager Name | Role | Phone | [...] | | 2016 | | Medical at [facility] 16th | [address] | | | | | Floor [address] | [place], [place] | | | | | Ave Mail Code: | [address] | | | | | [address] [facility] | [phone] | | | | | Health and Healing, | | | | | | 16th floor | | | | | | [place], [place] | | | | | | [address] | | | | | | [phone] | | | +--------+ + + + [...]
--- OUTSIDE RECORDS SUMMARY | ~2018-07-19 | XMS | Encounter Summary ---
Demographics + + + | Address | [address] | | | [place] [address] | + + + | Home Phone | | + + + | Preferred Language | Unknown | + + + | Marital Status | Single | + + + | Shinto Affiliation | PEN | + + + [...] [place] | | | | | [address] | | + + + + + Care Team Providers + +------+ + | Care Security Sales Consultant Name | Role | Phone | + +------+ + | Benmelinda Kaleb | PCP | | + +------+ + Reason for Visit + + + | Reason | Comments | + + + | Examination Of Skin | follow up BP | + + + Encounter Details +--------+---------+ + + + | Date | Type | Department | Care Team | Description | +--------+---------+ + + + | 02/15/ | Office | Dermatology | Radha Barillas MD | Bullous pemphigoid | | 2016 | Visit | Medical at [facility] 16 | [address] | (Primary Dx) | | | | Floor [address] | [place], [place] | | | | | Ave Mail Code: | [address] | | | | | CH98D [facility] | [phone] | | | | | Health and Healing, | | | | | | 16 floor | | | | | | [place], [place] | | | | | | [address] | | | | | | [phone] | | | +--------+---------+ + + + [...] +---------+ + + | Blood Pressure | 130/80 | 02/15/2015 4:05 PM | | | | | PST | | + +---------+ + + | Pulse | 60 | 02/15/2015 4:05 PM | | | | | PST | | + +---------+ + + | Temperature | - | - | | + +---------+ + + | Respiratory Rate | 14 | 02/15/2015 4:05 PM | | | | | PST | | + +---------+ + + | [...] in this encounter Patient Instructions Patient Instructions Michaela Montez MD - 02/15/2015 4:42 PM PSTStop the oral Cellcept t ablets and start the oral solution. You will take 5 ml (one teaspoonful) twice daily. For the skin, continue with the topical Fluocinonide ointment once to twice daily as needed . documented in this encounter Progress Notes Radha Barillas MD - 02/16/2015 9:56 AM PSTATTENDING PHYSICIAN ATTESTATION I saw and examined the patient and discussed the case with the Fellow/Resident. I agree wi th their findings and plan as written. 69 yr old female with BP and MMP with continued severe oral disease. Gingiva are totally e roded. There are scattered erosions on the bilateral buccal mucosa. Eating for her is pain ful. She is very uncomfortable. Cannot swallow MMF. Will switch to MMF liquid. Will re-t ry for rituxan. Radha Barillas MD MSCE Primer Inserting Machine Adjuster of Dermatology [facility] mithMichaela MD - 02/15/2015 4:11 PM PST DERMATOLOGY FOLLOW UP PATIENT VISIT Last Appointment in [facility] [place] was on 09/21/14 at 1:30 pm with Radha Barillas MD. Dx/Rx: BP/MMP --MMF 1 gram BID start date 11/2014 --methotrexate 20mg q week (increased to 20 mg weekly July of 2014- d/c 11/2014) --fluocinonide ointment PRN --s/p minocycline 100mg BID (took from 05/2014 - July 2014, then d/c'd) --s/p IVIG x 3 doses. Skin improvement without MM improvement --rituxan June of 2014 -- had hives on face and stopped. Given in home town. HISTORY OF PRESENT ILLNESS: Matilda Arshad is a 69 y.o. female who presents for follow up for bullous pemphigoid/mu cous membrane pemphigoid overlap. She was started on Cellcept therapy in 11/2014. She report s that the pills are too big ("horse pills") and hard to swallow. She is crushing them in or earl to take them. She reports her mouth and throat continue to be the most bothersome areas. She was given topical dexamethasone swish and spit that she used for a while but did no lik e the taste and did not feel that it helped. She overall feels that her throat is not as sor e with the MMF. She also feels that the break outs on the skin have also decreased in number and frequency.She reports lesions on the bilateral palms and forearms. She is using Aloe Ve ra and Fluocinonide to the active sites. She had labs done on 02/05 (see media tab for report) including CBC, CMP and cholesterol th at was WNL (Calcium elevated at 10.7). She also reports continued weight loss. She is now do wn to 179 lbs (she was 217 lbs in the past). She reports giving up eating meat and has now j ust been eating vegetables. For her GERD she is taking ranitidine and another oral antiacid. For her hypercalcemia and hyperparathyroid she is not currently seeing an engineering assistant a nd is working on finding another one (the previous one moved). Her calcium from the most rec ent blood work was elevated at 10.7. She reports that the engineering assistant informed her she w ould likely need a parathyroidectomy. She overall feels okay and denies any other skin concerns. From prior note: Reports she has had a continuous sore throat for the past 3 years. Causes difficulty swallowing foods. When she takes her medication she has to take 2 pills at time t hroughout the day due to dyspepsia, but not dyspharia. Her main question regarding these sym ptoms is if they could be a sign of cancer. Denies feeling of throat feeling more constricte d. Describes throat to be more irritated, raw and painful. Has had an EGD in August of 2013 t hat did not reveal any signs of malignancy, but did support severe GERD. She reports that s he is not taking her GERD medications. ROS: +dysphagia, odynophagia, weight loss (stable since last appointment), low appetite PAST MEDICAL HISTORY: - diabetes mellitus - hypertension - hypothyroidism - h/o MRSA neck abscess - melanoma age 16 unknown depth - glaucoma - vit D deficiency - primary hyperparathyroidism - last DEXA T score -1.5 SOCIAL HISTORY: First grandchild born spring 2014 in [place] MEDICATIONS: Current Medication List Name Sig ATENOLOL [...] Take 88 mcg by mouth once daily. MYCOPHENOLATE MOFETIL 500 MG TABLET Take 2 tablets by mouth two times daily. Indications: r efactory MMP/BP RANITIDINE 300 MG TABLET Take 300 mg by mouth two times daily. SUCRALFATE 100 MG/ML ORAL SUSPENSION Take by mouth once daily. TIMOLOL MALEATE 0.5 % EYE DROPS 1 drop two times daily. ALLERGIES: No Known Allergies PHYSICAL EXAMINATION: BP 130/80 | Pulse 60 | RR 14 Well-developed, well-nourished female in no acute distress. Awake, alert and oriented. Pl easant and cooperative mood. A skin examination was performed including the hair, face, eyelids, lips, teeth, gums, orop harynx, neck, bilateral forearms, bilateral hands, and nails. Findings were within normal l imits except for the following: --left buccal mucosa with multiple superficial erythematous erosions and ulcerations -- Nelia tos taken today --rare erosions under the tongue, along the upper and lower gingiva with diffuse erythema - -Photos taken today --conjunctiva appear normal --bilateral forearms with rare small erythematous erosions; not intact vesicles or bullae a ppreciated 05/21/2014 DIF: FINDINGS: There is moderately intense [...] without any improvement in her oral disease. She was started on MMF in November 2014. She reports that she feels that it is helping with her sore throat and oral lesions. She also reports fewer s kin lesions as well. She reports difficulty with swallowing the tablets. --Switch MMF tablets to solution 200 mg/ml. Recommend she start taking MMF 5 ml (1 teaspoon ful, 1 gram) twice daily. --Continue dexamethasone swish and spit 3 times per day prn as tolerated --Continue clotrimazole troches 3 times a day while using the dexamethasone to prevent yeas t growth in the mouth as tolerated --Ok to use topical fluocinonide twice a day to spots on your body. --Labs from 02/05 - WNL (slightly elevated calcium). Will have PCP repeat labs in 1 month. --Discussed that the symptoms of hives and facial flushing that occured during her rituxima b infusion are not life threatening and should not preclude her from receiving the infusion again in the future. Will try again to work with insurance to allow Mrs. Arshad to have inf usions with Rituxin here at [facility]. 2. Hx of melanoma, unknown depth. Not addressed today. 3. Elevated PTH-currently being worked up by engineering assistant. She is working on finding a n engineering assistant and will likely need parathyroidectomy in th future. Most recent calcium at 10.7. 4. Dyspepsia -- continue current antiacids including ranitidine. 5. ?dysphagia -- likely 2/2 GERD based on prior EDG. No evidence of malignancy on EDG 1 ye ar ago. Continue to monitor RETURN VISIT: 3-4 months or sooner if needed Michaela Montez MD DERMATOLOGY MEDICAL AT [facility] 16TH FLOOR [address] [place] Mail Code: [address] [place] [address] documented in this e ncounter Plan of Treatment Not on filedocumented as of this encounter Visit Diagnoses + + | Diagnosis | + + | Bullous pemphigoid - Primary Pemphigoid | + + documented in this encounter
--- OUTSIDE RECORDS SUMMARY | ~2018-07-19 | XMS | Encounter Summary ---
Demographics + + + | Address | [address] | | | [place] [address] | + + + | Home Phone [...] [place] | | | | | [address] | | + + + + + Care Team Providers + +------+ + | Care Sales Development Manager Name | Role | Phone | [...] | 2014 | Visit | Medical at [facility] 16th | [address] | (Primary Dx); Mucous | | | | Floor [address] | [place], [place] | membrane | | | | Ave Mail Code: | [address] | pemphigoid; | | | | [address] for | [phone] | Encounter for | | | | Health and Healing, | | long-term (current) | | | | 16th floor | | use of other | | | | [place], [place] | | medications | | | | [address] | | | | | | [phone] | | | +--------+---------+ + + + [...] additions or ex ceptions. Radha Barillas MD Nuclear Powerplant Supervisor of Dermatology [facility] Ree Carrillo MD - 0 08/17/2014 4:25 PM PDT DERMATOLOGY Follow Up PATIENT VISIT Last Office Visit in [facility] was on 05/21/14 at 2:15 pm with [...] to have rituximab infusions done locally (near [place]). While receiving her first infusion on 07/04/2014, [...] First grandchild born 3 months ago in [place] MEDICATIONS: Current Medication List Name Sig ATENOLOL [...] in the future, will administer [facility]. --stop minocycline --continue methotrexate [...] atrophy. Another potential very serious risk with [facility] use is steroid withdrawal syndro me or [...] Elevated PTH --currently being worked up by cost estimator. RETURN VISIT: Return in 3-4 weeks. OK to double book on Wednesday afternoon in September. REE ARANDA MD Resident, Department of Dermatology [facility] documented in this enc ounter Plan of [...] + + | [facility] | | | [phone] | | LABORATORY - | | | [...] + + | [facility] | | | [phone] | | LABORATORY - | | | [...]
--- OUTSIDE RECORDS SUMMARY | ~2018-07-19 | XMS | Encounter Summary ---
Demographics + + + | Address | [address] | | | [place] [address] | + + + | Home Phone [...] Author + + + | Author | [facility] | + + + | Organization | [facility] | + + + | Address | Unknown | + + + | Phone | Unavailable | + + + Support + + + + + | Name | Relationship | Address | Phone | + + + + + | Kenton Arshad | [place] | [address] | | | | | [place] | | | | | [address] | | + + + + + Care Team Providers + +------+ + | Care Senior Solutions Engineer Name | Role | Phone | [...] | | 2014 | | Medical at [facility] 16 | [address] | (minocycline hcl 100 | | | | Floor [address] | [place], [place] | mg caps) | | | | Ave Mail Code: | [address] | | | | | CH19D [facility] | [phone] | | | | | Health and Healing, | | | | | | 16 floor | | | | | | [place], [place] | | | | | | [address] | | | | | | [phone] | | | +--------+--------+ + + + [...]
--- OUTSIDE RECORDS SUMMARY | ~2018-07-19 | XMS | Clinical Summary ---
Demographics + + + | Address | [address] | | | [place] [address] | + + + | Home Phone | | + + + | Preferred Language | Unknown | + + + | Marital Status | | + + + | Church Affiliation | 1028 | + + + | Race | Unknown | + + + | Ethnic Group | Unknown | + + + Author + + + | Author | [employer] | + + + | Organization | [facility] | + + + | Address | Unknown | + + + | Phone | Unavailable | + + + Support + + + + + | Name | Relationship | Address | Phone | + + + + + | Kenton Dumont | [place] | [address] | | | | | [place] | | | | | [address] | | + + + + + Care Team Providers + +------+ + | Care Cd Reactor Operator Name | Role | Phone | [...] + +--------+ +------+-------+ + | [employer] | [employer]UAL | [id number] | | | | | | [place] | | | | | | | [employer] | | | | | + +--------+ +------+-------+ + | MEDICARE | MEDICA | [id number] | | | [address] | | | RE | | | | [place] [address] | | | IP-OP | | | [...] | | al/Fam | | 1946 | [phone] [place] | | | zane | | | [phone] | [phone] | + +--------+ +--------+ + +
--- OUTSIDE RECORDS SUMMARY | ~2018-07-19 | XMS | Encounter Summary ---
Demographics + + + | Address | [address] | | | [place] [address] | + + + | Home Phone [...] [place] | | | | | [address] | | + + + + + Care Team Providers + +------+ + | Care Ui Developer With Angular [employer]s Name | Role | Phone | + +------+ + | Kaleb Ryder DO | PCP | | + +------+ + Encounter Details +--------+ + + + + | Date | Type | Department | Care Team | Description | +--------+ + + + + | 10/03/ | Intensive Care Nurse | Rheumatology at | [facility]y [facility], | Bullous pemphigoid | | 2015 | | [facility] | MD [address] | (Primary Dx) | | | | [address] | [facility] | | | | | [facility] | [place], [place] | | | | | Mailcode: [id number] | [address] | | | | | [facility], | [phone] | | | | | 4th Floor | | | | | | [place], [place] | | | | | | [address] | | | | | | [phone] | | | +--------+ + + + [...]
--- OUTSIDE RECORDS SUMMARY | ~2018-07-19 | XMS | Clinical Summary ---
Demographics + + + | Address | [address] | | | [place] [address] | + + + | Home Phone | | + + + | Preferred Language | Unknown | + + + | Marital Status | | + + + | Protestant Affiliation | 1028 | + + + | Race | Unknown | + + + | Ethnic Group | Unknown | + + + Author + + + | Author | [facility] | | | and [place] | + + + | Organization | [facility] | | | and Tomana | [...] Team Providers + +------+ + | Care Front Edger Name | Role | Phone | + +------+ + | Kaleb Ryder DO | PP | | + +------+ + Allergies + + + + + + | Active Allergy | Reactions | Severity | Noted | Comments | | | | | Date | | + + + + + + | Ciprofloxacin | Rash | Medium | 05/10/20 | | | | | | 13 | | + + + + + + | Shellfish | Other (See | Medium | 07/16/19 | Sneezed and turns | | | Comments), | | 18 | red. | | | Sensitivity | | | | + + + + + + Medications + + + +---------+------+------+-------+ | Medication | Sig | Dispensed | Refills | Star | End | Statu | | | | | | t | Date | s | | | | | | Date | | | + + + +---------+------+------+-------+ | metoprolol | Take 100 mg by mouth | | 0 | | | Activ | | succinate | Daily. | | | | | e | | (TOPROL-XL) 100 mg | | | | | | | | ER tablet | | | | | | | + + + +---------+------+------+-------+ | insulin glargine | Inject 58 Units | | 0 | | | Activ | | (LANTUS SOLOSTAR) | under the skin | | | | | e | | 100 units/mL | nightly. | | | | | | | injection (pen) | | | | | | | + + + +---------+------+------+-------+ | latanoprost | Place 1 drop into | | 0 | | | Activ | | (XALATAN) 0.005% | both eyes nightly. | | | | | e | | ophthalmic solution | | | | | | | + + + +---------+------+------+-------+ | insulin aspart | Inject 5-10 Units | | 0 | | | Activ | | (NOVOLOG FLEXPEN) | under the skin 3 | | | | | e | | 100 units/mL | times daily (before | | | | | | | injection pen | meals). | | | | | | + + + +---------+------+------+-------+ | levothyroxine | Take 88 mcg by mouth | | 0 | | | Activ | | (SYNTHROID) 88 mcg | every morning | | | | | e | | tablet | (before breakfast). | | | | | | + + + +---------+------+------+-------+ | Cholecalciferol | Take 2,000 Units by | | 0 | | | Activ | | (VITAMIN D3) 2000 | mouth Daily. | | | | | e | | units CHEW | | | | | | | + + + +---------+------+------+-------+ | timolol maleate | Place 1 drop into | | 0 | | | Activ | | (TIMOPTIC) 0.5% | both eyes 2 times | | | | | e | | ophthalmic solution | daily. | | | | | | + + + +---------+------+------+-------+ | nitroglycerin | Take one tablet | 25 | 11 | 07/0 | | Activ | | (NITROSTAT) 0.4 mg | under tongue as | tablet | | 5/20 | | e | | SL tablet | needed for chest | | | 18 | | | | | pain, may repeat | | | | | | | | every 5 minutes up | | | | | | | | to 3 doses. If no | | | | | | | | relief after 3rd | | | | | | | | dose, call 911. | | | | | | + + + +---------+------+------+-------+ | aspirin 81 mg | Take 1 tablet by | 90 | 3 | 07/0 | | Activ | | chewable tablet | mouth Daily. | tablet | | 5/20 | | e | | | | | | 18 | | | + + + +---------+------+------+-------+ | brimonidine | | | 0 | 11/0 | | Activ | | (ALPHAGAN) 0.2% | | | | 6/20 | | e | | ophthalmic solution | | | | 18 | | | + + + +---------+------+------+-------+ | telmisartan | Take 1 tablet by | 90 | 3 | 12/1 | | Activ | | (MICARDIS) 80 MG | mouth Daily. | tablet | | 0/20 | | e | | tablet | | | | 18 | | | + + + +---------+------+------+-------+ | | Take 1 tablet by | 30 | 3 | 02/1 | | Activ | | hydroCHLOROthiazide | mouth Daily. | tablet | | /20 | | e | | 25 mg tablet | | | | 19 | | | + + + +---------+------+------+-------+ | clopidogrel | Take 1 tablet by | 60 | 0 | 03/1 | | Activ | | (PLAVIX) 75 mg | mouth Daily. Stop | tablet | | /20 | | e | | tablet | clopidogrel on | | | 19 | | | | | 7//19 | | | | | | + + + +---------+------+------+-------+ | atorvaSTATin | Take 1 tablet by | 90 | 1 | 04/2 | | Activ | | (LIPITOR) 40 mg | mouth nightly. | tablet | | 2/20 | | e | | tablet | | | | 19 | | | + + + +---------+------+------+-------+ Active Problems + + + | Problem | Noted Date | + + + | STEMI involving right coronary artery | 07/15/2017 | + + + | Essential hypertension | 07/15/2017 | + + + | Type 2 diabetes mellitus, with long-term current use of insulin | 07/15/2017 | + + + | Primary open angle glaucoma (POAG) | 07/15/2017 | + + + | Hypothyroidism | 07/15/2017 | + + + | Bullous pemphigoid | 07/15/2017 | + + + | Dyslipidemia | 07/15/2017 | + + + Encounters +--------+ + + + + | Date | Type | Specialty | Care Team | Description | +--------+ + + + + | 07/14/ | Abstract | | Vern Valdivia MD | | | 2019 | | | | | +--------+ + + + + | 05/30/ | Refill | | Vern Valdivia MD | Medication Refill | | 2018 | | | | | +--------+ + + + + | 04/28/ | Telephone | | Vern Vadlivia MD | Results | | 2018 | | | | | +--------+ + + + + | 04/26/ | Office | | Vern Valdivia MD | Dyslipidemia | | 2019 | Visit | | | (Primary Dx); | | | | | | Essential | | | | | | hypertension | +--------+ + + + + from Last 3 Months Social History + +-------+ +--------+------+ | Tobacco [...] + + + + | Temperature | 36.2 C (97.2 F) | 07/16/2017726 PDT | + + + + | Respiratory Rate | 18 | 04/26/2018912 PDT | + + + + | Oxygen Saturation | 97% | 07/16/2017726 PDT | + + + + | [...] 04/26/2018912 PDT | + + + + Plan of Treatment + + + + + | Health Maintenance | Due Date | Last Done | Comments | + + + + + | Hepatitis C | | | | | Screening | 5 | | | + + + + + | Diabetic Eye Exam | | | | | | 3 | | | + + + + + | Diabetic Foot Exam | | | | | | 3 | | | + + + + + | Vaccine: | | | | | Dtap/Tdap/Td (1 - | 4 | | | | Tdap) | | | | + + + + + | Breast Cancer | | | | | Screening (Ages | 5 | | | | 50-74) | | | | + + + + + | Colorectal Cancer | | | | | Screening | 5 | | | | (Colonoscopy) | | | | + + + + + | Vaccine: Zoster (2 | | 02/03/2010 | | | of 3) | 1 | | | + + + + + | Adult Annual | | | | | Wellness Visit | 8 | | | + + + + + | Hemoglobin A1c | | 07/08/2018 | | | Screening | 9 | | | + + + + + | Vaccine: | Completed | 12/04/2014, 11/15/2010 | | | Pneumococcal 65+ | | | | | Low/Medium Risk | | | | + + + + + | Vaccine: Influenza | Completed | 12/07/2017, 12/05/2013 | | + + + + + Implants + +-------+--------+ +--------+--------+--------+ | Implanted | Type | Area | Manufacture | Device | Shelf | Model | | | | | r | | Expira | / | | | | | | Identi | tion | Serial | | | | | | fier | Date | / Lot | + +-------+--------+ +--------+--------+--------+ | Xience Alpine DesImplanted: | Stent | N/A: | [id number] | | 09/02/ | / | | Qty: 1 on 07/15/2017 by | | Snyder | VASCULAR - | | 2020 | [id number] | | Vern Valdivia MD | | ry | ABVA | | | 40 | + +-------+--------+ +--------+--------+--------+ Procedures + +--------+ + + + | [...] +--------+ + + + | EXTERNAL LAB: CBC | Routin | 07/08/2018 | | Results for this | | | e | | | procedure are in the | | | | | | results section. | + +--------+ + + + | EXTERNAL LAB: TSH | Routin | 07/08/2018 | | Results [...] | + +--------+ + + + | BASIC METABOLIC | Routin | 04/26/2018 | Essential | Results for this | | PANEL | e | 10:35 PDT | hypertension | procedure are in the | | | | | | results section. | + +--------+ + + + from Last 3 Months Results External Lab: BUN (07/08/2018) + +-------+ + [...] + +-------+ + + + External Lab: TSH (07/08/2018) + +-------+ + + + | [...] + + | Blood | + + Lipid Panel (07/08/2018) + +-------+ + + [...] + + | Blood | + + Basic Metabolic Panel (04/26/2018 10:35 PDT) + [...] [facility] | [facility] | [facility] - | | | | | | LABORATORY | | + + + + + + | BUN | 14 | 9 - 23 mg/dL | [facility] | | [facility] | [facility] | | | | | | [facility] - | | | | | | LABORATORY | | + + + + + + | Creatinine | 1.15 (H) | 0.55 - 1.02 | [facility] | | | | | mg/dL | [facility] | | | | | [facility] | | | | | | [facility] - | | | | | | LABORATORY | | + + + + + + | eGFR if not | 46 (L) | >=60 | [facility] | | | | | mL/min/1.73m2 | [facility] | | [facility] | | | | | | [facility] - | | | | | | LABORATORY | | + + + + + + | Ca | 10.8 (H) | 8.7 - 10.4 | [facility] | | | | | mg/dL | [facility] | | | | | [facility] | | | | | | [facility] - | | | | | | LABORATORY | | + + + + + + | BUN/Creatin | 12.2 | | [facility] | | | ine Ratio | | | [facility] | | | [facility] | | [facility] [...] + + | [facility] [facility] | [address] | [place] | [phone] | | [facility] | | [address] | | | - LABORATORY | | | | + + + + + from Last 3 Months Insurance + +--------+ +--------+ +---------+--------+ | Payer | Benefi | Subscriber | Effect | Phone | Address | Type | | | t Plan | ID | дмитрий | | | | | | / | | Dates | | | | | | Group | | | | | | + +--------+ +--------+ +---------+--------+ | MEDICARE | MEDICA | [id number] | 05/10/19 | [phone] | | Medica | | | RE | | 10-Pre | 5 | | re | | | PART A | | sent | | | | | | AND B | | | | | | + +--------+ +--------+ +---------+--------+ | [employer] [place] [employer] | UNITED | [id number] | 05/10/19 | [phone] | | Indemn | | | OF | | 10-Pre | 0 | | ity | | | [place] | | sent | | | | | | MDCR | | | | | | | | SUPPL | | | | | | + +--------+ +--------+ +---------+--------+ + +--------+ +--------+ + + | Guarantor Name | Accoun | Relation to | Date | Phone | Billing Address | | | t Type | Patient | of | | | | | | | | | | + +--------+ +--------+ + + | Matilda Arshad | Person | Self | [birth year] | [address] | | | al/Fam | | 1946 | [phone] | [place] | | | zane | | | [address] (Home) | [address] | + +--------+ +--------+ + + Advance Directives Patient has advance care planning documents, and code status on file. For more information, please contact:[facility] [place] [address] + + + + + | Code Status | Date | Date | Comments | | | Activated | Inactivated | | + + + + + | Full Code | 07/15/2017 | 07/16/2017 | | | | 8:02 | 13:40 | | + + + + +
--- OUTSIDE RECORDS SUMMARY | ~2018-07-19 | XMS | Encounter Summary ---
Demographics + + + | Address | [address] | | | [place] [address] | + + + | Home Phone | | + + + | Preferred Language | Unknown | + + + | Marital Status | Single | + + + | Episcopalian Affiliation | PEN | + + + | Race | White | + + + | Ethnic Group | Not or | + + + Author + + + | Author | [facility] | + + + | Organization | [facility] | + + + | Address | Unknown | + + + | Phone | Unavailable | + + + Support + + + + + | Name | Relationship | Address | Phone | + + + + + | Kenton Arshad | [address] | [address] | | | | | [place] | | | | | [address] | | + + + + + Care Team Providers + +------+ + | Care Api Product Manager Name | Role | Phone | [...] at [facility] 16th | [address] | | | | | Floor [address] | [place], [place] | | | | | Michelle Mail Code: | [address] | | | | | [facility] | [phone] | | | | | Health and Healing, | | | | | | 16th floor | | | | | | [place], [place] | | | | | | [address] | | | | | | [phone] | | | +--------+ + + + [...]
--- OUTSIDE RECORDS SUMMARY | ~2018-07-19 | XMS | Encounter Summary ---
Demographics + + + | Address | [address] | | | [place] [address] | + + + | Home Phone | | + + + | Preferred Language | Unknown | + + + | Marital Status | Single | + + + | Congregation Affiliation | PEN | + + + | Race | White | + + + | Ethnic Group | Not or | + + + Author + + + | Author | [facility] | + + + | Organization | [facility] | + + + | Address | Unknown | + + + | Phone | Unavailable | + + + Support + + + + + | Name | Relationship | Address | Phone | + + + + + | Kenton Arshad | [address] | [address] | | | | | [place] | | | | | [address] | | + + + + + Care Team Providers + +------+ + | Care Diet Aide Name | Role | Phone | + +------+ + | Kaleb Ryder DO | PCP | | + +------+ + Encounter Details +--------+ + + + + | Date | Type | Department | Care Team | Description | +--------+ + + + + | 08/07/ | Documentati | Dermatology | Kaleb Ryder DO | | | 2016 | on | Medical at [facility] 16th | [facility] | | | | | Floor [address] | Internal Medicin | | | | | Ave Mail Code: | [address] [facility] | | | | | CH16D Center for | [place] [address] | | | | | Health and Healing, | [phone] | | | | | 16th floor | | | | | | [place], [place] | | | | | | [address] | | | | | | [phone] | | | +--------+ + + + [...]
--- OUTSIDE RECORDS SUMMARY | ~2018-07-19 | XMS | Clinical Summary ---
Demographics + + + | Address | [address] | | | [place] [address] | + + + | Home Phone | | + + + | Preferred Language | Unknown | + + + | Marital Status | Single | + + + | Synagogue Affiliation | PEN | + + + [...] [place], [place] | | | | | [address] | | + + + + + Care Team Providers + +------+ + | Care Fish Hatchery Supervisor Name | Role | Phone | + +------+ + | Kaleb Ryder DO | PP | | + +------+ + Source Comments SHAR is fully live on both [facility] and [facility] Allergies No Known Allergies Medications + + [...] | | | | | | | [address] | | + +--------+ +--------+ + +--------+ | [employer] [place] | MUTUAL | [id number] | Effect | [phone] | MUTUAL OF | Indemn | | MEDICARE SUPPL | OF | | дмитрий | 0 | [place] | ity | | | [place] | | for | | PLAZA | | | | MEDICA | | all | | [place] | | | | RE | | dates | | [address] | | | | SUPPL | | [...] zane | | | 6 (Home) | [address] | + +--------+ +--------+ + +"
--- OUTSIDE RECORDS SUMMARY | ~2018-07-19 | XMS | Encounter Summary ---
Demographics + + + | Address | [address] | | | [place] [address] | + + + | Home Phone [...] + + + | Author | [facility] | + + + | Organization | [facility] | + + + | Address | Unknown | + + + | Phone | Unavailable | + + + Support + + + + + | Name | Relationship | Address | Phone | + + + + + | Kenton Arshad | [address] | [address] | | | | | [place] | | | | | [address] | | + + + + + Care Team Providers + +------+ + | Care Sap Architect Name | Role | Phone | [...] | Required | | treat | [address] | [address] | | | | | | Mail Code: | Mail Code: | | | | | | CH16D | CH16D Center | | | | | | [facility] | | | | | | Health and | and Healing, | | | | | | Healing, | 16th floor | | | | | | 16th floor | [place], [place] | | | | | | [place], [place] | [address] | | | | | | [address] | Phone: | | | | | | Phone: | [phone] | | | | | | [phone] | Fax: | | | | | | Fax: | [phone] | | | | | | [phone] | | +--------+ + + + + + Encounter Details +--------+---------+ + + + | Date | Type | Department | Care Team | Description | +--------+---------+ + + + | 11/21/ | Office | Dermatology | Radha Barillas MD | Benign mucous | | 2016 | Visit | Medical at [facility] 16 | [address] | membrane pemphigoid | | | | Floor [address] | [place], [place] | (Primary Dx) | | | | Ave Mail Code: | [address] | | | | [facility] | [phone] | | | | | Health and Healing, | | | | | | 16 floor | | | | | | [place], [place] | | | | | | [address] | | | | | | [phone] | | | +--------+---------+ + + + [...] or ex ceptions. Radha Barillas MD MSCE Cylinder Machine Operator Pulp Drier of Dermatology [facility] [place] letha Monzon MD - 11/22/2015 2:50 PM PDTIAletha MD, resident of dermatology, have rev iewed this note for accuracy. aylie Pate LPN - 11/22/2015 2:27 PM PDTFormatting of this note might be different from the origina lMegan Quintana LPN, am functioning as a scribe for Radha Barillas M.D., Professor, [facility] ent of Dermatology. DERMATOLOGY FOLLOW UP PATIENT VISIT Last Appointment in [facility] was on 08/16/15 at 2:00 pm with [...] HISTORY: First grandchild born spring 2014 in [place] Lives in [facility] and enjoys the annual round up [...] and/or pursuit of Rituxan via rheumatology in [place] or [facility]. 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
--- OUTSIDE RECORDS SUMMARY | ~2018-07-19 | XMS | Encounter Summary ---
Demographics + + + | Address | [address] | | | [place] [address] | + + + | Home Phone | | + + + | Preferred Language | Unknown | + + + | Marital Status | Single | + + + | Uatsdin Affiliation | PEN | + + + | Race | White | + + + | Ethnic Group | Not or | + + + Author + + + | Author | [facility] | + + + | Organization | [facility] | + + + | Address | Unknown | + + + | Phone | Unavailable | + + + Support + + + + + | Name | Relationship | Address | Phone | + + + + + | Kenton Arshad | [address] | [address] | | | | | [place] | | | | | [address] | | + + + + + Care Team Providers + +------+ + | Care Office Machines Wirer Name | Role | Phone | + +------+ + | Kaleb Ryder DO | PCP | | + +------+ + Reason for Referral Consultation (Routine) +--------+ + + + + + | Status | Reason | Specialty | Diagnoses / | Referred By | Referred To | | | | | Procedures | Contact | Contact | +--------+ + + + + + | Closed | Specialty | Endocrinology | Diagnoses | [place], | End Bone | | | Services | , Diabetes & | | Radha Jamison MD | Mineral Ppv | | | Required | Metabolism | Hypercalcemi | [address] | [address] | | | | | a | [address] | [address] | | | | | Procedures | [place], [place] | Road | | | | | CONSULT TO | [address] | Physicians | | | | | ENDOCRINOLOG | Phone: | Pavilion | | | | | Y | [phone] | Physicians | | | | | | Fax: | Pavilion | | | | | | [phone] | [place], [place] | | | | | | | [address] | | | | | | | Phone: | | | | | | | [phone] | | | | | | | Fax: | | | | | | | [phone] | +--------+ + + + + + Reason for Visit + + + | Reason | Comments | + + + | Examination Of Skin | f/up bullous pemphigoid | + + + Encounter Details +--------+---------+ + + + | Date | Type | Department | Care Team | Description | +--------+---------+ + + + | 05/23/ | Office | Dermatology | Radha Barillas MD | Bullous pemphigoid | | 2015 | Visit | Medical at [facility] 16 | [address] | (Primary Dx); | | | | Floor [address] | [facility] [place] | Long-term use of | | | | Ave Mail Code: | [address] | high-risk | | | | [address] | [phone] | medication; | | | | Health and Healing, | | Hypercalcemia | | | | 16 floor | | | | | | [facility] [place] | | | | | | [address] | | | | | | [phone] | | | +--------+---------+ + + + [...] + | Blood Pressure | 152/92 | 05/24/2015 2:14 PM | | | | | PDT | | + +---------+ + + | Pulse | 64 | 05/24/2015 2:14 PM | | | | | PDT [...] in this encounter Patient Instructions Patient Instructions Bella Zaman MD - 05/24/2015 3:03 PM PDTDAPSONE Dermatology patient information How does this medication [...] are deficient in an enzyme called G zgkuvq-3-Gghlruvhg-Dehydrogenase (G6PD). We will test your enzyme level [...] encounter Progress Notes Radha Barillas MD - 05/24/2015 8:55 PM PDTATTENDING PHYSICIAN ATTESTATION I saw and examined the patient and discussed the case with the Fellow/Resident. I agree wi th their findings and plan as written. Radha Barillas MD MSCE Supervisor Grading of Dermatology [facility] elBella joseph MD - 05/24/2015 4:58 PM PDTI have reviewed the scribe's note and made changes where appropria te. Bella Zaman MD PGY-3, Department of Dermatology [facility] Electronically signed by Bella Zaman MD at 05/23 8:59 PM PDTEricka Wilson - 05/24/2015 2:29 PM PDT I, Ericka Wilson ([facility]), am functioning as a scribe for Radha Barillas M.D., Professor, [facility] Dermat[facility]. DERMATOLOGY FOLLOW UP PATIENT VISIT Last Appointment in [facility] was on 09/21/14 at 1:30 pm with [...] for bullous pemphigoid/mu cous membrane pemphigoid overlap. Since last visit had switched to MMF solution from pills, but patient stopped using solution due to medication being too expensive. She reports that s he stopped both the dexamethasone and clotrimazole. Patient states that she has noticed no c hange in her oral lesions after stopping MMF. She is not doing anything to treat her oral mu cosa at this time. She reports that she is still having pain with eating but her weight is s table. Blisters are still present in the mouth today, and she breaks out on her scalp and fa ce. She states that she applies fluocinonide to the blisters daily prn to these areas. Patient has a history of melanoma. Today she has concerning spots on the right arm that is new and get easily traumatized. It is not painful and has not bled. She is seeking recommendations for a new it systems engineer for evaluation of her hyperparathy roidism. Prior note from 02/15/15: She was started on Cellcept therapy in 11/2014. She reports that the pills are too big ("ho rse pills") and hard to swallow. She is crushing them in order to take them. She reports her mouth and throat continue to be the most bothersome areas. She was given topical dexamethas one swish and spit that she used for a while but did no like the taste and did not feel that it helped. She overall feels that her throat is not as sore with the MMF. She also feels th at the break outs on the skin have also decreased in number and frequency.She reports lesion s on the bilateral palms and forearms. She is using Aloe Vera and Fluocinonide to the active sites. She [...] hyperparathyroid she is not currently seeing an it systems engineer a nd is working on finding another one (the previous one moved). Her calcium from the most rec ent blood work was elevated at 10.7. She reports that the it systems engineer informed her she w ould likely need a parathyroidectomy. From prior note: Reports she has had [...] loss (stable since last appointment), low appetite. PAST MEDICAL HISTORY: - diabetes mellitus - hypertension - hypothyroidism - h/o MRSA neck abscess - melanoma age 16 unknown depth - glaucoma - vit D deficiency - primary hyperparathyroidism - last DEXA T score -1.5 SOCIAL HISTORY: First grandchild born spring 2014 in [place] MEDICATIONS: Current Medication List Name Sig ATENOLOL [...] mcg by mouth once daily. MYCOPHENOLATE MOFETIL 200 MG/ML ORAL SUSPENSION 5 ml (1 gram) by mouth twice daily MYCOPHENOLATE MOFETIL 500 MG TABLET Take 2 tablets by mouth two times daily. Indications: r efactory MMP/BP RANITIDINE 300 MG TABLET Take 300 mg by mouth two times daily. SUCRALFATE 100 MG/ML ORAL SUSPENSION Take by mouth once daily. TIMOLOL MALEATE 0.5 % EYE DROPS 1 drop two times daily. ALLERGIES: No Known Allergies PHYSICAL EXAMINATION: BP 152/92 | Pulse 64 Well-developed, well-nourished female in no acute distress. Awake, alert and oriented. Pl easant and cooperative mood. A skin examination was performed including the scalp/hair, face, eyelids, lips, teeth, gums , oropharynx, neck, bilateral forearms, bilateral hands, and nails. Findings were within no rmal limits except for the following: --right and left buccal mucosa with multiple superficial erythematous erosions and ulcerati ons --rare erosions under the tongue bilaterally --palate clear --upper and lower gingiva with diffuse moderate erythema --conjunctiva and nasal mucosa appear normal --scalp with few small crusted erosions --posterior neck with ill defined pink, scaly lichenified plaque, no vesicles or bullae --R forearm with stuck on white verrucous papule 05/21/2014 DIF: FINDINGS: There is moderately intense [...] continue the MMF solution. She is now not using anything for her oral disease and does not feel she is any worse. She is using fluocinonide as needed for he r skin lesions prn. --Start dapsone 100mg PO pending G6PD level today. --Ok to continue topical fluocinonide twice a day to spots on your body. --Labs from 02/05 - WNL (slightly elevated calcium). Will have repeat labs [address] dapsone. External order slip given. --Discussed that the symptoms of hives and facial flushing that occured during her rituxima b infusion did not appear to be life threatening and should not preclude her from receiving the infusion again in the future. Unfortunately we are unable to get her approval to have he r infusion here at [facility]. She is unwilling to try --Will try again to work with insurance to allow Mrs. Arshad to have infusions with Rituxin here at [facility]. 2. Hx of melanoma, unknown depth. Not addressed today. 3. Elevated PTH --Dr. Barillas to refer to local it systems engineer, Dr. Sharpe --Most recent calcium at 10.7, asymptomatic 4. Dyspepsia --Continue ranitidine. 5. Dysphagia -- likely 2/2 GERD based on prior EDG. No evidence of malignancy on recent EDG and EGD 1 year ago. Continue to monitor. RETURN VISIT: 3-4 months or sooner if needed Ericka Wilson CMA Department of Dermatology [facility] 05/24/2015 document ed in this encounter Plan of Treatment Not on filedocumented as of this encounter Results G-6-PD (G6PD, QUANT), BLOOD (05/24/2015 3:23 PM PDT) + + + + + + | Component | Value | Ref Range | Performed | Pathologist | | | | | At | Signature | + + + + + + | G-6-PD | 11.7Comment: Performed | 9.9 - 16.6 U/g | [facility] | | | | by Cook Taste Eat,500 | Hb | REG UNIV | | | | David Garzon, [facility] | | PTH - [facility] | | | | [address] | | | | | | [phone].[employer]. | | | | | | Joseph [...] [facility] | [address] | [place], [place] | | | UNIV PTH - [facility] | | [address] | | + + + + + documented in this encounter Visit Diagnoses + + | Diagnosis | + + | Bullous pemphigoid - Primary Pemphigoid | + + | Long-term use of high-risk medication | + + | Hypercalcemia | + + documented in this encounter
--- OUTSIDE RECORDS SUMMARY | ~2018-07-19 | XMS | Encounter Summary ---
Demographics + + + | Address | [address] | | | [place] [address] | + + + | Home Phone [...] [place] | | | | | [address] | | + + + + + Care Team Providers + +------+ + | Care Shipping And Receiving Operator Name | Role | Phone | [...] | | 2015 | | Medical at [facility] 16 | [address] | | | | | Floor [address] | [place], [place] | | | | | Ave Mail Code: | [address] | | | | | CH16D [facility] | [phone] | | | | | Health and Healing, | | | | | | 16 floor | | | | | | [place], [place] | | | | | | [address] | | | | | | [phone] | | | +--------+ + + + [...]
--- OUTSIDE RECORDS SUMMARY | ~2018-07-19 | XMS | Encounter Summary ---
Demographics + + + | Address | [address] | | | [place] [address] | + + + | Home Phone [...] Author + + + | Author | [facility] | + + + | Organization | [facility] | + + + | Address | Unknown | + + + | Phone | Unavailable | + + + Support + + + + + | Name | Relationship | Address | Phone | + + + + + | Kenton Arshad | [address] | [address] | | | | | [place] | | | | | [address] | | + + + + + Care Team Providers + +------+ + | Care Software Development Manager Name | Role | Phone [...] | | 2015 | | Medical at [facility] 16 | [address] | | | | | Floor [address] | [place], [place] | | | | | Ave Mail Code: | [address] | | | | | CH75D [facility] | [phone] | | | | | Health and Healing, | | | | | | 16th floor | | | | | | [place], [place] | | | | | | [address] | | | | | | [phone] | | | +--------+ + + + [...]
--- OUTSIDE RECORDS SUMMARY | ~2018-07-19 | XMS | Encounter Summary ---
Demographics + + + | Address | [address] | | | [place] [address] | + + + | Home Phone | | + + + | Preferred Language | Unknown | + + + | Marital Status | Single | + + + | Rastafarian Affiliation | PEN | + + + [...] [place] | | | | | [address] | | + + + + + Care Team Providers + +------+ + | Care Plastic Block Boiler Reliner Name | Role | Phone | + +------+ + | Benmelinda Kaleb | PCP | | + +------+ + Reason for Visit + + + | Reason | Comments | + + + | Discussion | mycophenolate tablets | + + + Encounter Details +--------+ + + + + | Date | Type | Department | Care Team | Description | +--------+ + + + + | 04/28/ | Telephone | Dermatology | Radha Barillas MD | Discussion | | 2015 | | Medical at [facility] 16 | [address] | (mycophenolate | | | | Floor [address] | [place], [place] | tablets) | | | | Ave Mail Code: | [address] | | | | | [address] [facility] | [phone] | | | | | Health and Healing, | | | | | | 16th floor | | | | | | [place], [place] | | | | | | [address] | | | | | | [phone] | | | +--------+ + + + [...]
--- OUTSIDE RECORDS SUMMARY | ~2018-07-19 | XMS | Encounter Summary ---
Demographics + + + | Address | [address] | | | [place] [address] | + + + | Home Phone [...] Author + + + | Author | [facility] | + + + | Organization | [facility] | + + + | Address | Unknown | + + + | Phone | Unavailable | + + + Support + + + + + | Name | Relationship | Address | Phone | + + + + + | Kenton Arshad | [address] | [address] | | | | | [place] | | | | | [address] | | + + + + + Care Team Providers + +------+ + | Care Surveyor Oil Well Directional Name | Role | Phone | + +------+ + | Kaleb Ryder DO | PCP | | + +------+ + Encounter Details +--------+ + + + + | Date | Type | Department | Care Team | Description | +--------+ + + + + | 12/05/ | Documentati | Dermatology | Radha Barillas MD | | | 2014 | on | Medical at [facility] 16th | [address] | | | | | Floor [address] | [place], [place] | | | | | Michelle Mail Code: | [address] | | | | | CH16D [facility] | [phone] | | | | | Health and Healing, | | | | | | 16th floor | | | | | | [place], [place] | | | | | | [address] | | | | | | [phone] | | | +--------+ + + + [...]
--- OUTSIDE RECORDS SUMMARY | ~2018-07-19 | XMS | Encounter Summary ---
Demographics + + + | Address | [address] | | | [place] [address] | + + + | Home Phone [...] [place] | | | | | [address] | | + + + + + Care Team Providers + +------+ + | Care Stock Worker And Deliverer Name | Role | Phone | + [...] | +--------+ + + + + | 04/16/ | Telephone | Dermatology | Radha Barillas MD | Discussion | | 2016 | | Medical at [facility] 16 | [address] | | | | | Floor [address] | [place], [place] | | | | | Ave Mail Code: | [address] | | | | | CH16[facility] | [phone] | | | | | Health and Healing, | | | | | | 16 floor | | | | | | [place], [place] | | | | | | [address] | | | | | | [phone] | | | +--------+ + + + [...]
--- OUTSIDE RECORDS SUMMARY | ~2018-07-19 | XMS | Encounter Summary ---
Demographics + + + | Address | [address] | | | [place] [address] | + + + | Home Phone | | + + + | Preferred Language | Unknown | + + + | Marital Status | Single | + + + | Oriental Orthodox Affiliation | PEN | + + + | Race | White | + + + | Ethnic Group | Not or | + + + Author + + + | Author | [facility] | + + + | Organization | [facility] | + + + | Address | Unknown | + + + | Phone | Unavailable | + + + Support + + + + + | Name | Relationship | Address | Phone | + + + + + | Kenton Arshad | [address] | [address] | | | | | [place] | | | | | [address] | | + + + + + Care Team Providers + +------+ + | Care Family Lawyer Name | Role | Phone | + [...] | | 2015 | | Medical at [facility] 16 | [address] | (mycophenolate | | | | Floor [address] | [place], [place] | tablets) | | | | Ave Mail Code: | [address] | | | | | [address] [facility] | [phone] | | | | | Health and Healing, | | | | | | 16th floor | | | | | | [place], [place] | | | | | | [address] | | | | | | [phone] | | | +--------+ + + + [...]
--- OUTSIDE RECORDS SUMMARY | ~2018-07-19 | XMS | Encounter Summary ---
Demographics + + + | Address | [address] | | | [place] [address] | + + + | Home Phone [...] [place] | | | | | [address] | | + + + + + Care Team Providers + +------+ + | Care Ship Joiner Name | Role | Phone | + [...] | 2016 | Visit | Medical at [facility] 16 | [address] | (Primary Dx) | | | | Floor [address] | [place], [place] | | | | | Ave Mail Code: | [address] | | | | | CH76D [facility] | [phone] | | | | | Health and Healing, | | | | | | 16 floor | | | | | | [place], [place] | | | | | | [address] | | | | | | [phone] | | | +--------+---------+ + + + [...] ry for rituxan. Radha Barillas MD MSC[employer] Tow Motor Operator of Dermatology [facility] mithMichaela MD - 02/15/2015 4:11 PM PST DERMATOLOGY FOLLOW UP PATIENT VISIT Last Appointment in [facility] was on 09/21/14 at 1:30 pm with [...] hyperparathyroid she is not currently seeing an hydroelectric powerplant supervisor a nd is working on finding another one (the previous one moved). Her calcium from the most rec ent blood work was elevated at 10.7. She reports that the hydroelectric powerplant supervisor informed her she w ould likely need [...] HISTORY: First grandchild born spring 2014 in [place] MEDICATIONS: Current Medication List Name Sig ATENOLOL [...] have inf usions with Rituxin here at [facility]. 2. Hx of melanoma, unknown depth. Not addressed today. 3. Elevated PTH-currently being worked up by hydroelectric powerplant supervisor. She is working on finding a n hydroelectric powerplant supervisor and will likely need parathyroidectomy in th future. Most recent calcium at 10.7. 4. Dyspepsia -- continue current antiacids including ranitidine. 5. ?dysphagia -- likely 2/2 GERD based on prior EDG. No evidence of malignancy on EDG 1 ye ar ago. Continue to monitor RETURN VISIT: 3-4 months or sooner if needed Michaela Montez MD DERMATOLOGY MEDICAL AT [facility] 16TH FLOOR [address] [place] Mail Code: [place] [address] documented in this e ncounter Plan of Treatment Not on filedocumented as of this encounter Visit Diagnoses + + | Diagnosis | + + | Bullous pemphigoid - Primary Pemphigoid | + + documented in this encounter
--- OUTSIDE RECORDS SUMMARY | ~2018-07-19 | XMS | Clinical Summary ---
Demographics + + + | Address | [address] | | | [place] [address] | + + + | Home Phone | | + + + | Preferred Language | Unknown | + + + | Marital Status | | + + + | Latter-Day Affiliation | 1028 | + + + | Race | Unknown | + + + | Ethnic Group | Unknown | + + + Author + + + | Author | [facility] | | | and Tomana | + + + | Organization | [facility] | | | and Tomana [...] Team Providers + +------+ + | Care System Support Developer Name | Role | Phone | [...] | 04/28/ | Telephone | | Vern Valdivia MD | Results | | 2018 | [...] | VASCULAR - | | 2020 | /[id number] | | Vern Valdivia MD | | [...] mL/min/1.73m2 | [facility] | | | [facility] | | | MEDICAL | | | [...] | + + + + + | [facility] [facility] | [address] | [place] | [phone] | | [facility] | | [address] | | | - LABORATORY | | [...] +--------+ +---------+--------+ | MEDICARE | MEDICA | [id number] | 05/10/19 | [phone] | | Medica | | | RE | | 10-Pre | 5 | | re | | | PART A | | sent | | | | | | AND B | | | | | | + +--------+ +--------+ +---------+--------+ | [employer] [place] [employer] | UNITED | [id number] | 05/10/19 | [phone] | | Indemn | | | OF | | 10-Pre | 0 | | ity | | | [place] | | sent | | | | [...] zane | | | 6 (Home) | [address] | + +--------+ +--------+ + + Advance Directives Patient has advance care planning documents, and code status on file. For more information, please contact:[facility] [place] [address] + + + + + | Code Status | Date | Date | Comments | | | Activated | Inactivated | | + + + + + | Full Code | 07/15/2017 | 07/16/2017 | | | | 8:02 | 13:40 | | + + + + +
--- OUTSIDE RECORDS SUMMARY | ~2018-07-19 | XMS | Encounter Summary ---
Demographics + + + | Address | [address] | | | [place] [address] | + + + | Home Phone | | + + + | Preferred Language | Unknown | + + + | Marital Status | Single | + + + | Yazidism Affiliation | PEN | + + + | Race | White | + + + | Ethnic Group | Not or | + + + Author + + + | Author | [facility] | + + + | Organization | [facility] | + + + | Address | Unknown | + + + | Phone | Unavailable | + + + Support + + + + + | Name | Relationship | Address | Phone | + + + + + | Kenton Arshad | [address] | [address] | | | | | [place] | | | | | [address] | | + + + + + Care Team Providers + +------+ + | Care Pulverizer Name | Role | Phone | + +------+ + | Aleksey Kaleb | PCP | | + +------+ + Encounter Details +--------+------+ + + + | Date | Type | Department | Care Team | Description | +--------+------+ + + + | 05/23/ | Lab | Laboratory at [facility] | | Long-term use of | | 2015 | | [address] | | high-risk medication | | | | [place], [place] | | | | | | [address] | | | | | | [phone] | | | +--------+------+ + + + [...] | [facility] | | | | by Travelmenu,[address] | Hb | REG UNIV | | | | [facility] [place] | | PTH - INTFC | | | | [address] | | | | | | [phone]. | | | | | | Joseph [...] [facility] | [address] | [place], [place] | | | UNIV PTH - INTFC | | [address] | | + + + + + documented in this encounter Visit Diagnoses + + | Diagnosis | + + | Long-term use of high-risk medication | + + documented in this encounter"
--- OUTSIDE RECORDS SUMMARY | ~2018-07-19 | XMS | Encounter Summary ---
Demographics + + + | Address | [address] | | | [place] [address] | + + + | Home Phone | | + + + | Preferred Language | Unknown | + + + | Marital Status | Single | + + + | Yarsani Affiliation | PEN | + + + | Race | White | + + + | Ethnic Group | Not or | + + + Author + + + | Author | [facility] | + + + | Organization | [facility] | + + + | Address | Unknown | + + + | Phone | Unavailable | + + + Support + + + + + | Name | Relationship | Address | Phone | + + + + + | Kenton Arshad | [address] | [address] | | | | | [place] | | | | | [address] | | + + + + + Care Team Providers + +------+ + | Care Hydrostatic Tubing Tester Name | Role | Phone | [...] | +--------+ + + + + | 10/19/ | Telephone | Dermatology | Radha Barillas MD | Discussion | | 2014 | | Medical at [facility] 16th | [address] | | | | | Floor [address] | [place], [place] | | | | | Ave Mail Code: | [address] | | | | | CH16D [facility] | [phone] | | | | | Health and Healing, | | | | | | 16 floor | | | | | | [place], [place] | | | | | | [address] | | | | | | [phone] | | | +--------+ + + + [...]
--- OUTSIDE RECORDS SUMMARY | ~2018-07-19 | XMS | Encounter Summary ---
Demographics + + + | Address | [address] | | | [place] [address] | + + + | Home Phone | | + + + | Preferred Language | Unknown | + + + | Marital Status | Single | + + + | Yazdanism Affiliation | PEN | + + + [...] [place] | | | | | [address] | | + + + + + Care Team Providers + +------+ + | Care Gang Rider Name | Role | Phone | + [...] | | 2014 | | Medical at [facility] 16 | [address] | | | | | Floor [address] | [place], [place] | | | | | Ave Mail Code: | [address] | | | | | [address] [facility] | [phone] | | | | | Health and Healing, | | | | | | 16 floor | | | | | | [place], [place] | | | | | | [address] | | | | | | [phone] | | | +--------+ + + + [...]
--- OUTSIDE RECORDS SUMMARY | ~2018-07-19 | XMS | Encounter Summary ---
Demographics + + + | Address | [address] | | | [place] [address] | + + + | Home Phone | | + + + | Preferred Language | Unknown | + + + | Marital Status | Single | + + + | Samaritan Affiliation | PEN | + + + | Race | White | + + + | Ethnic Group | Not or | + + + Author + + + | Author | [facility] | + + + | Organization | [facility] | + + + | Address | Unknown | + + + | Phone | Unavailable | + + + Support + + + + + | Name | Relationship | Address | Phone | + + + + + | Kenton Arshad | [address] | [address] | | | | | [place] | | | | | [address] | | + + + + + Care Team Providers + +------+ + | Care Supervisor Personnel Clerks Name | Role | Phone | + [...] | | | | | Procedures | [place], [place] | Road | | | | | CONSULT TO | [address] | Physicians | | | | | ENDOCRINOLOG | Phone: | Pavilion | | | | | Y | [phone] | Physicians | | | | | | Fax: | Pavilion | | | | | | [phone] | | | | | | | | [address] | | | | | | | Phone: | | | | | | | [phone] | | | | | | | Fax: | | | | | | | [phone] | +--------+ + + + + + [...] | 2015 | Visit | Medical at [facility] 16 | [address] | (Primary Dx); | | | | Floor [address] | [facility] [place] | Long-term use of | | | | Ave Mail Code: | [address] | high-risk | | | | [address] | [phone] | medication; | | | | Health and Healing, | | Hypercalcemia | | | | 16 floor | | | | | | [facility] [place] | | | | | | [address] | | | | | | [phone] | | | +--------+---------+ + + + [...] are deficient in an enzyme called G lcucpj-6-Jkgmuavjl-Dehydrogenase (G6PD). We will test your enzyme level [...] plan as written. Radha Barillas MD MSCE Bus Driver Supervisor of Dermatology [facility] elBella joseph MD - 05/24/2015 4:58 PM PDTI have reviewed the scribe's note and made changes where appropria te. Bella Zaman MD PGY-3, Department of Dermatology [facility] Electronically signed by Bella Zaman MD at 05/23 8:59 PM PDTEricka Wilson - 05/24/2015 2:29 PM PDT I, Ericka Wilson ([facility]), am functioning as a scribe for Radha Barillas M.D., Professor, Gunn of Dermatology. DERMATOLOGY FOLLOW UP PATIENT VISIT Last Appointment in [facility] was on 09/21/14 at 1:30 pm with [...] She is seeking recommendations for a new molding line assistant for evaluation of her hyperparathy roidism. Prior [...] hyperparathyroid she is not currently seeing an molding line assistant a nd is working on finding another one (the previous one moved). Her calcium from the most rec ent blood work was elevated at 10.7. She reports that the molding line assistant informed her she w ould likely [...] HISTORY: First grandchild born spring 2014 in [place] MEDICATIONS: Current Medication List Name Sig ATENOLOL [...] to have he r infusion here at [facility]. She is unwilling to try --Will try again to work with insurance to allow Mrs. Arshad to have infusions with Rituxin here at [facility]. 2. Hx of melanoma, unknown depth. Not addressed today. 3. Elevated PTH --Dr. Barillas to refer to local molding line assistant, Dr. Sharpe --Most recent calcium at 10.7, asymptomatic 4. Dyspepsia --Continue ranitidine. 5. Dysphagia -- likely 2/2 GERD based on prior EDG. No evidence of malignancy on recent EDG and EGD 1 year ago. Continue to monitor. RETURN VISIT: 3-4 months or sooner if needed Ericka Wilson CMA Department of Dermatology [facility] 05/24/2015 document ed in this encounter Plan [...] | [facility] | | | | by [address] | Hb | REG UNIV | | | | David Garzon, [facility] [place] | | PTH - INTFC | | | | [address] | | | | | | [phone]. | | | | | | Joseph [...] [facility] | [address] | [place], [place] | | | UNIV PTH - INTFC | | [address] | | + + + + + documented in this encounter Visit Diagnoses + + | Diagnosis | + + | Bullous pemphigoid - Primary Pemphigoid | + + | Long-term use of high-risk medication | + + | Hypercalcemia | + + documented in this encounter
--- OUTSIDE RECORDS SUMMARY | ~2018-07-19 | XMS | Encounter Summary ---
Demographics + + + | Address | [address] | | | [place] [address] | + + + | Home Phone [...] [place] | | | | | [address] | | + + + + + Care Team Providers + +------+ + | Care Label Cutter Name | Role | Phone | + [...] | 2014 | | Medical at [facility] 16th | [address] | | | | | Floor [address] | [place], [place] | | | | | Ave Mail Code: | [address] | | | | | CH[address]D [facility] | [phone] | | | | | Health and Healing, | | | | | | 16 floor | | | | | | [place], [place] | | | | | | [address] | | | | | | [phone] | | | +--------+ + + + [...]
--- OUTSIDE RECORDS SUMMARY | ~2018-07-19 | XMS | Encounter Summary ---
Demographics + + + | Address | [address] | | | [place] [address] | + + + | Home Phone [...] + + + | Author | [facility] | + + + | Organization | [facility] | + + + | Address | Unknown | + + + | Phone | Unavailable | + + + Support + + + + + | Name | Relationship | Address | Phone | + + + + + | Kenton Arshad | [address] | [address] | | | | | [place] | | | | | [address] | | + + + + + Care Team Providers + +------+ + | Care Gag Writer Name | Role | Phone | + [...] | | 2016 | | Medical at [facility] 16 | [address] | | | | | Floor [address] | [place], [place] | | | | | Ave Mail Code: | [address] | | | | | CH[address]D [facility] | [phone] | | | | | Health and Healing, | | | | | | 16 floor | | | | | | [place], [place] | | | | | | [address] | | | | | | [phone] | | | +--------+ + + + [...]
--- OUTSIDE RECORDS SUMMARY | ~2018-07-19 | XMS | Encounter Summary ---
Demographics + + + | Address | [address] | | | [place] [address] | + + + | Home Phone [...] [place] | | | | | [address] | | + + + + + Care Team Providers + +------+ + | Care Heel Layer Name | Role | Phone | + [...] 2014 | | Medical at [facility] 16 | [address] | | | | | Floor [address] | [place], [place] | | | | | Ave Mail Code: | [address] | | | | | CH16D [facility] | [phone] | | | | | Health and Healing, | | | | | | 16 floor | | | | | | [place], [place] | | | | | | [address] | | | | | | [phone] | | | +--------+ + + + [...]
--- OUTSIDE RECORDS SUMMARY | ~2018-07-19 | XMS | Encounter Summary ---
Demographics + + + | Address | [address] | | | [place] [address] | + + + | Home Phone | | + + + | Preferred Language | Unknown | + + + | Marital Status | Single | + + + | Jainism Affiliation | PEN | + + + | Race | White | + + + | Ethnic Group | Not or | + + + Author + + + | Author | [facility] | + + + | Organization | [facility] | + + + | Address | Unknown | + + + | Phone | Unavailable | + + + Support + + + + + | Name | Relationship | Address | Phone | + + + + + | Kenton Arshad | [address] | [address] | | | | | [place] | | | | | [address] | | + + + + + Care Team Providers + +------+ + | Care Loader Helper Sorting Yard Name | Role | Phone | + [...] | 2015 | Visit | Medical at [facility] 16 | [address] | (Primary Dx); | | | | Floor [address] | [place], [place] | Encounter for | | | | Ave Mail Code: | [address] | long-term (current) | | | | CH16D Center for | [phone] | use of other | | | | Health and Healing, | | medications | | | | 16 floor | | | | | | [place], [place] | | | | | | [address] | | | | | | [phone] | | | +--------+---------+ + + + [...] and skin cance rs including melanoma. The [place] [employer] (AAD) recommends you wear [...] information is available at the following websites: http://www.[facility]/xd/health/services/dermatology/for-patients/health_info.cfm - [facility] Derm atology http://www.aad.org/public/sun/smart.html - AAD Website [...] and benefits of additional therapeutic options. Radha Barillas MD Supervisor Hardboard of Dermatology [facility] oLuli frederick MD - 05/21/2014 1:47 PM [...] rituximab, will work on getting her this ([facility] - where she is getting her IVIG, her PCP is Kaleb Ryder DO Internal Med [facility] #[id number], [address] [facility] [place] [address]) - start minocycline 100mg BID - continue [...] and will f/u with her after her [facility] Department of Dermatology [facility] 05/21/2014 documented in this e ncounter Plan of Treatment Not on filedocumented as of this encounter Procedures + +--------+ + + + | Procedure Name | Priori | Date/Time | Associated Diagnosis | Comments | | | ty | | | | + +--------+ + + + | ME BIOPSY OF SKIN | Routin | 05/21/2014 [...] foreach | | | | | | imunoreactant.[facility]:jyi4/[email or web address] | | | | | | 015 [...] [facility] | Mailcode CH5D, [address] | [place] [address] | | | DERMATOPATHOLOGY | [address] | | | + + + + + documented in this encounter Visit Diagnoses + + | Diagnosis | + + | Bullous pemphigoid - Primary Pemphigoid | + + | Encounter for long-term (current) use of other medications | + + documented in this encounter
--- OUTSIDE RECORDS SUMMARY | ~2018-07-19 | XMS | Encounter Summary ---
Demographics + + + | Address | [address] | | | [place] [address] | + + + | Home Phone | | + + + | Preferred Language | Unknown | + + + | Marital Status | Single | + + + | Moravian Affiliation | PEN | + + + [...] [place] | | | | | [address] | | + + + + + Care Team Providers + +------+ + | Care Extracting Machine Operator Name | Role | Phone | [...] CH16D | | | | | | [facility] | | | | | | and Healing, 5th | | | | | | floor [place], [place] | | | | | | [address] | | | | | | [phone] | | | +--------+ + + + [...] [facility] | Mailcode CH5D, [address] | [place] [address] | | | DERMATJACKSON | [address] [...] + + | SHAR | [address] | [place] [address] | | | DERMATOPATHOLOGY | [address] | | | + + + + + documented in this encounter Visit Diagnoses Not on filedocumented in this encounter
--- OUTSIDE RECORDS SUMMARY | ~2018-07-19 | XMS | Encounter Summary ---
Demographics + + + | Address | [address] | | | [place] [address] | + + + | Home Phone [...] + + + | Author | [facility] | + + + | Organization | [facility] | + + + | Address | Unknown | + + + | Phone | Unavailable | + + + Support + + + + + | Name | Relationship | Address | Phone | + + + + + | Kenton Arshad | [address] | [address] | | | | | [place] | | | | | [address] | | + + + + + Care Team Providers + +------+ + | Care Insurance Sales Manager Name | Role | Phone | [...] | | 2014 | | Medical at [facility] 16 | [address] | | | | | Floor [address] | [place], [place] | | | | | Ave Mail Code: | [address] | | | | | CH16D [facility] | [phone] | | | | | Health and Healing, | | | | | | 16 floor | | | | | | [place], [place] | | | | | | [address] | | | | | | [phone] | | | +--------+ + + + [...]
--- OUTSIDE RECORDS SUMMARY | ~2018-07-19 | XMS | Encounter Summary ---
Demographics + + + | Address | [address] | | | [place] [address] | + + + | Home Phone [...] [place] | | | | | [address] | | + + + + + Care Team Providers + +------+ + | Care Eyeglass Assembler Name | Role | Phone | [...] 2014 | | Medical at [facility] 16 | [address] | (medication question | | | | Floor [address] | [place], [place] | ) | | | | Ave Mail Code: | [address] | | | | | [facility] [facility] | [phone] | | | | | Health and Healing, | | | | | | 16th floor | | | | | | [place], [place] | | | | | | [address] | | | | | | [phone] | | | +--------+ + + + [...]
--- OUTSIDE RECORDS SUMMARY | ~2018-07-19 | XMS | Encounter Summary ---
Demographics + + + | Address | [address] | | | [place] [address] | + + + | Home Phone | | + + + | Preferred Language | Unknown | + + + | Marital Status | | + + + | Rastafarian Affiliation | 1028 | + + + | Race | Unknown | + + + | Ethnic Group | Unknown | + + + Author + + + | Author | [facility] | | | and Tomana | + + + | Organization | [facility] | | | and Tomana | [...] Team Providers + +------+ + | Care Provider Enrollment Specialist Name | Role | Phone | [...] | | | | | | [place] [address] | | | | | | [phone] | | | +--------+ + + + [...]
--- OUTSIDE RECORDS SUMMARY | ~2018-07-19 | XMS | Encounter Summary ---
Demographics + + + | Address | [address] | | | [place] [address] | + + + | Home Phone [...] [place] | | | | | [address] | | + + + + + Care Team Providers + +------+ + | Care Corporate Sales Representative Name | Role | Phone | + [...] [place] | | | | | | [facility] | | | | | | [place], [place] | | | | | | [address] | | | +--------+ + + + [...]
--- OUTSIDE RECORDS SUMMARY | ~2018-07-19 | XMS | Encounter Summary ---
Demographics + + + | Address | [address] | | | [place] [address] | + + + | Home Phone | | + + + | Preferred Language | Unknown | + + + | Marital Status | Single | + + + | Bahai Affiliation | PEN | + + + [...] [place] | | | | | [address] | | + + + + + Care Team Providers + +------+ + | Care Hazardous Waste Remover Name | Role | Phone | + [...] 2014 | | Medical at [facility] 16 | [address] | | | | | Floor [address] | [place], [place] | | | | | Ave Mail Code: | [address] | | | | | CH16D [facility] | [phone] | | | | | Health and Healing, | | | | | | 16 floor | | | | | | [place], [place] | | | | | | [address] | | | | | | [phone] | | | +--------+ + + + [...]
[2018-07-19] MEDS ORDERED: LATANOPROST 0.7.5 ML OP (03:00)
[2018-07-19] MEDS ORDERED: MICARDIS80 MG PO (03:01)
[2018-07-19] MEDS ORDERED: HYDROCHLOROTHIA25 MG PO (03:01)
[2018-07-19] MEDS ORDERED: SYNTHROID88 MCG PO (03:02)
[2018-07-19] MEDS ORDERED: LIPITOR40 MG PO (03:03)
[2018-07-19] MEDS ORDERED: CLOPIDOGREL75 MG PO (03:03)
[2018-07-19] MEDS ORDERED: METOPROLOL SUC100 MG PO (03:04)
[2018-07-19] MEDS ORDERED: ASPIR 8181 MG PO (03:04)
[2018-07-19] MEDS ORDERED: DORZOLAMIDE-TI1 EACH OP (03:05)
--- NOTE | 2018-07-19 07:42 | EKG ---
[facility] [address] [facility] [place], [place] [address] Signed Sinus rhythm with 1st degree AV block Left axis deviation Inferior infarct , age undetermined Anterolateral infarct , age undetermined Abnormal ECG When compared with ECG of 15-JUL-2017 04:27, Significant changes have occurred Confirmed by GEOVANNI DAWSON MD ([id number]) on 07/19/2018 7:42:13 AM Electronically Signed By: GEOVANNI DAWSON MD 07/19/18 0742 PATIENT NAME: ADE DUMONT Electrocardiogram DATE OF : 43 PHYSICIAN: GEOVANNI DAWSON MD REPORT #: [id number] REPORT IS CONFIDENTIAL AND NOT TO BE RELEASED WITHOUT AUTHORIZATION
== END 2018-07-19 04:39 | disposition home or self-care (01) ==
LOC: ED 02:43
DX: R07.9 Chest pain, unspecified (principal); E11.65 Type 2 diabetes mellitus with hyperglycemia; E03.9 Hypothyroidism, unspecified; I25.2 Old myocardial infarction; Z90.49 Acquired absence of other specified parts of digestive tract; Z88.1 Allergy status to other antibiotic agents; Z88.8 Allergy status to other drugs, medicaments and biological substances; Z79.82 Long term (current) use of aspirin; Z79.899 Other long term (current) drug therapy; Z85.820 Personal history of malignant melanoma of skin
CPT/HCPCS: 71045; 80053; 83735; 84484; 85025; 93005; 93010; 99285-25; J1815

== ENCOUNTER 2021-11-21 05:14 | Emergency (ER) | payer MEDICARE ==
[~2021-11-21] VITALS: Ht 165.1 cm; Wt 90.7 kg
[~2021-11-21 05:14] MED LIST changes: +ASPIR 8181 MG PO; +CLOPIDOGREL75 MG PO; +DORZOLAMIDE-TI1 EACH OP; +HYDROCHLOROTHIA25 MG PO; +LATANOPROST 0.7.5 ML OP; +LIPITOR40 MG PO; +METOPROLOL SUC100 MG PO; +MICARDIS80 MG PO
[2021-11-21] MEDS ORDERED: CEPHALEXIN500 M1 PO (07:53)
--- NOTE | 2021-11-21 18:02 | EKG ---
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
== END 2021-11-21 08:06 | disposition home or self-care (01) ==
LOC: ED 05:14
DX: N39.0 Urinary tract infection, site not specified (principal); E11.9 Type 2 diabetes mellitus without complications; I10 Essential (primary) hypertension; E78.5 Hyperlipidemia, unspecified; K21.9 Gastro-esophageal reflux disease without esophagitis; Z88.8 Allergy status to other drugs, medicaments and biological substances; Z88.1 Allergy status to other antibiotic agents; Z79.899 Other long term (current) drug therapy; Z79.82 Long term (current) use of aspirin; Z79.02 Long term (current) use of antithrombotics/antiplatelets
CPT/HCPCS: 36415; 74177; 80053; 81001; 83605; 83690; 84484; 85025; 87040; 87077; 87088; 87186; 93005; 93010; 96375; 99284-25; J0696; J2405; J3010; Q9967

== ENCOUNTER 2022-06-26 09:40 | Emergency (ER) | payer MEDICARE, OTHER ==
[~2022-06-26] VITALS: Ht 165.1 cm; Wt 77.7 kg
[~2022-06-26 09:40] MED LIST changes: +CEPHALEXIN500 M1 PO
[2022-06-26 11:33] VITALS: BP 142/95
== END 2022-06-26 11:30 | disposition home or self-care (01) ==
LOC: ED 09:40
DX: S30.0XXA Contusion of lower back and pelvis, initial encounter (principal); E11.9 Type 2 diabetes mellitus without complications; W01.0XXA Fall on same level from slipping, tripping and stumbling without subsequent striking against object, initial encounter; Z88.8 Allergy status to other drugs, medicaments and biological substances; Z79.899 Other long term (current) drug therapy; Z79.890 Hormone replacement therapy; Z79.82 Long term (current) use of aspirin
CPT/HCPCS: 72170; 72220; 99283-25

== ENCOUNTER 2023-06-01 16:53 | Inpatient (IN) | payer MEDICARE, OTHER ==
[~2023-06-01] VITALS: Ht 165.1 cm; Wt 83.7 kg
[~2023-06-01 16:53] MED LIST changes: -ASPIR 8181 MG PO; -DORZOLAMIDE-TI1 EACH OP; +DORZOLAMIDE-TI1 EACH OU; +HYDROCODON-ACE1 EA10 PO; -LATANOPROST 0.7.5 ML OP; +LO-DOSE ASPIRIN81 MG PO; +XALATAN2.5 ML OU
[2023-06-01] MEDS ORDERED: LEVEMIR100 UNIT/1 SUB-Q (17:06)
[2023-06-01] MEDS ORDERED: OZEMPIC0.25 MG/02 SUB-Q (17:07)
[2023-06-01] MEDS ORDERED: BRIMONIDINE TART5 ML OPTH (17:08)
[2023-06-01] MEDS ORDERED: DOXAZOSIN MESYLA4 MG PO (17:09)
[2023-06-01] MEDS ORDERED: SODIUM CHLORIDE 0.9% 500 ML IV PRN (17:15)
[2023-06-01 17:25] LABS: BASOPHILS 0.6 % (0-2); HEMATOCRIT 39.6 % (35.0-50.0); HEMOGLOBIN 13.3 g/dL (12.0-18.0); LYMPHOCYTES 29.6 % (24-44); MCH 31.1 (27-36); MCHC 33.7 g/dl (30-36); MCV 92.4 fl (81-99); MONOCYTES 5.6 % (0-12); NEUTROPHILS 61.2 % (39-80); PLATELET COUNT 161 K/uL (140-440); RBC 4.28 M/ul (4.3-5.7)
[2023-06-01 17:40] LABS: ALBUMIN 3.2 g/dL (3.4-5.0); ANION GAP 13.6 (7-21); BILIRUBIN, TOTAL 0.6 ng/dL (0.2-1.0); BUN/CREATININE RATIO 9.52 (6.0-28.6); CALCIUM 9.2 mg/dL (8.5-10.1); CREATININE, SERUM 1.68 mg/dL (0.55-1.02); POTASSIUM 3.6 mmol/L (3.5-5.1); PROTEIN, TOTAL 6.4 g/dL (6.4-8.2)
[2023-06-01] MEDS ORDERED: ASPIRIN 81 MG TABEC PO SCH (20:14)
[2023-06-01] MEDS ORDERED: ATORVASTATIN 40 MG TAB PO SCH (20:14)
[2023-06-01] MEDS ORDERED: METOPROLOL SUCCINATE 100 MG TABCR PO SCH (20:16)
[2023-06-01] MEDS ORDERED: IBLOOD GLUCOSE TEST STRIP 1 EA TEST XX PRN (20:30)
[2023-06-01] MEDS ORDERED: DEXTROSE 5% 1,000 ML IV PRN (20:30)
[2023-06-01] MEDS ORDERED: GLUCAGON,HUMAN RECOMBINANT 1 MG/ML VIAL SUB-Q PRN (20:30)
[2023-06-01] MEDS ORDERED: DEXTROSE 50% 50 ML SYR IV PRN ×2 (20:30)
[2023-06-01 20:40] VITALS: BP 191/85
[2023-06-01] MEDS ORDERED: INSULIN GLARGINE-YFGN 100 UNIT/ML ML SUB-Q SCH (21:00)
[2023-06-01] MEDS ORDERED: INSULIN LISPRO 100 UNIT/ML ML SUB-Q SCH (21:00)
[2023-06-01] MEDS ORDERED: ondansetron HCL 4 MG/2 ML VIAL IV PRN (21:00)
[2023-06-01] MEDS ORDERED: MELATONIN 3 MG TAB PO PRN (21:00)
[2023-06-01] MEDS ORDERED: ACETAMINOPHEN 500 MG TAB PO PRN (21:00)
[2023-06-01] MEDS ORDERED: IBLOOD GLUCOSE TEST STRIP 1 EA TEST VI SCH (21:00)
[2023-06-01] MEDS ORDERED: hydrALAZINE HCL 20 MG/ML VIAL IV PRN (21:00)
[2023-06-01 23:41] VITALS: BP 143/57
[2023-06-02] VITALS (9 sets, daily range): BP systolic 143–199; BP diastolic 76–108
[2023-06-02 05:39] LABS: BASOPHILS 0.9 % (0-2); EOSINOPHILS 2.4 % (0-6); HEMATOCRIT 34.9 % (35.0-50.0); HEMOGLOBIN 12.2 g/dL (12.0-18.0); LYMPHOCYTES 30.8 % (24-44); MCH 31.8 (27-36); MCV 90.8 fl (81-99); MONOCYTES 6.1 % (0-12); NEUTROPHILS 59.8 % (39-80); PLATELET COUNT 138 K/uL (140-440); RBC 3.85 M/ul (4.3-5.7); RDW 13.5 (10.5-15.0)
[2023-06-02 05:52] LABS: CHOLESTEROL/HDL RATIO 5.4
[2023-06-02] MEDS ORDERED: DOXAZOSIN MESYLATE 4 MG TAB PO SCH (06:00)
--- NOTE | 2023-06-02 06:36 | EKG ---
[facility] [address] [place] [address] Signed Sinus rhythm with premature supraventricular complexes Left axis deviation Minimal voltage criteria for LVH, may be normal variant Inferior infarct (cited on or before 19-JUL-2018) Possible Anterolateral infarct (cited on or before 19-JUL-2018) Abnormal ECG When compared with ECG of 21-NOV-2021 05:51, premature supraventricular complexes are now present Nonspecific T wave abnormality now evident in Anterolateral leads Confirmed by Radha Koenig ([id number]) on 06/02/2023 6:35:53 AM Electronically Signed By: RADHA KOENIG MD 06/02/23 0636 PATIENT NAME: ADE DUMONT Electrocardiogram DATE OF : 43 PHYSICIAN: RADHA KOENIG MD REPORT #: [id number] REPORT IS CONFIDENTIAL AND NOT TO BE RELEASED WITHOUT AUTHORIZATION
[2023-06-02 07:05] LABS: ANION GAP 13.1 (7-21); BUN/CREATININE RATIO 11.34 (6.0-28.6); CALCIUM 8.8 mg/dL (8.5-10.1); CREATININE, SERUM 1.41 mg/dL (0.55-1.02); POTASSIUM 3.1 mmol/L (3.5-5.1)
[2023-06-02] MEDS ORDERED: POTASSIUM CHLORIDE 40 MEQ,LIDOCAINE HCL 1% 40 MG in DEXTROSE 5% 500 ML IV ONE (08:00)
[2023-06-02] MEDS ORDERED: LEVOTHYROXINE SODIUM 88 MCG TAB PO SCH (09:00)
[2023-06-02] MEDS ORDERED: METOPROLOL SUCCINATE 100 MG TABCR PO SCH (09:00)
[2023-06-02] MEDS ORDERED: LANTUS SOL100 UNIT/1 SUB-Q (09:25)
[2023-06-02] MEDS ORDERED: PHARMACY RENAL DOSE ADJUSTMENT 1 DOSE MISC PO SCH (12:00)
[2023-06-02] MEDS ORDERED: LOSARTAN POTASSIUM 100 MG TAB PO SCH (13:45)
[2023-06-02 20:22] LABS: BILIRUBIN, URINE NEGATIVE (negative); BLOOD/HGB, URINE TRACE-I (Negative); KETONE, URINE NEGATIVE (Negative); LEUK ESTERASE, URINE NEGATIVE (negative); NITRITE, URINE NEGATIVE (negative)
[2023-06-02 20:27] LABS: EPITHELIAL CELLS, URINE SQUAMOUS 1+ /lpf (0-1+)
[2023-06-02 20:28] LABS: BACTERIA, URINE 4+ /hpf (negative); CASTS, URINE NONE SEEN \\lpf; CRYSTALS, URINE NONE SEEN (0-1+); REFLEX CULTURE, URINE Yes (No); WHITE BLOOD CELLS, URINE 21-40 /HPF (0-5)
[2023-06-03] VITALS (10 sets, daily range): BP systolic 113–186; BP diastolic 77–93
[2023-06-03] MEDS ORDERED: CEFTRIAXONE/SODIUM CHLORIDE 1 GM/100 ML PIGGYBACK IV SCH (06:30)
[2023-06-03 11:32] LABS: BASOPHILS 0.7 % (0-2); EOSINOPHILS 2.8 % (0-6); HEMATOCRIT 38.4 % (35.0-50.0); HEMOGLOBIN 13.2 g/dL (12.0-18.0); LYMPHOCYTES 16.1 % (24-44); MCH 31.5 (27-36); MCHC 34.2 g/dl (30-36); MONOCYTES 4.3 % (0-12); NEUTROPHILS 76.1 % (39-80); PLATELET COUNT 156 K/uL (140-440); RBC 4.17 M/ul (4.3-5.7); RDW 13.5 (10.5-15.0)
[2023-06-03 11:46] LABS: ANION GAP 14.7 (7-21); BUN/CREATININE RATIO 10.71 (6.0-28.6); CALCIUM 9.3 mg/dL (8.5-10.1); CREATININE, SERUM 1.4 mg/dL (0.55-1.02); POTASSIUM 3.7 mmol/L (3.5-5.1)
[2023-06-03] MEDS ORDERED: AMLODIPINE BESYLATE 10 MG TAB PO SCH (15:00)
[2023-06-04 05:05] VITALS: BP 156/83
[2023-06-04 05:30] LABS: BASOPHILS 0.8 % (0-2); EOSINOPHILS 3.5 % (0-6); HEMOGLOBIN 13.3 g/dL (12.0-18.0); LYMPHOCYTES 23.2 % (24-44); MCH 31.6 (27-36); MCHC 34.9 g/dl (30-36); MCV 90.6 fl (81-99); MONOCYTES 4.7 % (0-12); NEUTROPHILS 67.8 % (39-80); PLATELET COUNT 173 K/uL (140-440); RBC 4.19 M/ul (4.3-5.7); RDW 13.7 (10.5-15.0)
[2023-06-04 05:40] LABS: ANION GAP 14.6 (7-21); BUN/CREATININE RATIO 10.63 (6.0-28.6); CALCIUM 9.6 mg/dL (8.5-10.1); CREATININE, SERUM 1.41 mg/dL (0.55-1.02); POTASSIUM 3.6 mmol/L (3.5-5.1)
[2023-06-04 09:38] VITALS: BP 154/81
[2023-06-04] MEDS ORDERED: hydrALAZINE HCL 10 MG TABLET PO SCH (13:00)
[2023-06-04 13:53] VITALS: BP 149/96
[2023-06-04 14:42] VITALS: BP 149/96
[2023-06-04] MEDS ORDERED: CHLORTHALIDONE 25 MG TAB PO SCH (17:00)
[2023-06-04 17:25] VITALS: BP 173/75
[2023-06-04 20:24] VITALS: BP 165/64
[2023-06-05 02:36] VITALS: BP 167/84
[2023-06-05 04:10] VITALS: BP 167/84
[2023-06-05 05:27] VITALS: BP 154/94
[2023-06-05 05:38] LABS: BASOPHILS 0.5 % (0-2); EOSINOPHILS 2.6 % (0-6); HEMATOCRIT 37.5 % (35.0-50.0); HEMOGLOBIN 13.4 g/dL (12.0-18.0); LYMPHOCYTES 24.1 % (24-44); MCH 32.2 (27-36); MCHC 35.6 g/dl (30-36); MCV 90.3 fl (81-99); MONOCYTES 7.1 % (0-12); NEUTROPHILS 65.7 % (39-80); PLATELET COUNT 183 K/uL (140-440); RBC 4.15 M/ul (4.3-5.7)
[2023-06-05 05:44] LABS: ANION GAP 13.7 (7-21); BUN/CREATININE RATIO 10.62 (6.0-28.6); CALCIUM 9.7 mg/dL (8.5-10.1); CREATININE, SERUM 1.6 mg/dL (0.55-1.02); POTASSIUM 3.7 mmol/L (3.5-5.1)
[2023-06-05] MEDS ORDERED: POLYETHYLENE GLYCOL 3350 1 PACKET PO ONE (06:15)
[2023-06-05] MEDS ORDERED: AMLODIPINE BESYLATE 10 MG TAB PO SCH (10:22)
[2023-06-05] MEDS ORDERED: hydrALAZINE HCL 25 MG TAB PO SCH (13:00)
[2023-06-05] MEDS ORDERED: HALOPERIDOL LACTATE 5 MG/ML VIAL IV ONE (15:00)
[2023-06-05 17:18] VITALS: BP 177/78
[2023-06-05] MEDS ORDERED: MELATONIN 3 MG TAB PO PRN (18:45)
[2023-06-05 20:53] VITALS: BP 167/84
[2023-06-05 23:43] VITALS: BP 167/84
[2023-06-06] VITALS (8 sets, daily range): BP systolic 145–174; BP diastolic 65–85
[2023-06-06 05:57] LABS: BASOPHILS 0.6 % (0-2); EOSINOPHILS 3.7 % (0-6); HEMATOCRIT 35.7 % (35.0-50.0); HEMOGLOBIN 12.3 g/dL (12.0-18.0); LYMPHOCYTES 33.4 % (24-44); MCH 31.5 (27-36); MCHC 34.4 g/dl (30-36); MCV 91.5 fl (81-99); MONOCYTES 7.8 % (0-12); NEUTROPHILS 54.5 % (39-80); PLATELET COUNT 164 K/uL (140-440); RDW 13.8 (10.5-15.0)
[2023-06-06 06:12] LABS: ANION GAP 13.5 (7-21); BUN/CREATININE RATIO 11.68 (6.0-28.6); CALCIUM 9.1 mg/dL (8.5-10.1); CREATININE, SERUM 1.54 mg/dL (0.55-1.02); POTASSIUM 3.5 mmol/L (3.5-5.1)
[2023-06-06] MEDS ORDERED: POLYETHYLENE GLYCOL 3350 1 PACKET PO SCH (12:16)
[2023-06-06] MEDS ORDERED: SENNOSIDES/DOCUSATE 1 EA TAB PO SCH (21:00)
[2023-06-07] VITALS (8 sets, daily range): BP systolic 145–173; BP diastolic 61–83
[2023-06-07 05:57] LABS: ANION GAP 10.4 (7-21); BUN/CREATININE RATIO 12.5 (6.0-28.6); CALCIUM 9.4 mg/dL (8.5-10.1); CREATININE, SERUM 1.68 mg/dL (0.55-1.02); POTASSIUM 3.4 mmol/L (3.5-5.1)
[2023-06-07] MEDS ORDERED: POTASSIUM CHLORIDE 10 MEQ TABCR PO ONE (11:00)
[2023-06-07] MEDS ORDERED: TRIAMCINOLONE 0.1% 15 GM TUBE TOP SCH (15:00)
[2023-06-08 00:22] VITALS: BP 156/68
[2023-06-08 05:43] LABS: BUN/CREATININE RATIO 12.35 (6.0-28.6); CALCIUM 9.7 mg/dL (8.5-10.1); CREATININE, SERUM 1.7 mg/dL (0.55-1.02)
[2023-06-08 05:49] VITALS: BP 150/76
[2023-06-08] MEDS ORDERED: CEFDINIR 300 MG CAP PO SCH (09:00)
[2023-06-08 10:14] VITALS: BP 156/80
[2023-06-08 12:56] VITALS: BP 146/98
[2023-06-08] MEDS ORDERED: HYDRALAZINE HCL25 MG PO (12:59)
[2023-06-08] MEDS ORDERED: CEFDINIR300 MG PO (12:59)
[2023-06-08] MEDS ORDERED: AMLODIPINE BESY10 MG PO (13:00)
[2023-06-08] MEDS ORDERED: LOSARTAN POTAS100 MG PO (13:00)
[2023-06-08] MEDS ORDERED: CHLORTHALIDONE25 MG PO (13:01)
[2023-06-08] MEDS ORDERED: TRIAMCINOLONE A15 G1 TOP (13:01)
== END 2023-06-08 13:53 | DRG 92 ==
LOC: ED 16:53 → MS 16:54
PROVIDERS: Emergency Medicine; Family Medicine; ADMIT Family Medicine; ATTEND Family Medicine
DX: G92.8 Other toxic encephalopathy (principal); E87.0 Hyperosmolality and hypernatremia; E87.1 Hypo-osmolality and hyponatremia; N17.9 Acute kidney failure, unspecified; N39.0 Urinary tract infection, site not specified; I16.9 Hypertensive crisis, unspecified; G45.9 Transient cerebral ischemic attack, unspecified; E11.22 Type 2 diabetes mellitus with diabetic chronic kidney disease; Z66 Do not resuscitate; N18.30 Chronic kidney disease, stage 3 unspecified; D35.1 Benign neoplasm of parathyroid gland; I12.9 Hypertensive chronic kidney disease with stage 1 through stage 4 chronic kidney disease, or unspecified chronic kidney disease; E87.8 Other disorders of electrolyte and fluid balance, not elsewhere classified; E87.6 Hypokalemia; E86.0 Dehydration; E03.9 Hypothyroidism, unspecified; H40.9 Unspecified glaucoma; I25.2 Old myocardial infarction; Z90.49 Acquired absence of other specified parts of digestive tract; Z98.890 Other specified postprocedural states; Z90.89 Acquired absence of other organs; Z95.5 Presence of coronary angioplasty implant and graft; Z79.899 Other long term (current) drug therapy; Z88.8 Allergy status to other drugs, medicaments and biological substances; Z88.1 Allergy status to other antibiotic agents; Z79.2 Long term (current) use of antibiotics; Z79.4 Long term (current) use of insulin; Z79.82 Long term (current) use of aspirin; Z79.890 Hormone replacement therapy; Z91.148 Patient's other noncompliance with medication regimen for other reason
CPT/HCPCS: 36415; 70450; 70496; 70498; 70551; 80048; 80053; 80061; 81001; 83036; 83735; 85025; 87040; 87077; 87088; 87186; 93005; 93010; 93306; 93975; 96360; 97162; 97166; 97530; 97535; 99285-25; A9270; G0378; J0360; J0696; J1815; J2405; J3480; J3490; J7040; J7060; Q9967

== ENCOUNTER 2024-10-18 11:11 | Emergency (ER) | payer MEDICARE, OTHER ==
[~2024-10-18] VITALS: Ht 165.1 cm; Wt 86.0 kg
[~2024-10-18 11:11] MED LIST changes: +AMLODIPINE BESY10 MG PO; +BRIMONIDINE TART5 ML; +BRIMONIDINE TART5 ML OPTH; +CEFDINIR300 MG PO; +CHLORTHALIDONE25 MG PO; +DOXAZOSIN MESYLA4 MG PO; +HYDRALAZINE HCL25 MG PO; +LANTUS SOL100 UNIT/1 SUB-Q; +LEVEMIR100 UNIT/1 SUB-Q; +LEVOTHYROXINE88 MCG PO; +LOSARTAN POTAS100 MG PO; +NASAL DECONGEST30 MG PO; +OZEMPIC0.25 MG/02 SUB-Q; +TRIAMCINOLONE A15 G1 TOP
[2024-10-18] MEDS ORDERED: MOUNJARO2.5 MG/0.5 SUB-Q (11:38)
[2024-10-18] MEDS ORDERED: LIDOCAINE HCL 4% 1 EACH PATCH TD ONE (11:45)
[2024-10-18 12:23] VITALS: BP 160/79
[2024-10-18] MEDS ORDERED: LIDOCAINE PATCH REMOVAL 1 EA TD SCH (21:00)
== END 2024-10-18 12:24 | disposition home or self-care (01) ==
LOC: ED 11:11
DX: S20.211A Contusion of right front wall of thorax, initial encounter (principal); E03.9 Hypothyroidism, unspecified; E11.9 Type 2 diabetes mellitus without complications; I10 Essential (primary) hypertension; W18.2XXA Fall in (into) shower or empty bathtub, initial encounter; Z79.82 Long term (current) use of aspirin; Z79.899 Other long term (current) drug therapy; Z88.1 Allergy status to other antibiotic agents; Z88.8 Allergy status to other drugs, medicaments and biological substances
CPT/HCPCS: 71100; 99283; A9270